=== PATIENT | male | born 1950 | race Caucasian/White ===

== ENCOUNTER 2016-07-28 11:21 | Emergency (ER) ==
[2016-07-28 11:32] VITALS: BP 135/63; TEMP 98.2; BMI 20.7
[2016-07-28 12:00] LABS: BASOPHILS # (AUTO) 0.1 K/uL (0-0.2); BASOPHILS % (AUTO) 0.9 % (0.0-3.0); EOSINOPHILS # (AUTO) 0.4 K/ul (0.0-0.7); EOSINOPHILS % (AUTO) 7.8 % (0.0-7.0); HEMATOCRIT 38.6 % (42.0-52.0); HEMOGLOBIN 12.4 g/dl (14.0-18.0); IMMATURE GRANULOCYTE % (AUTO) 0.2 % (0.0-5.0); LYMPHOCYTES # (AUTO) 2.4 K/uL (0.60-3.4); LYMPHOCYTES % (AUTO) 44.8 (10.0-50.0); MEAN CORPUSCULAR HEMOGLOBIN 29.8 pg (27.0-31.0); MEAN CORPUSCULAR HGB CONC 32.1 (31.8-35.4); MEAN CORPUSCULAR VOLUME 92.8 fl (80.0-94.0); MONOCYTES # (AUTO) 0.3 K/uL (0.4-2.0); MONOCYTES % (AUTO) 6.3 (0-10); NEUTROPHILS # (AUTO) 2.1 K/ul (2.0-6.9); PLATELET COUNT 235 10^3/uL (140-440); RED BLOOD COUNT 4.16 10^6/ul (4.70-6.10); WHITE BLOOD COUNT 5.36 K/ul (4.2-10.2)
[2016-07-28 12:20] LABS: ALBUMIN 3.9 g/dL (3.4-5.0); ALBUMIN/GLOBULIN RATIO 1.15; ANION GAP 10.2; BILIRUBIN,TOTAL 0.3 mg/dL (0.00-1.20); BUN/CREATININE RATIO 13.04; CALCIUM 9.2 mg/dL (8.2-10.2); CREATININE 0.92 mg/dL (0.60-1.10); POTASSIUM 4.2 mmol/L (3.5-5.1); TOTAL PROTEIN 7.3 g/dL (5.8-8.1)
--- NOTE | 2016-07-28 12:37 | CT ---
EXAM: CT of the chest without contrast. History: Cough. Comparison: Chest radiograph 03/21/2016, chest CT 06/21/2012 Technique: Multiplanar CT images through the thorax were obtained without the administration of IV contrast Findings: Heart size is normal. Coronary artery calcifications. Ectatic ascending aorta measuring 3.9 cm in caliber. No pathologically enlarged axillary lymph nodes. Calcified mediastinal and hil ar lymph nodes again noted. Emphysema again appreciated. Mild right basilar infiltrate. Biapical lung scarring, less noticeabl e on the right. There is new thickening along the left major fissure with focal nodule measuring 1 cm axial image 38. No pneumothorax and no pleural fluid. Calcified nodules again seen within the le ft lung. The within the visualized upper abdomen, no acute findings. No acute osseous abnormalities. Impression: 1. Mild right basilar pneumonia. 2. Biapical lung scarring again noted which has improved on the right. 3. There is new thickening of the left major fissure with 1 cm focal nodule. This nodule could be b enign or malignant. Consider correlation with PET CT. Otherwise, recommend follow-up chest CT in 3 -6 months. 4. Emphysema again noted. 5. Coronary artery disease.
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
== END 2016-07-28 13:34 | disposition home or self-care (01) ==
LOC: ED 11:21
DX: J18.9 Pneumonia, unspecified organism (principal); R91.1 Solitary pulmonary nodule; I10 Essential (primary) hypertension; J44.9 Chronic obstructive pulmonary disease, unspecified; Z79.899 Other long term (current) drug therapy; Z87.891 Personal history of nicotine dependence
CPT/HCPCS: 36415; 80053; 85025; 85379; 99283

== ENCOUNTER 2017-02-04 15:51 | Inpatient (IN) ==
[2017-02-04] MEDS ORDERED: SODIUM CHLORIDE 1,000 ML IV STA (16:04)
[2017-02-04] MEDS ORDERED: ROCEPHIN 1 GM in SODIUM CHLORIDE 50 ML IV STA (16:04)
[2017-02-04] MEDS ORDERED: SOLU-MEDROL 40 MG IVP STA (16:04)
[2017-02-04] MEDS ORDERED: ROCEPHIN ONE (16:24)
[2017-02-04 16:34] LABS: BASOPHILS % (AUTO) 0.4 % (0.0-3.0); EOSINOPHILS # (AUTO) 0.3 K/ul (0.0-0.7); EOSINOPHILS % (AUTO) 2.7 % (0.0-7.0); HEMATOCRIT 33.3 % (42.0-52.0); HEMOGLOBIN 10.8 g/dl (14.0-18.0); IMMATURE GRANULOCYTE % (AUTO) 0.3 % (0.0-5.0); LYMPHOCYTES # (AUTO) 1.7 K/uL (0.60-3.4); LYMPHOCYTES % (AUTO) 17.7 (10.0-50.0); MEAN CORPUSCULAR HEMOGLOBIN 30.3 pg (27.0-31.0); MEAN CORPUSCULAR HGB CONC 32.4 (31.8-35.4); MEAN CORPUSCULAR VOLUME 93.3 fl (80.0-94.0); MONOCYTES % (AUTO) 10.1 (0-10); NEUTROPHILS # (AUTO) 6.6 K/ul (2.0-6.9); NEUTROPHILS % (AUTO) 68.8; PLATELET COUNT 302 10^3/uL (140-440); RED BLOOD COUNT 3.57 10^6/ul (4.70-6.10); WHITE BLOOD COUNT 9.61 K/ul (4.2-10.2)
--- NOTE | 2017-02-04 16:45 | CT ---
EXAM: CT of the chest without contrast History: Productive cough. Comparison: Chest CT 07/28/2016 Technique: Multiplanar CT images through the thorax were obtained without the administration of IV c ontrast Findings: Heart size is normal. No coronary calcifications. Atherosclerotic vascular calcifications . Ectatic ascending aorta again noted. No axillary or mediastinal lymphadenopathy. Evaluation for hilar lymph nodes is limited due to lack of contrast administration. Scattered areas of lung scarrin g again noted. Emphysema. There is new consolidation within the right lower lobe. No pneumothorax. Increased size of nodule along the left major fissure now measuring 1.4 cm x 0.9 cm and previously m easured 1 cm. This nodule demonstrates spiculations. No pleural fluid and no pneumothorax. Within the visualized upper abdomen, no acute findings. Stable rim calcified nodule or vascular abno rmality within the left kidney. No acute osseous abnormalities. Impression: 1. Right lower lobe pneumonia. 2. Increasing size of spiculated nodule along the left major fissure is suspicious for malignancy. Biopsy recommended. 3. Emphysema.
[2017-02-04 16:46] LABS: ABG PH 7.368 (7.35-7.45)
[2017-02-04 16:47] LABS: ABG BASE EXCESS 6 (-2.0-2.0); ABG HCO3 31.4 (22.0-26.0); ABG PCO2 54.7 mmHg (35-45); ABG TCO2 33 (22.0-28.0)
[2017-02-04 16:50] LABS: FLU INTERNAL QC INTERNAL QC VALID; RAPID FLU A NEGATIVE (NEGATIVE); RAPID FLU B NEGATIVE (NEGATIVE)
[2017-02-04 16:54] LABS: ALBUMIN 3.1 g/dL (3.4-5.0); ALBUMIN/GLOBULIN RATIO 0.82; ANION GAP 11.9; BILIRUBIN,TOTAL 0.4 mg/dL (0.00-1.20); BUN/CREATININE RATIO 13.79; CALCIUM 9.2 mg/dL (8.2-10.2); CREATININE 0.87 mg/dL (0.60-1.10); POTASSIUM 3.9 mmol/L (3.5-5.1); TOTAL PROTEIN 6.9 g/dL (5.8-8.1)
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
[2017-02-04] MEDS ORDERED: TYLENOL PO PRN (17:21)
[2017-02-04] MEDS ORDERED: SODIUM CHLORIDE 1,000 ML IV SCH (17:30)
[2017-02-04 18:22] VITALS: BMI 21.5
[2017-02-04] MEDS: SOLU-MEDROL 40 MG IVP SCH (20:19)
[2017-02-04] MEDS: VANCOMYCIN 1 GM in SODIUM CHLORIDE 250 ML IV SCH (20:24)
[2017-02-04] MEDS: XOPENEX 0.63 MG NEB SCH (22:11)
[2017-02-05] MEDS ORDERED: XOPENEX 0.63 MG NEB ONE (04:55)
[2017-02-05] MEDS: XOPENEX 0.63 MG NEB SCH ×3 (05:21→19:16)
[2017-02-05 05:55] LABS: HEMATOCRIT 31.4 % (42.0-52.0); HEMOGLOBIN 10.1 g/dl (14.0-18.0); IMMATURE GRANULOCYTE % (AUTO) 0.5 % (0.0-5.0); LYMPHOCYTES % (AUTO) 12.4 (10.0-50.0); MEAN CORPUSCULAR HEMOGLOBIN 29.4 pg (27.0-31.0); MEAN CORPUSCULAR HGB CONC 32.2 (31.8-35.4); MEAN CORPUSCULAR VOLUME 91.3 fl (80.0-94.0); MONOCYTES # (AUTO) 0.2 K/uL (0.4-2.0); MONOCYTES % (AUTO) 1.9 (0-10); NEUTROPHILS # (AUTO) 6.6 K/ul (2.0-6.9); NEUTROPHILS % (AUTO) 85.2; PLATELET COUNT 245 10^3/uL (140-440); RED BLOOD COUNT 3.44 10^6/ul (4.70-6.10); WHITE BLOOD COUNT 7.73 K/ul (4.2-10.2)
[2017-02-05 06:16] LABS: ALANINE AMINOTRANSFERASE < 6 U/L (12-78); ALBUMIN 2.7 g/dL (3.4-5.0); ALBUMIN/GLOBULIN RATIO 0.71; ALKALINE PHOSPHATASE 53 U/L (56-119); ANION GAP 11.7; ASPARTATE AMINO TRANSFERASE 11 U/L (15-37); BILIRUBIN,TOTAL 0.25 mg/dL (0.00-1.20); BLOOD UREA NITROGEN 16 mg/dL (7-18); BUN/CREATININE RATIO 20.77; CALCIUM 8.9 mg/dL (8.2-10.2); CARBON DIOXIDE 28 mmol/L (23-31); CHLORIDE 102 mmol/L (98-107); CREATININE 0.77 mg/dL (0.60-1.10); GLUCOSE 147 mg/dL (82-115); POTASSIUM 4.7 mmol/L (3.5-5.1); SODIUM 137 mmol/L (136-145); TOTAL PROTEIN 6.5 g/dL (5.8-8.1)
[2017-02-05] MEDS: VANCOMYCIN 1 GM in SODIUM CHLORIDE 250 ML IV SCH ×2 (08:31→20:02)
[2017-02-05] MEDS: LOVENOX SUBCUT SCH (08:32)
[2017-02-05] MEDS: ATIVAN PO SCH ×3 (08:32→20:02)
[2017-02-05] MEDS: NORCO 10-325 PO SCH ×3 (08:33→20:02)
[2017-02-05] MEDS: NEURONTIN PO SCH ×3 (08:33→20:02)
[2017-02-05] MEDS: ZOLOFT PO SCH (08:33)
[2017-02-05] MEDS: ZITHROMAX PO SCH (08:34)
[2017-02-05] MEDS: COZAAR PO SCH (08:34)
[2017-02-05 08:43] LABS: IMMATURE RETIC FRACTION 13.9; RETICULOCYTE % 1.42 %
[2017-02-05] MEDS ORDERED: NORCO 10-325 PO SCH (09:00)
[2017-02-05] MEDS ORDERED: ATIVAN PO SCH (09:00)
[2017-02-05] MEDS ORDERED: NEURONTIN PO SCH (09:00)
[2017-02-05] MEDS ORDERED: NON-FORMULARY MEDICATION (Sertraline Hcl [Sertraline Hcl] 100 MG) PO SCH (09:00)
[2017-02-05] MEDS: SOLU-MEDROL 40 MG IVP SCH ×2 (09:05→20:00)
[2017-02-05 09:28] LABS: FERRITIN 87.06 ng/mL (21.81-274.66); FOLATE 13.4 ng/mL (3.1-20.5)
[2017-02-05 09:47] LABS: ABG BASE EXCESS 0 (-2.0-2.0); ABG HCO3 25.6 (22.0-26.0); ABG PH 7.372 (7.35-7.45)
[2017-02-05 09:48] LABS: ABG TCO2 27 (22.0-28.0)
[2017-02-06] MEDS: XOPENEX 0.63 MG NEB SCH ×3 (05:06→19:02)
[2017-02-06 05:07] LABS: BASOPHILS % (AUTO) 0.1 % (0.0-3.0); HEMATOCRIT 29.9 % (42.0-52.0); HEMOGLOBIN 9.7 g/dl (14.0-18.0); IMMATURE GRANULOCYTE % (AUTO) 0.4 % (0.0-5.0); LYMPHOCYTES % (AUTO) 8.8 (10.0-50.0); MEAN CORPUSCULAR HEMOGLOBIN 29.7 pg (27.0-31.0); MEAN CORPUSCULAR HGB CONC 32.4 (31.8-35.4); MEAN CORPUSCULAR VOLUME 91.4 fl (80.0-94.0); MONOCYTES # (AUTO) 0.4 K/uL (0.4-2.0); MONOCYTES % (AUTO) 3.6 (0-10); NEUTROPHILS # (AUTO) 10.1 K/ul (2.0-6.9); NEUTROPHILS % (AUTO) 87.1; PLATELET COUNT 268 10^3/uL (140-440); RED BLOOD COUNT 3.27 10^6/ul (4.70-6.10); WHITE BLOOD COUNT 11.54 K/ul (4.2-10.2)
[2017-02-06 05:28] LABS: ALANINE AMINOTRANSFERASE < 6 U/L (12-78); ALBUMIN 2.6 g/dL (3.4-5.0); ALBUMIN/GLOBULIN RATIO 0.72; ALKALINE PHOSPHATASE 47 U/L (56-119); ANION GAP 9.9; ASPARTATE AMINO TRANSFERASE 11 U/L (15-37); BILIRUBIN,TOTAL 0.18 mg/dL (0.00-1.20); BLOOD UREA NITROGEN 18 mg/dL (7-18); BUN/CREATININE RATIO 23.68; CALCIUM 8.8 mg/dL (8.2-10.2); CARBON DIOXIDE 29 mmol/L (23-31); CHLORIDE 101 mmol/L (98-107); CREATININE 0.76 mg/dL (0.60-1.10); GLUCOSE 140 mg/dL (82-115); POTASSIUM 4.9 mmol/L (3.5-5.1); SODIUM 135 mmol/L (136-145); TOTAL PROTEIN 6.2 g/dL (5.8-8.1)
[2017-02-06] MEDS: COZAAR PO SCH (08:28)
[2017-02-06] MEDS: NORCO 10-325 PO SCH ×3 (08:28→23:13)
[2017-02-06] MEDS: ATIVAN PO SCH ×3 (08:28→21:12)
[2017-02-06] MEDS: ZITHROMAX PO SCH (08:29)
[2017-02-06] MEDS: NEURONTIN PO SCH ×3 (08:29→21:12)
[2017-02-06] MEDS: ZOLOFT PO SCH (08:29)
[2017-02-06] MEDS: VANCOMYCIN 1 GM in SODIUM CHLORIDE 250 ML IV SCH ×2 (09:06→21:12)
[2017-02-06] MEDS: SOLU-MEDROL 40 MG IVP SCH ×2 (09:07→21:12)
[2017-02-06] MEDS: LOVENOX SUBCUT SCH (09:07)
--- NOTE | 2017-02-06 09:20 | DI ---
EXAM: Chest two view, frontal and lateral views. HISTORY: Pneumonia. COMPARISON: 02/04/2017. FINDINGS: The heart size is normal. There is no pulmonary vascular congestion. The lungs are hyper expanded with calcified granulomatous changes. Linear scarring in the upper lobes again seen. Left p erihilar nodular density is stable. Mild consolidation in the posterior right lower lobe is stable. No new areas of consolidation are seen. No pleural effusion or pneumothorax is seen. No acute oss eous abnormality identified. IMPRESSION: 1. Stable right lower lobe consolidation. 2. Stable left perihilar nodular density. 3. Continued follow-up is recommended.
--- NOTE | 2017-02-06 10:42 | HP ---
DATE OF SERVICE: 02/04/17 REASON FOR HOSPITALIZATION/HISTORY OF PRESENT ILLNESS: The patient says that he has seen marked improvement after the treatment that he received in the emergency room with condition stable. Lung has a nodule which is suspicious for malignancy. The patient denies of any hemoptysis. PAST MEDICAL HISTORY/PAST SURGICAL HISTORY: COPD Suspicious looking nodule on the lung followed by Dr. Quiroz who is [facility] pulmonary physician. The primary physician is Kimberly Cannno in [place] Depression Anxiety syndrome Generalize osteoarthritis Neuropathy REVIEW OF SYSTEMS: CONSTITUTIONAL: No night sweats. Fatigue and tired feeling. No fever or chills. HEENT: Eyes: No visual changes. No eye pain. No eye discharge. ENT: No runny nose. No epistaxis. No sinus pain. No sore throat. No odynophagia. No ear pain. No congestion. RESPIRATORY: Cough with yellowis sputum production. No hemoptysis. Shortness of breath on exertion as usual. CARDIOVASCULAR: No angina symptoms. No CHF symptoms. No atypical chest pain for CAD. No palpitations. No orthopnea. No PND. GASTROINTESTINAL: No abdominal pain. No nausea or vomiting. No diarrhea or constipation. No hematemesis. No hematochezia. GENITOURINARY: No urgency. No frequency. No dysuria. No hematuria. No obstructive symptoms. No discharge. No pain. No significant abnormal bleeding. MUSCULOSKELETAL: No musculoskeletal pain. No joint swelling. No arthritis. NEUROLOGICAL: No headache. No neck pain. No syncope. No seizures. No dizziness. PSYCHIATRIC: Not anxious. No depression. No suicidal thoughts. No homicidal thoughts. SKIN: No rash. No lesions. No wounds. ENDOCRINE: No unexplained weight loss. No weight gain. HEMATOLOGIC/LYMPHATIC: No anemia. No purpura. No petechiae. No prolonged or excessive bleeding. No palpable lymph nodes. PERSONAL/FAMILY/SOCIAL HISTORY: The patient is and lives with the . Has several children and grandchildren. He does all activity of daily living. Quit smoking a year and a half ago. No alcohol abuse. Used to drink heavy in the past. MEDICATIONS: Gabapentin 100mg Po daily Hydrocodone 10-325mg one a day Lorazepam 0.5mg daily Losartan 100mg PO daily Sertraline 100mg PO daily ALLERGIES: None PHYSICAL EXAMINATION: VITAL SIGNS: Temperature 100, pulse 90, respiratory rate 20, blood pressure 109 /66 with pulse ox 90% on room. HEENT: Head normocephalic, atraumatic. Eyes: Extraocular muscles are intact. Pupils are equal, round and reactive to light and accommodation. Ears: No lesions. Nose appeared normal. Throat: No exudate or erythema. NECK: Supple. No JVP, no carotid bruit. No lymphadenopathy or thyromegaly. LUNGS: Decreased breath sounds bilaterally. Percussion note normal. Chest symmetrical. HEART: S1, S2, no S3. No murmurs. No cyanosis or clubbing. No ascites. Pulses: Dorsalis pedis and posterior tibial pulses +2 both sides. ABDOMEN: Soft. Nontender. Bowel sounds active. No CVA tenderness. No mass felt. EXTREMITIES: No edema. Full range of motion of all extremities, equal. NEUROLOGIC: No focal deficit. Cranial nerves II through XII are grossly intact. No headache, no double vision or headache. Normal mental status. SKIN: Not dry. Intact. Turgor - normal. LYMPHATIC: No palpable lymph nodes/no lymphedema. MUSCULOSKELETAL: Normal joints with no swelling. Muscle tone is normal. LABS: Sodium 140, creatinine 0.8, BUN 12, liver profile normal, BNP 49, ABG on 3 liters showed pH 7.36 with pO2 74, pCO2 54 with 94% saturation. Hgb 10.8, hct 33 , WBC 9,600 normal differential. ASSESSMENT: 1. Pneumonia 2. Acute bronchitis 3. Severe chronic lung disease 4. Possibility of C of lung with positive biopsy which has to be redone again at [place] 5. Depression controlled with Zoloft 6. Neuropathy controlled with Gabapentin PLAN: 1. Give IV fluids 2. Telemetry 4. Monitor arterial blood gasses and oximetry 5. NEBS treatment as ordered 6. Zithromax 500mg PO daily for three days 7. Vancomycin 1mg Q 12hours 8. Solu-Medrol 40mg Q 12 9. Continue Zoloft and Losartan All the diagnosis discussed with the patient and the patient's condition seems to be stable at present time. TIME SPENT: More than 70 minutes. MTDD
--- NOTE | 2017-02-06 11:33 | PN ---
DATE OF SERVICE: 02/05/17 SUBJECTIVE: 66 year old white male hospitalized with pneumonia. The patient has acute bronchitis. He feels a lot better. He is sitting up and eating well. Oxygen saturation on room air is 92%. REVIEW OF SYSTEMS: CONSTITUTIONAL: No night sweats. No fatigue, malaise, lethargy. No fever or chills. HEENT: Eyes: No visual changes. No eye pain. No eye discharge. ENT: No runny nose. No epistaxis. No sinus pain. No sore throat. No odynophagia. No congestion. RESPIRATORY: Mild cough, no congestion. No hemoptysis. No shortness of breath. CARDIOVASCULAR: No angina symptoms. No CHF symptoms. No atypical chest pain for CAD. No palpitations. No orthopnea. GASTROINTESTINAL: No abdominal pain. No nausea or vomiting. No diarrhea or constipation. No hematemesis. No hematochezia. Appetite has improved. GENITOURINARY: No urgency. No frequency. No dysuria. No hematuria. No obstructive symptoms. No discharge. No pain. No significant abnormal bleeding. MUSCULOSKELETAL: No musculoskeletal pain; no joint swelling. NEUROLOGICAL: No headache. No neck pain. No syncope. No seizures. No dizziness. PSYCHIATRIC: Not anxious. No depression. No suicidal thoughts. No homicidal thoughts. SKIN: No rash. No lesions. No wounds. ENDOCRINE: No unexplained weight loss. No weight gain. HEMATOLOGIC/LYMPHATIC: No anemia. No purpura. No petechiae. No prolonged or excessive bleeding. No palpable lymph nodes. PHYSICAL EXAMINATION: GENERAL: The patient is oriented to time, place and person VITAL SIGNS: Temperature 97.9, pulse 50, respiratory rate 20, blood pressure 117/60 and pulse ox 98%. HEENT: Head normocephalic, atraumatic. Eyes: Extraocular muscles are intact. Pupils are equal, round and reactive to light and accommodation. Ears: No lesions. Nose appeared normal. Throat: No exudate or erythema. NECK: Supple. No JVD, no carotid bruit. No lymphadenopathy or thyromegaly. LUNGS: Decreased breath sounds but clear to auscultation. Percussion note normal. Chest symmetrical. HEART: S1, S2, no S3. No murmurs. No cyanosis or clubbing. No ascites. Pulses: Dorsalis pedis and posterior tibial pulses +1 to +2 both sides. ABDOMEN: Soft. Nontender. Bowel sounds active. No CVA tenderness. No mass felt. EXTREMITIES: No edema. Full range of motion of all extremities, equal. NEUROLOGIC: No focal deficit. Cranial nerves II through XII are grossly intact. No headache, no double vision or headache. SKIN: Not dry. Intact. Turgor - normal. LYMPHATIC: No palpable lymph nodes/no lymphedema. MUSCULOSKELETAL: Normal joints with no swelling. Muscle tone is normal. LABS: Hgb 10.1, hct 31. ASSESSMENT: 1. Pneumonia 2. Chronic lung disease 3. Abnormal biopsy of the left nodule in the lung being followed by Fast Food Worker in [facility]. 4. Hypertension, controlled 5. Depression controlled. PLAN: 1. Anemia profile 2. Stool for occult blood 3. ABG's on room air 4. X-Ray of the chest in the morning CONDITION: Stable TIME SPENT: More than 30 minutes. Plan and coordination of the patient's care discussed in the presence of nurse. ROBIN
[2017-02-07] MEDS: XOPENEX 0.63 MG NEB SCH (05:21)
[2017-02-07] MEDS ORDERED: ROCEPHIN 1 GM in SODIUM CHLORIDE 50 ML IV STA (08:34)
[2017-02-07] MEDS ORDERED: FERROUS SULFATE PO SCH (09:00)
[2017-02-07] MEDS: ATIVAN PO SCH (09:06)
[2017-02-07] MEDS: COZAAR PO SCH (09:06)
[2017-02-07] MEDS: NEURONTIN PO SCH (09:06)
[2017-02-07] MEDS: NORCO 10-325 PO SCH (09:06)
[2017-02-07 09:07] LABS: BASOPHILS % (AUTO) 0.1 % (0.0-3.0); HEMOGLOBIN 10.3 g/dl (14.0-18.0); IMMATURE GRANULOCYTE % (AUTO) 0.4 % (0.0-5.0); LYMPHOCYTES # (AUTO) 1.1 K/uL (0.60-3.4); LYMPHOCYTES % (AUTO) 14.1 (10.0-50.0); MEAN CORPUSCULAR HEMOGLOBIN 29.9 pg (27.0-31.0); MEAN CORPUSCULAR HGB CONC 33.2 (31.8-35.4); MEAN CORPUSCULAR VOLUME 89.9 fl (80.0-94.0); MONOCYTES # (AUTO) 0.5 K/uL (0.4-2.0); MONOCYTES % (AUTO) 6.5 (0-10); NEUTROPHILS # (AUTO) 6.1 K/ul (2.0-6.9); NEUTROPHILS % (AUTO) 78.9; PLATELET COUNT 321 10^3/uL (140-440); RED BLOOD COUNT 3.45 10^6/ul (4.70-6.10); WHITE BLOOD COUNT 7.73 K/ul (4.2-10.2)
[2017-02-07] MEDS: ZOLOFT PO SCH (09:07)
[2017-02-07] MEDS: ZITHROMAX PO SCH (09:07)
[2017-02-07] MEDS: SOLU-MEDROL 40 MG IVP SCH (09:08)
[2017-02-07] MEDS: LOVENOX SUBCUT SCH (09:08)
[2017-02-07 09:21] LABS: ALBUMIN 2.8 g/dL (3.4-5.0); ALBUMIN/GLOBULIN RATIO 0.78; BILIRUBIN,TOTAL 0.24 mg/dL (0.00-1.20); BUN/CREATININE RATIO 20.83; CREATININE 0.72 mg/dL (0.60-1.10); TOTAL PROTEIN 6.4 g/dL (5.8-8.1)
[2017-02-07 10:17] VITALS: BP 138/68; TEMP 98
--- NOTE | 2017-02-07 10:25 | PCM.PROG ---
Attending Provider: ATTENDING PROVIDER: [facility] This patient is seen with Rachael Oliver, Nurse Practitioner. DATE OF SERVICE: 02/07/17 SUBJECTIVE: This 66 year old WHITE/ M was hospitalized 02/04/17. The patient is sitting up in bed, alert. He states he is ready to go home. He has been coughing some but improved. REVIEW OF SYSTEMS: CONSTITUTIONAL: No night sweats. No fatigue, malaise, lethargy. No fever or chills. HEENT: Eyes: No visual changes. No eye pain. No eye discharge. ENT: No runny nose. No epistaxis. No sinus pain. No odynophagia. No congestion. RESPIRATORY: Cough and congestion. No hemoptysis. No shortness of breath. CARDIOVASCULAR: No angina symptoms. No CHF symptoms. No atypical chest pain for CAD. No palpitations. No orthopnea.. GASTROINTESTINAL: No abdominal pain. No nausea or vomiting. No diarrhea or constipation. No hematemesis. No hematochezia. GENITOURINARY: No urgency. No frequency. No dysuria. No hematuria. No obstructive symptoms. No discharge. No pain. No significant abnormal bleeding. MUSCULOSKELETAL: No musculoskeletal pain; no joint swelling. NEUROLOGICAL: Awake, alert, oriented to time, place and person. No headache. No neck pain. No syncope. No seizures. No dizziness. PSYCHIATRIC: Not anxious. No depression. No suicidal thoughts. No homicidal thoughts. SKIN: No rash. No lesions. No wounds. ENDOCRINE: No unexplained weight loss. No weight gain. HEMATOLOGIC/LYMPHATIC: No anemia. No purpura. No petechiae. No prolonged or excessive bleeding. No palpable lymph nodes. PHYSICAL EXAMINATION: GENERAL: The patient is awake, alert and oriented, sitting in bed in no distress. VITAL SIGNS: Temperature 98.2 F, Pulse 63, Respiratory Rate 20, BP 140/65, Pulse Ox 97% HEENT: Head normocephalic, atraumatic. Eyes: Extraocular muscles are intact. Pupils are equal, round and reactive to light and accommodation. Ears: No lesions. Nose appeared normal. Throat: No exudate or erythema. NECK: Supple. No JVD, no carotid bruit. No lymphadenopathy or thyromegaly. LUNGS: Diminished breath sounds. Crepitations left middle lobe. Percussion note normal. Chest symmetrical. HEART: S1, S2, no S3. No murmurs. No cyanosis or clubbing. No ascites. Pulses: Dorsalis pedis and posterior tibial pulses +1 to +2 both sides. ABDOMEN: Soft. Non-tender. Bowel sounds active. No CVA tenderness. No mass felt. EXTREMITIES: No edema. Full range of motion of all extremities, equal. NEUROLOGIC: No focal deficit. Cranial nerves II through XII are grossly intact. No headache, no double vision or headache. SKIN: Not dry. Intact. Turgor-normal. LYMPHATIC: No palpable lymph nodes/no lymphedema. MUSCULOSKELETAL: Normal joints with no swelling. Muscle tone is normal. LAB REVIEW: 02/06/17 05:05 02/06/17 05:05 02/05/17 05:00: Transferrin 208 ASSESSMENT: 1. Pneumonia, right lower lobe 2. Acute bronchitis 3. Severe chronic lung disease 4. Possibility of CA of lung with positive biopsy which has to be redone again at [place] 5. Left perihilar nodule sees Dr. Quiroz and [place] 5. Depression controlled with Zoloft 6. Neuropathy controlled with Gabapentin 7. Anemia PLAN: 1. Discharge home today 2. CBC and CMP this a.m. 3. Ferrous Sulfate 325 b.i.d. 4. Rocephin 1 gm one dose IV before discharge 5. Sputum culture 6. Keflex 500 t.i.d.for 7 days 7. Prednisone 20 b.i.d. times two days, 10 mg b.i.d. times 5 days Plan and coordination of the patient's care discussed in the presence of Insulation Board Back Tender and nurse. CONDITION: Stable SCRIBED BY: PHOEBE BLUE Chip Crusher Operator scribed while in presence of service performed by Dr. Pitt/Rachael Oliver APRN on 02/07/17 ([id number])
[2017-02-07 10:55] LABS: OCCULT BLOOD INTERNAL QC 1 INTERNAL QC VALID; OCCULT BLOOD SAMPLE 1 NEGATIVE (NEGATIVE)
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
[2017-02-08 01:39] LABS: OCCULT BLOOD INTERNAL QC 2 INTERNAL QC VALID; OCCULT BLOOD SAMPLE 2 NO SPECIMEN RECEIVED (NEGATIVE)
[2017-02-08 01:40] LABS: OCCULT BLOOD INTERNAL QC 3 INTERNAL QC VALID; OCCULT BLOOD SAMPLE 3 NO SPECIMEN RECEIVED (NEGATIVE)
--- NOTE | 2017-02-08 11:12 | PN ---
DATE OF SERVICE: 02/07/17 SUBJECTIVE: 66 year old white male hospitalized with acute respiratory failure and pneumonia. The patient's condition has improved a lot, clinically he is a lot better. He is coughing is much less. Sputum as cleared up. He says it used to look like a pudding but it is clear sputum. REVIEW OF SYSTEMS: CONSTITUTIONAL: No night sweats. No fatigue, malaise, lethargy. No fever or chills. HEENT: Eyes: No visual changes. No eye pain. No eye discharge. ENT: No runny nose. No epistaxis. No sinus pain. No sore throat. No odynophagia. No congestion. RESPIRATORY: No cough, no congestion. No hemoptysis. No shortness of breath. CARDIOVASCULAR: No angina symptoms. No CHF symptoms. No atypical chest pain for CAD. No palpitations. No orthopnea. GASTROINTESTINAL: No abdominal pain. No nausea or vomiting. No diarrhea or constipation. No hematemesis. No hematochezia. GENITOURINARY: No urgency. No frequency. No dysuria. No hematuria. No obstructive symptoms. No discharge. No pain. No significant abnormal bleeding. MUSCULOSKELETAL: No musculoskeletal pain; no joint swelling. NEUROLOGICAL: No headache. No neck pain. No syncope. No seizures. No dizziness. PSYCHIATRIC: Not anxious. No depression. No suicidal thoughts. No homicidal thoughts. SKIN: No rash. No lesions. No wounds. ENDOCRINE: No unexplained weight loss. No weight gain. HEMATOLOGIC/LYMPHATIC: No anemia. No purpura. No petechiae. No prolonged or excessive bleeding. No palpable lymph nodes. PHYSICAL EXAMINATION: GENERAL: The patient is oriented to time, place and person. HEENT: Head normocephalic, atraumatic. Eyes: Extraocular muscles are intact. Pupils are equal, round and reactive to light and accommodation. Ears: No lesions. Nose appeared normal. Throat: No exudate or erythema. NECK: Supple. No JVD, no carotid bruit. No lymphadenopathy or thyromegaly. LUNGS: Decreased breath sounds but clear to auscultation. Percussion note normal. Chest symmetrical. HEART: S1, S2, no S3. No murmurs. No cyanosis or clubbing. No ascites. Pulses: Dorsalis pedis and posterior tibial pulses +1 to +2 both sides. ABDOMEN: Soft. Nontender. Bowel sounds active. No CVA tenderness. No mass felt. EXTREMITIES: No edema. Full range of motion of all extremities, equal. NEUROLOGIC: No focal deficit. Cranial nerves II through XII are grossly intact. No headache, no double vision or headache. SKIN: Not dry. Intact. Turgor - normal. LYMPHATIC: No palpable lymph nodes/no lymphedema. MUSCULOSKELETAL: Normal joints with no swelling. Muscle tone is normal. ASSESSMENT: 1. Acute pneumonitis/bronchitis seems to be resolving 2. Pneumonia seems to have resolved clinically. Chest x-ray still shows right lower lobe consolidation. Which is mild I think it is more or like atelectasis. PLAN: 1. We will keep one more day. 2. Patient will have left nodule biopsy by Dr. Quiroz who is a pulmonary physician at [place] again. 3. Strongly advised to followup with Nisha Cannon the Nurse Practitioner and Pulmonary MD at [place]. All the diagnosis discussed with the patient CONDITION: Stable. TIME SPENT: More than 30 minutes. Plan and coordination of the patient's care discussed in the presence of nurse. ROBIN
--- NOTE | 2017-02-08 14:13 | PN ---
DATE OF SERVICE: 02/07/17 SUBJECTIVE: 66 year old white male hospitalized with pneumonia. The patient has questionable biopsy of left lung nodules which is to be repeated followed by Dr. Quiroz. Also being seen by Kimberly Cannon, [facility]. The patient's condition has improved a lot. PHYSICAL EXAMINATION: GENERAL: The patient is up and about. HEENT: Head normocephalic, atraumatic. Eyes: Extraocular muscles are intact. Pupils are equal, round and reactive to light and accommodation. Ears: No lesions. Nose appeared normal. Throat: No exudate or erythema. NECK: Supple. No JVD, no carotid bruit. No lymphadenopathy or thyromegaly. LUNGS: Clear with decreased breath sounds. Percussion note normal. Chest symmetrical. HEART: S1, S2, no S3. No murmurs. No cyanosis or clubbing. No ascites. Pulses: Dorsalis pedis and posterior tibial pulses +1 to +2 both sides. ABDOMEN: Soft. Nontender. Bowel sounds active. No CVA tenderness. No mass felt. Appetite has improved. EXTREMITIES: No edema. Full range of motion of all extremities, equal. NEUROLOGIC: No focal deficit. Cranial nerves II through XII are grossly intact. No headache, no double vision or headache. SKIN: Not dry. Intact. Turgor - normal. LYMPHATIC: No palpable lymph nodes/no lymphedema. MUSCULOSKELETAL: Normal joints with no swelling. Muscle tone is normal. LABS: Chest x-ray unchanged still but clinically the patient has improved remarkably. PLAN: 1. The patient is going to be discharged home. 2. His oxygen saturation on room air is 97%. CONDITION: stable The patient was seen and examined with Nurse Practitioner. TIME SPENT: More than 30 minutes. Plan and coordination of the patient's care discussed in the presence of nurse. ROBIN
--- NOTE | 2017-02-08 14:16 | PN ---
02/04/17: Admission Level 5 02/05/17: Intermediate 02/06/17: Intermediate 02/07/17: D as in discharge MTDD
== END 2017-02-07 12:07 | disposition home or self-care (01) | DRG 194 ==
LOC: ED 15:51 → MEDSURG A 17:25
PROVIDERS: ADMIT Internal Medicine; ATTEND Internal Medicine
DX: J18.1 Lobar pneumonia, unspecified organism (principal); J44.0 Chronic obstructive pulmonary disease with (acute) lower respiratory infection; J20.9 Acute bronchitis, unspecified; R06.02 Shortness of breath; R50.9 Fever, unspecified; I10 Essential (primary) hypertension; R91.1 Solitary pulmonary nodule; J44.9 Chronic obstructive pulmonary disease, unspecified; D64.9 Anemia, unspecified; F41.8 Other specified anxiety disorders; M19.90 Unspecified osteoarthritis, unspecified site; G62.9 Polyneuropathy, unspecified; Z79.899 Other long term (current) drug therapy; Z89.222 Acquired absence of left upper limb above elbow
CPT/HCPCS: 36415; 80053; 80202; 82272; 82607; 82728; 82746; 82803; 83540; 83550; 83605; 83880; 84145; 84466; 85025; 85045; 87040; 87070; 87651; 87804; 87880; 93005; 93010; 94640; 96375; 99285

== ENCOUNTER 2017-03-25 17:51 | Inpatient (IN) ==
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
--- NOTE | 2017-03-25 18:55 | CT ---
EXAM: CT chest without contrast TECHNIQUE: Helical axial CT of the chest was performed without contrast with coronal and sagittal rec onstructions. COMPARISON: CT chest from 02/04/2017 HISTORY: Short of breath FINDINGS: Lung parenchyma: There is an extensive area of airspace consolidation abutting the major fissure invo lving the left upper lobe. There is a small left-sided effusion with some atelectasis in the left lo wer lobe. There is some chronic scarring in the right apex. There are extensive emphysematous catherine es. Mediastinum: No pathologic hilar or mediastinal adenopathy. There are some scattered nonpathologic me diastinal lymph nodes. There are advanced coronary calcifications. There is no pericardial effusion. There are extensive aortic calcifications. There is no aortic aneurysm. There is old granulomatous di sease. Upper Abdomen: There is a stable curvilinear calcification seen involving the left kidney possibly a partially calcified renal cyst. Osseous structures: Nothing acute. Surrounding soft tissues including the thyroid gland are normal. No supraclavicular or axillary adeno jeri. IMPRESSION: 1. Left upper lobe pneumonia as described with associated effusion. 2. Other miscellaneous findings as detailed above.
[2017-03-25] MEDS ORDERED: TYLENOL PO PRN (20:13)
[2017-03-25] MEDS ORDERED: ZITHROMAX PO SCH (20:30)
[2017-03-25] MEDS ORDERED: ROCEPHIN 1 GM in SODIUM CHLORIDE 50 ML IV SCH (20:30)
[2017-03-25 21:02] VITALS: BMI 21.7
[2017-03-25] MEDS ORDERED: ROCEPHIN ONE (22:23)
[2017-03-25] MEDS: SODIUM CHLORIDE 1,000 ML IV SCH (22:28)
[2017-03-25] MEDS: SOLU-MEDROL 40 MG IVP SCH (22:31)
[2017-03-25] MEDS ORDERED: SODIUM CHLORIDE 50 ML IV ONE (22:32)
[2017-03-25] MEDS: SYMBICORT 160-4.5 MCG INHALER IH SCH (22:32)
[2017-03-25] MEDS: NORCO 10-325 PO SCH (22:34)
[2017-03-25] MEDS: NEURONTIN PO SCH (22:35)
[2017-03-25] MEDS: FERROUS SULFATE PO SCH (22:35)
[2017-03-25] MEDS: ATIVAN PO SCH (22:35)
[2017-03-25] MEDS: DUONEB NEB SCH (23:55)
[2017-03-26] MEDS: DUONEB NEB SCH ×4 (04:26→23:25)
[2017-03-26] MEDS ORDERED: PREDNISONE PO SCH (08:00)
[2017-03-26] MEDS: LOVENOX SUBCUT SCH (08:16)
[2017-03-26] MEDS: SOLU-MEDROL 40 MG IVP SCH ×2 (08:16→21:20)
[2017-03-26] MEDS: ZOLOFT PO SCH (08:17)
[2017-03-26] MEDS: NORCO 10-325 PO SCH ×3 (08:17→21:02)
[2017-03-26] MEDS: NEURONTIN PO SCH ×3 (08:17→21:03)
[2017-03-26] MEDS: ATIVAN PO SCH ×3 (08:17→21:02)
[2017-03-26] MEDS: FERROUS SULFATE PO SCH ×2 (08:17→21:03)
[2017-03-26] MEDS: SODIUM CHLORIDE 1,000 ML IV SCH (08:17)
[2017-03-26] MEDS: SYMBICORT 160-4.5 MCG INHALER IH SCH ×2 (08:18→21:02)
[2017-03-26] MEDS: SPIRIVA IH SCH (08:18)
[2017-03-26] MEDS: COZAAR PO SCH (08:23)
[2017-03-26] MEDS ORDERED: NON-FORMULARY MEDICATION (Sertraline Hcl [Sertraline Hcl] 100 MG) PO SCH (09:00)
[2017-03-26] MEDS: PROTONIX PO SCH (17:23)
[2017-03-26] MEDS: ZITHROMAX PO SCH (21:02)
[2017-03-26] MEDS: ROCEPHIN 1 GM in SODIUM CHLORIDE 50 ML IV SCH (21:03)
[2017-03-27] MEDS: SODIUM CHLORIDE 1,000 ML IV SCH ×2 (01:00→14:14)
[2017-03-27] MEDS: DUONEB NEB SCH ×4 (04:25→23:10)
[2017-03-27] MEDS: PROTONIX PO SCH ×2 (06:05→16:27)
[2017-03-27] MEDS: SPIRIVA IH SCH (09:00)
[2017-03-27] MEDS: SYMBICORT 160-4.5 MCG INHALER IH SCH ×2 (09:00→21:31)
[2017-03-27] MEDS: LOVENOX SUBCUT SCH (09:00)
[2017-03-27] MEDS: NEURONTIN PO SCH ×3 (09:01→21:31)
[2017-03-27] MEDS: NORCO 10-325 PO SCH ×3 (09:01→21:31)
[2017-03-27] MEDS: ATIVAN PO SCH ×3 (09:01→21:31)
[2017-03-27] MEDS: FERROUS SULFATE PO SCH ×2 (09:01→21:31)
[2017-03-27] MEDS: ZOLOFT PO SCH (09:01)
[2017-03-27] MEDS: SOLU-MEDROL 40 MG IVP SCH ×2 (09:05→21:36)
[2017-03-27] MEDS: COZAAR PO SCH (09:11)
[2017-03-27] MEDS ORDERED: COZAAR PO SCH (17:23)
[2017-03-27] MEDS: ROCEPHIN 1 GM in SODIUM CHLORIDE 50 ML IV SCH (21:31)
[2017-03-27] MEDS: ZITHROMAX PO SCH (21:31)
[2017-03-28] MEDS: DUONEB NEB SCH ×4 (04:18→20:39)
[2017-03-28] MEDS: SODIUM CHLORIDE 1,000 ML IV SCH ×2 (05:00→05:17)
[2017-03-28] MEDS: PROTONIX PO SCH ×2 (05:55→16:03)
[2017-03-28] MEDS: SPIRIVA IH SCH (08:44)
[2017-03-28] MEDS: SYMBICORT 160-4.5 MCG INHALER IH SCH ×2 (08:44→21:55)
[2017-03-28] MEDS: NORCO 10-325 PO SCH ×3 (08:44→22:02)
[2017-03-28] MEDS: LOVENOX SUBCUT SCH (08:44)
[2017-03-28] MEDS: FERROUS SULFATE PO SCH ×2 (08:44→21:57)
[2017-03-28] MEDS: NEURONTIN PO SCH ×3 (08:44→21:58)
[2017-03-28] MEDS: SOLU-MEDROL 40 MG IVP SCH ×2 (08:44→20:12)
[2017-03-28] MEDS: ZOLOFT PO SCH (08:44)
[2017-03-28] MEDS: ATIVAN PO SCH ×3 (08:44→21:58)
[2017-03-28] MEDS ORDERED: LASIX IVP STA (15:00)
--- NOTE | 2017-03-28 16:05 | DI ---
EXAM: Chest two views HISTORY: Pneumonia COMPARISON: 02/06/2017 TECHNIQUE: Two views of the chest were performed FINDINGS: Left upper lobe consolidation. Emphysematous change. There is no pleural effusion or pne umothorax. The heart is normal in size. The mediastinal contour is normal, noting atherosclerosis. There are no acute abnormalities of the bones. IMPRESSION: 1. Left upper lobe pneumonia. Mild left basilar atelectasis and/or pneumonia. Recommend continued f ollow-up to resolution. 2. Emphysema.
[2017-03-28] MEDS: ROCEPHIN 1 GM in SODIUM CHLORIDE 50 ML IV SCH (21:55)
[2017-03-28] MEDS: ZITHROMAX PO SCH (21:57)
[2017-03-29 05:14] VITALS: BP 151/60; TEMP 97.6
[2017-03-29] MEDS: DUONEB NEB SCH ×2 (05:18→10:09)
[2017-03-29] MEDS: PROTONIX PO SCH (05:45)
[2017-03-29] MEDS: ATIVAN PO SCH (09:01)
[2017-03-29] MEDS: FERROUS SULFATE PO SCH (09:01)
[2017-03-29] MEDS: LOVENOX SUBCUT SCH (09:01)
[2017-03-29] MEDS: ZOLOFT PO SCH (09:02)
[2017-03-29] MEDS: NEURONTIN PO SCH (09:02)
[2017-03-29] MEDS: NORCO 10-325 PO SCH (09:02)
[2017-03-29] MEDS: SOLU-MEDROL 40 MG IVP SCH (09:02)
[2017-03-29] MEDS: SPIRIVA IH SCH (09:03)
[2017-03-29] MEDS: SYMBICORT 160-4.5 MCG INHALER IH SCH (09:03)
--- NOTE | 2017-03-29 11:40 | HP ---
DATE OF SERVICE: 03/25/17 CHIEF COMPLAINT: Cough, congestion, shortness of breath. HISTORY OF PRESENT ILLNESS: This is a 67-year-old male with multiple medical problems and COPD. He has been followed by Dr. Tena, hydroelectric systems technician. He has been having more shortness of breath, cough and congestion, getting yellow-green phlegm, low grade temperature at home. He came to the emergency room as shortness of breath is getting worse. Temperature 100.9 in the emergency room. He was seen by Dr. Arevalo in the emergency room. White count was normal. Hemoglobin 10.8. Chemistry normal. Serology was negative for the flu. ABG showed pH 7.449, pc02 39.1, bicarb 27. At that time, the patient was admitted to the hospital for IV antibiotics and breathing treatments. REVIEW OF SYSTEMS: CONSTITUTIONAL: Weakness, tiredness. No fever, no chills. HEENT: Normal. ENDOCRINE: No weight gain; no weight loss. CVS: No chest pain. No PND, no orthopnea. Shortness of breath. No PND, no orthopnea. RESPIRATORY: Cough and congestion. No hemoptysis. GI: No nausea, no vomiting. No abdominal pain. No melena. : No hematuria. No polyuria. MUSCULOSKELETAL: No joint swelling. PSYCHIATRIC: Not anxious. No depression. No suicidal thoughts. No homicidal thoughts. SKIN: Intact, no open lesions. PAST MEDICAL HISTORY: Hypertension COPD History of lung cancer, left upper nodule, seen by Dr. Tena, hydroelectric systems technician Rheumatoid arthritis Anxiety Depression PAST SURGICAL HISTORY: Left above elbow amputation Cataract surgery PERSONAL HISTORY: , lives with . FAMILY HISTORY: Significant for CHF. MEDICATIONS: (HOME) Sertraline Losartan Hydrocodone Lorazepam Neurontin Symbicort ProAir Spiriva ALLERGIES: NKDA PHYSICAL EXAMINATION: V/S: BP 171/90, respiratory rate 22, heart rate 92, temperature 100.9, saturation 94 on 2L. GENERAL: Ill-appearing male lying in bed. HEENT: Atraumatic, normocephalic. No scleral icterus. Pallor positive. Mucosa dry. NECK: Supple. No JVD, no bruit. No lymphadenopathy. No thyromegaly. HEART: S1, S2 normal. No murmur. No cyanosis or clubbing. No ascites. LUNGS: Basilar crackles, mild wheezing more left upper lobe. ABDOMEN: Soft, nontender. Bowel sounds are active. No CVA tenderness. No rigidity or guarding. EXTREMITIES: No cyanosis, clubbing or pedal edema. Left above elbow amputation. MUSCULOSKELETAL: Normal joints, no swelling. NEUROLOGIC: The patient is awake and alert. SKIN: Intact; no open lesions. LYMPHATIC: No lymph nodes palpable. LABS: White count 9.48, hemoglobin 10.8, hematocrit 32.8, platelet count 239. ABG pH 7.44, pc02 39.1, p02 121. Sodium 137, potassium 4.3, chloride 102, bicarb 25, BUN 19, creatinine 0.79. Influenza negative. ASSESSMENT: 1. COPD EXACERBATION SECONDARY TO LEFT UPPER LOBE PNEUMONIA 2. HISTORY OF LUNG CANCER STATUS POST BIOPSIES, FOLLOWS WITH DR. TENA, PHOTOGRAMMETRIC TECH 3. ANEMIA, STABLE 4. HYPERTENSION 5. DEPRESSION 6. OSTEOARTHRITIS 7. DJD SPINE 8. ANXIETY DISORDER PLAN: 1. Admit the patient to the regular floor. 2. CBC, CMP today and daily. 3. Cardiac enzymes and troponin. 4. Rocephin. 5. Lovenox for DVT prophylaxis. 6. Azithromycin 500 mg p.o. daily at bedtime. TIME SPENT: MORE THAN 70 minutes for admission. MTDD
--- NOTE | 2017-03-29 11:46 | PN ---
DATE OF SERVICE: 03/26/17 SUBJECTIVE: Cough, congestion, shortness of breath. No fever or chills. He has chronic lower back pain. REVIEW OF SYSTEMS: CONSTITUTIONAL: No fever, no chills. HEENT: Normal. ENDOCRINE: No weight gain, no weight loss. CVS: No angina symptoms. No CHF symptoms. No palpitations. No atypical chest pain for CAD. No shortness of breath. No PND, no orthopnea. RESPIRATORY: Cough and congestion. No hemoptysis. GI: No nausea, no vomiting. No abdominal pain. : No hematuria. No polyuria. MUSCULOSKELETAL:. Chronic lower back pain. PSYCHIATRIC: Not anxious. No depression. No suicidal thoughts. No homicidal thoughts. SKIN: Intact. No rash. PHYSICAL EXAMINATION: V/S: BP 90/53, respiratory rate 18, heart rate 66, temperature 97.3, saturation 98. HEENT: Normocephalic, atraumatic. Mucosa dry. Pallor positive. No icterus. NECK: Supple. No JVD, no carotid bruit. No lymphadenopathy. LUNGS: Bilateral entry is decreased. Basilar crackles. Mild wheezing. HEART: S1, S2 normal. No S3. No murmur, gallop or regurgitation. ABDOMEN: Soft, nontender. Bowel sounds active. No rigidity. No rebound or guarding. No CVA tenderness. EXTREMITIES: No clubbing, cyanosis or pedal edema. Left above elbow amputation. MUSCULOSKELETAL: No joint swelling. NEUROLOGIC: Awake, alert, oriented times three. No focal deficit. LYMPHATIC: No lymph nodes palpable. SKIN: Intact. LABS: White count 7.01, hemoglobin 10.2, hematocrit 31.2, platelet count 227. Sodium 136, potassium 5.3, chloride 103, bicarb 25, BUN 20, creatinine 0.79, glucose 136. ASSESSMENT: 1. COPD EXACERBATION SECONDARY TO PNEUMONIA 2. LEFT UPPER LOBE PNEUMONIA 3. HISTORY OF LUNG MASS, BIOPSIED BY DR. TENA, SKIN [place] AND FOLLOWS WITH SAME 4. ANEMIA 5. OSTEOARTHRITIS 6. DJD SPINE 7. ANXIETY DISORDER 8. DEPRESSION 9. LEFT ABOVE ELBOW AMPUTATION PLAN: 1. Continue Rocephin, Azithromycin and Duonebs 2. IV fluids 3. Hold blood pressure medication as blood pressure is lower today TIME SPENT: More than 35 minutes MTDD
--- NOTE | 2017-03-30 08:39 | PN ---
DATE OF SERVICE: 03/27/17 SUBJECTIVE: The patient's blood pressure been on the lower side but the patient is up and about walking and does not complain of dizziness or light headedness. REVIEW OF SYSTEMS: CONSTITUTIONAL: No fever, no chills. HEENT: Normal. ENDOCRINE: No weight gain, no weight loss. CVS: No angina symptoms. No CHF symptoms. No palpitations. No atypical chest pain for CAD. No shortness of breath. No PND, no orthopnea. RESPIRATORY: Coughing is better, no hemoptysis. GI: No nausea, no vomiting. No abdominal pain. : No hematuria. No polyuria. MUSCULOSKELETAL: No joint swelling. PSYCHIATRIC: Not anxious. No depression. No suicidal thoughts. No homicidal thoughts. SKIN: Intact. No rash. PHYSICAL EXAMINATION: V/S: Blood pressure 122/68, respiratory rate 20, heart rate 96, temperature 98.2 , saturation 94 on 2 liters. HEENT: Normocephalic, atraumatic. Mucosa dry. Pallor positive. No icterus. NECK: Supple. No JVD, no carotid bruit. No lymphadenopathy. LUNGS: Bilateral entry is decreased and Mild wheezing on the left than the right side. No rales or rhonchi. HEART: S1, S2 normal. No S3. No murmur, gallop or regurgitation. ABDOMEN: Soft, nontender. Bowel sounds active. No rigidity. No rebound or guarding. No CVA tenderness. EXTREMITIES: No clubbing, cyanosis or pedal edema. MUSCULOSKELETAL: No joint swelling. NEUROLOGIC: Awake, alert, oriented times three. No focal deficit. LYMPHATIC: No lymph nodes palpable. SKIN: Intact. LABS: Sodium 136, potassium 4.6, chloride 104, bicarb 25, BUN 33, creatinine 0.75, WBC 15.20, hgb 9.6. hct 29.4 and plt count 265. ASSESSMENT: 1. COPD exacerbation secondary to the left upper lobe pneumonia 2. History of lung cancer 3. Anemia, iron deficiency type PLAN: 1. Continue fluids 2. Solu-Medrol 3. DUO NEBS 4. Lovenox for the DVT Prophylaxis 5. Rocephin and Azithromycin TIME SPENT: More than 35 minutes MTDD
--- NOTE | 2017-03-30 13:56 | PN ---
DATE OF SERVICE: 03/26/17 SUBJECTIVE: The patient is still coughing, congested, short of breath with no fever or chill. Has chronic lower back pain. REVIEW OF SYSTEMS: CONSTITUTIONAL: No fever, no chills. HEENT: Normal. ENDOCRINE: No weight gain, no weight loss. CVS: No angina symptoms. No CHF symptoms. No palpitations. No atypical chest pain for CAD. No shortness of breath. No PND, no orthopnea. RESPIRATORY: No cough, no hemoptysis. GI: No nausea, no vomiting. No abdominal pain. : No hematuria. No polyuria. MUSCULOSKELETAL: No joint swelling. PSYCHIATRIC: Not anxious. No depression. No suicidal thoughts. No homicidal thoughts. SKIN: Intact. No rash. PHYSICAL EXAMINATION: V/S: Blood pressure 90/53, respiratory rate 18, heart rate 66 and temperature 97.3 and saturation 98. HEENT: Normocephalic, atraumatic. Mucosa dry. Pallor positive. No icterus. NECK: Supple. No JVD, no carotid bruit. No lymphadenopathy. LUNGS: Bilateral entry is decreased and basilar crackles and mild wheezing. No rales or rhonchi. HEART: S1, S2 normal. No S3. No murmur, gallop or regurgitation. ABDOMEN: Soft, nontender. Bowel sounds active. No rigidity. No rebound or guarding. No CVA tenderness. EXTREMITIES: No clubbing, cyanosis or pedal edema. Left elbow above amputation MUSCULOSKELETAL: No joint swelling. NEUROLOGIC: Awake, alert, oriented times three. No focal deficit. LYMPHATIC: No lymph nodes palpable. SKIN: Intact. LABS: WBC 7.01, hgb 10.2, hct 31.2, plt count 227, sodium 136, potassium 5.3, chloride 103, bicarb 25, BUN 20, creatinine 0.79 and glucose 136. ASSESSMENT: 1. COPD exacerbation secondary to the pneumonia left upper lobe 2. History of lung mass being biopsied by Dr. Quiroz and follows up with [place] doctor 3. Anemia 4. Osteoarthritis 5. DJD spine 6. Anxiety disorder 7. Depression 8. Left elbow above amputation PLAN: 1. Continue Rocephin, Azithromycin and DUO NEBS 2. IV fluids 3. Hold the blood pressure medication, blood pressure is lower today TIME SPENT: More than 35 minutes MTDD
--- NOTE | 2017-04-10 09:57 | DS ---
DATE OF SERVICE: 03/29/17 FINAL DIAGNOSIS: 1. LEFT UPPER LOBE PNEUMONIA 2. COPD EXACERBATION SECONDARY TO PNEUMONIA 3. ANEMIA OF CHRONIC DISEASE 4. HYPERTENSION 5. DEPRESSION/ANXIETY 6. LEFT ABOVE ELBOW AMPUTATION 7. NEUROPATHY 8. LEFT LUNG MASS MOSTLY CANCER SEEN BY [facility] CONSULTANT, DR. TENA BUT THE PATIENT DID NOT HAVE A CHANCE TO GO TO HEMATOLOGY/ONCOLOGY FOR RADIATION AND CHEMOTHERAPY YET. TWO TIMES HE PLANNED TO GO AND TWO TIMES HE ENDED UP AT [facility] WITH PNEUMONIA. 9. 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 NEUROPATHY 12. 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 Tena. MEDICATIONS AT DISCHARGE: Albuterol Symbicort Neurontin Hydrocodone Lorazepam Losartan Sertraline Spiriva NEW PRESCRIPTIONS: Prednisone 10 mg twice a day Omnicef 300 mg twice a day for 5 days DIET INSTRUCTIONS: Cardiac and Healthy ACTIVITY: As much as tolerated SMOKING: Former smoker DISEASE SPECIFIC EDUCATION: Pneumonia Pneumonia vaccination Antibiotic use and diarrhea Lung mass and need for followup with stone gluer, senior mechanical engineer/oncologist for further treatment and definitive treatment. Verbalized understanding. HOSPITAL COURSE: This is a 67-year-old male who came to the emergency room with cough and congestion. He was recently admitted at the hospital for Dr. Pitt as per list on 02/04/17. At that time the patient had a lung mass for which the patient was supposed to go to stone gluer and hematology/oncology as they were planning to do biopsy and further treatment. As the patient had an appointment, the patient started having cough and congestion and came back to the hospital and was admitted now again with left upper lobe pneumonia, COPD exaceration and hypoxemia/anemia. He was started on IV fluids, IV antibiotics and breathing treatment. With the given treatment, the patient was up and about walking. The next day the patient was a little bit short of breath. IV Lasix was given which did help the patient. Chest x-ray showed improvement of the pneumonia. Meanwhile , the patient was up and about walking. Shortness of breath was minimal and at the same time he showed interest in getting established to the [facility] so we made an appointment for him at the [facility] at this time. The patient does have followup with Dr. Tena for possible lung cancer, evaluation and treatment. The patient's is going to take him there. TIME SPENT: MORE THAN 65 MINUTES ROBIN
== END 2017-03-29 10:20 | disposition home or self-care (01) | DRG 194 ==
LOC: ED 17:51 → MEDSURG A 20:33
PROVIDERS: ADMIT Emergency Medicine; ATTEND Emergency Medicine
DX: J18.9 Pneumonia, unspecified organism (principal); J44.1 Chronic obstructive pulmonary disease with (acute) exacerbation; D63.8 Anemia in other chronic diseases classified elsewhere; I10 Essential (primary) hypertension; F41.8 Other specified anxiety disorders; G62.9 Polyneuropathy, unspecified; Z85.118 Personal history of other malignant neoplasm of bronchus and lung; M19.90 Unspecified osteoarthritis, unspecified site; M47.9 Spondylosis, unspecified; Z87.891 Personal history of nicotine dependence; Z89.222 Acquired absence of left upper limb above elbow; M06.9 Rheumatoid arthritis, unspecified
CPT/HCPCS: 36415; 80053; 82550; 82607; 82728; 82746; 82803; 83540; 83550; 83605; 84145; 84484; 85025; 85045; 87040; 87502; 87651; 93005; 93010; 94640; 99223; 99233; 99239; 99284

== ENCOUNTER 2017-04-24 11:23 | Outpatient (CLI) | END 2017-04-24 11:24 | disposition home or self-care (01) | LOC: CAR 11:23 | PROVIDERS: ATTEND Internal Medicine | DX: J44.9 Chronic obstructive pulmonary disease, unspecified (principal); R06.02 Shortness of breath | CPT/HCPCS: 94761 ==

== ENCOUNTER 2017-05-15 12:10 | Outpatient (CLI) | END 2017-05-15 12:11 | disposition home or self-care (01) | LOC: LAB 12:10 | PROVIDERS: ATTEND Internal Medicine Pulmonary Disease | DX: R91.1 Solitary pulmonary nodule (principal) | CPT/HCPCS: 36415 ==

== ENCOUNTER 2017-10-08 16:25 | Inpatient (IN) | payer OTHER ==
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
[2017-10-08] MEDS ORDERED: DUONEB NEB STA (17:29)
[2017-10-08] MEDS ORDERED: SODIUM CHLORIDE 500 ML IV STA (17:31)
--- NOTE | 2017-10-08 18:53 | CT ---
EXAM: CT chest with contrast HISTORY: Fever, chest pain, lung cancer TECHNIQUE: Multi-slice transaxial helical with coronal and sagittal reformed images CONTRAST: Intravenous COMPARISON: CT chest from 03/25/2017 FINDINGS: The ascending thoracic aorta is ectatic to 37.7 mm. Aortic arch and descending thoracic ao rta have normal caliber. Aortic valve leaflet calcifications are noted. The heart size is normal. No pericardial or left pleural fluid are detected. A trace right pleural effusion layers dependently . Calcified mediastinal lymph nodes are detected. No suspicious lymphadenopathy is detected. The l ungs are severely emphysematous. There is consolidation in the right upper lobe and there additional interstitial opacities in the right lower lobe and middle lobe. There is a small spiculated nodule in the left upper lobe measuring 9.3 x 7.4 mm on transaxial image 25. This may be a part of pulmonar y parenchymal scarring in this region. A calcified granuloma is detected in the left lower lobe. The solid abdominal organs are normal their visualized portions of the upper abdomen. The gallbladde r is present without biliary dilatation. The bones are free of suspicious osteolytic or osteoblastic lesions. IMPRESSION: 1. Multifocal pneumonia in the right lung with trace right pleural effusion. 2. Ectasia of the ascending thoracic aorta to 37.7 mm. 3. Speculated nodule in the left upper lobe measuring 9.3 x 7.4 mm. Note, this could reflect pulmon maryam parenchymal scarring but followup is recommended. Please see followup recommendations below. 4. Emphysema. Comment: [employer] Society Recommendations on Incidental Solid Pulmonary Nodule Follow-up: Low risk patient: (no history of smoking, cancer, or other known risk factors) < 6mm - no follow-up needed > 6-8mm - inital at 6-12 months, then 18-24 months if no change > 8mm - Consider CT, PET/CT, or biopsy at 3 months High risk patient: (history of smoking or other risk factors) < 6mm - optional CT at 12 months if suspicious morophology or upper lobe location > 6-8mm - initial CT at 6-12 months, then CT at 18-24 months > 8mm - same as low risk
[2017-10-08] MEDS ORDERED: ZOSYN 3.375 GM 3.375 GM in SODIUM CHLORIDE 50 ML IV STA (19:13)
[2017-10-08] MEDS ORDERED: SOLU-MEDROL 125 MG IVP STA (19:18)
[2017-10-08] MEDS ORDERED: LEVAQUIN 750 MG in PREMIX 150 ML D5W 1 BAG IV STA ×2 (19:24→19:26)
[2017-10-08] MEDS ORDERED: LEVAQUIN 500 MG in PREMIX 100 ML WATER 1 BAG IV SCH (19:30)
[2017-10-08] MEDS ORDERED: TYLENOL PO PRN (19:31)
[2017-10-08] MEDS ORDERED: LEVAQUIN 150 ML IV ONE (19:31)
[2017-10-08 21:56] VITALS: BMI 20.5
[2017-10-08] MEDS ORDERED: PROAIR HFA IH PRN (22:18)
[2017-10-08] MEDS: ATIVAN PO SCH (23:10)
[2017-10-08] MEDS: NORCO 10-325 PO SCH (23:10)
[2017-10-08] MEDS: NEURONTIN PO SCH (23:10)
[2017-10-08] MEDS: ZOSYN 4.5 GM 4.5 GM in SODIUM CHLORIDE 50 ML IV SCH (23:16)
[2017-10-08] MEDS ORDERED: SODIUM CHLORIDE 500 ML IV SCH (23:30)
[2017-10-08] MEDS: SODIUM CHLORIDE 1,000 ML IV SCH (23:31)
[2017-10-09] MEDS: ZOSYN 4.5 GM 4.5 GM in SODIUM CHLORIDE 50 ML IV SCH ×5 (01:12→23:17)
[2017-10-09] MEDS: DUONEB NEB SCH ×4 (05:02→20:35)
[2017-10-09] MEDS: SYMBICORT 160-4.5 MCG INHALER IH SCH ×2 (08:50→20:25)
[2017-10-09] MEDS: SPIRIVA IH SCH (08:51)
[2017-10-09] MEDS: NEURONTIN PO SCH ×3 (08:52→20:25)
[2017-10-09] MEDS: SOLU-CORTEF 100 MG IVP SCH ×2 (08:52→20:25)
[2017-10-09] MEDS: ZOLOFT PO SCH (08:52)
[2017-10-09] MEDS: CALMOSEPTINE OINTMENT TP SCH ×2 (08:53→20:27)
[2017-10-09] MEDS: ATIVAN PO SCH ×3 (08:53→20:25)
[2017-10-09] MEDS: NORCO 10-325 PO SCH ×3 (08:54→20:25)
[2017-10-09] MEDS: SODIUM CHLORIDE 1,000 ML IV SCH (08:57)
[2017-10-09] MEDS ORDERED: CALMOSEPTINE OINTMENT TP SCH (09:00)
[2017-10-09] MEDS ORDERED: NON-FORMULARY MEDICATION (Sertraline Hcl [Sertraline Hcl] 100 MG) PO SCH (09:00)
[2017-10-09] MEDS ORDERED: COZAAR PO SCH (09:00)
--- NOTE | 2017-10-09 09:26 | PCM.PROG ---
Attending Provider: ATTENDING PROVIDER: Dr. VINNY PITT This patient is seen with Rachael Oliver, Nurse Practitioner. DATE OF SERVICE: 10/09/17 SUBJECTIVE: This 67 year old WHITE/ M was hospitalized 10/08/17. The patient is lying in bed, alert. He has had no fever since admission. He is currently being treated for lung cancer. He sees Dr. Quiroz, Pulmonology as well as Dr. Smith and Dr. Ferguson. REVIEW OF SYSTEMS: CONSTITUTIONAL: Positive for weakness and fever. No night sweats. No malaise, lethargy. . HEENT: Eyes: No visual changes. No eye pain. No eye discharge. ENT: No runny nose. No epistaxis. No sinus pain. No odynophagia. No congestion. RESPIRATORY: Pleuritic pain. No cough, no congestion. No hemoptysis. No shortness of breath. CARDIOVASCULAR: No angina symptoms. No CHF symptoms. No atypical chest pain for CAD. No palpitations. No orthopnea.. GASTROINTESTINAL: No abdominal pain. No nausea or vomiting. No diarrhea or constipation. No hematemesis. No hematochezia. GENITOURINARY: No urgency. No frequency. No dysuria. No hematuria. No obstructive symptoms. No discharge. No pain. No significant abnormal bleeding. MUSCULOSKELETAL: No musculoskeletal pain; no joint swelling. NEUROLOGICAL: Awake, alert, oriented to time, place and person. No headache. No neck pain. No syncope. No seizures. No dizziness. PSYCHIATRIC: Not anxious. No depression. No suicidal thoughts. No homicidal thoughts. SKIN: No rash. No lesions. No wounds. ENDOCRINE: No unexplained weight loss. No weight gain. HEMATOLOGIC/LYMPHATIC: No anemia. No purpura. No petechiae. No prolonged or excessive bleeding. No palpable lymph nodes. PHYSICAL EXAMINATION: GENERAL: The patient is awake, alert and oriented, lying in bed in no distress. VITAL SIGNS: Temperature 97.4 F, Pulse 57, Respiratory Rate 12, BP 100/55, Pulse Ox 98% HEENT: Head normocephalic, atraumatic. Eyes: Extraocular muscles are intact. Pupils are equal, round and reactive to light and accommodation. Ears: No lesions. Nose appeared normal. Throat: No exudate or erythema. NECK: Supple. No JVD, no carotid bruit. No lymphadenopathy or thyromegaly. LUNGS: Severely diminished breath sounds, greater on the right. Clear to auscultation. Percussion note normal. Chest symmetrical. HEART: S1, S2, no S3. No murmurs. No cyanosis or clubbing. No ascites. Pulses: Dorsalis pedis and posterior tibial pulses +1 to +2 both sides. ABDOMEN: Soft. Non-tender. Bowel sounds active. No CVA tenderness. No mass felt. EXTREMITIES: No edema. Full range of motion of all extremities, equal. NEUROLOGIC: No focal deficit. Cranial nerves II through XII are grossly intact. No headache, no double vision or headache. SKIN: Not dry. Intact. Turgor-normal. LYMPHATIC: No palpable lymph nodes/no lymphedema. MUSCULOSKELETAL: Normal joints with no swelling. Muscle tone is normal. LAB REVIEW: 10/09/17 04:55 10/09/17 04:55 10/09/17 04:55: Sodium 132 L, Potassium 5.0, Chloride 98, Carbon Dioxide 26, Anion Gap 13.0, BUN 18, Creatinine 0.81, Estimated GFR (MDRD) 95.00, BUN/ Creatinine Ratio 22.22, Glucose 146 H, Calcium 8.7, Total Bilirubin 0.4, AST 12 L, ALT 9 L, Alkaline Phosphatase 50 L, Total Protein 6.3, Albumin 2.4 L, Globulin 3.9, Albumin/Globulin Ratio 0.62 10/09/17 04:55: WBC 3.29 L, RBC 3.36 L, Hgb 9.8 L, Hct 30.3 L, MCV 90.2, MCH 29.2, MCHC 32.3, RDW Coeff of Dominique 13.2, Plt Count 207, Immature Gran % (Auto) 0.3, Neut % (Auto) 84.5, Lymph % (Auto) 13.1, [place] % (Auto) 2.1, Eos % (Auto) 0.0, Baso % (Auto) 0.0, Immature Gran # (Auto) 0.0, Neut # (Auto) 2.8, Lymph # ( Auto) 0.4 L, [place] # (Auto) 0.1 L, Eos # (Auto) 0.0, Baso # (Auto) 0.0 10/09/17 04:00: Puncture Site Rb, O2 Saturation 98.0, ABG pH 7.349 L, ABG pCO2 47.0 H, ABG pO2 108.0 H, ABG HCO3 25.9, ABG Total CO2 27, ABG Base Excess 0, George Test +, O2 Delivery Device Bnc, Oxygen Liter Flow 2.00, FiO2 % 28.0 10/08/17 17:40: Lactic Acid 6.4 10/08/17 17:40: Procalcitonin 0.09 10/08/17 17:40: WBC 7.46, RBC 3.33 L, Hgb 9.8 L, Hct 30.1 L, MCV 90.4, MCH 29.4 , MCHC 32.6, RDW Coeff of Dominique 13.3, Plt Count 211, Immature Gran % (Auto) 0.3, Neut % (Auto) 70.1, Lymph % (Auto) 12.7, [place] % (Auto) 14.9 H, Eos % (Auto) 1.9 , Baso % (Auto) 0.1, Immature Gran # (Auto) 0.0, Neut # (Auto) 5.2, Lymph # ( Auto) 1.0, [place] # (Auto) 1.1, Eos # (Auto) 0.1, Baso # (Auto) 0.0 10/08/17 17:40: Sodium 131 L, Potassium 4.6, Chloride 96 L, Carbon Dioxide 26, Anion Gap 13.6, BUN 19 H, Creatinine 0.81, Estimated GFR (MDRD) 95.00, BUN/ Creatinine Ratio 23.45, Glucose 114, Calcium 9.0, Total Bilirubin 0.5, AST 13 L , ALT 9 L, Alkaline Phosphatase 54 L, Total Protein 7.0, Albumin 2.7 L, Globulin 4.3, Albumin/Globulin Ratio 0.63 10/08/17 17:25: Puncture Site Rb, O2 Saturation 98.0, ABG pH 7.448, ABG pCO2 38.5, ABG pO2 109.0 H, ABG HCO3 26.6 H, ABG Total CO2 28, ABG Base Excess 3 H, O2 Delivery Device Nc, Oxygen Liter Flow 3.00 ASSESSMENT: 1. Multifocal right lobe pneumonia. 2. Malignant mass left upper lobe - has had both chemotherapy and radiation. 3. Hypotension. 4. Anemia. PLAN: 1. Solu-Cortef 100 mg IV q.12hr 2. Continue IV fluids Plan and coordination of the patient's care discussed in the presence of Last Turner and nurse. CONDITION: Stable SCRIBED BY: PHOEBE BLUE Culture Manager scribed while in presence of service performed by Dr. Pitt/Rachael Oliver APRN on 10/09/17 ([id number])
[2017-10-10] MEDS: SODIUM CHLORIDE 1,000 ML IV SCH (03:56)
[2017-10-10] MEDS: DUONEB NEB SCH ×3 (05:05→14:04)
[2017-10-10] MEDS: ZOSYN 4.5 GM 4.5 GM in SODIUM CHLORIDE 50 ML IV SCH ×4 (05:40→23:28)
[2017-10-10] MEDS: SYMBICORT 160-4.5 MCG INHALER IH SCH ×2 (08:23→20:02)
[2017-10-10] MEDS: SPIRIVA IH SCH (08:23)
[2017-10-10] MEDS: NORCO 10-325 PO SCH ×3 (08:25→20:02)
[2017-10-10] MEDS: COZAAR PO SCH (08:25)
[2017-10-10] MEDS: ZOLOFT PO SCH (08:25)
[2017-10-10] MEDS: NEURONTIN PO SCH ×3 (08:25→20:02)
[2017-10-10] MEDS: ATIVAN PO SCH ×3 (08:25→20:02)
[2017-10-10] MEDS: CALMOSEPTINE OINTMENT TP SCH ×2 (08:26→20:02)
[2017-10-10] MEDS: SOLU-CORTEF 100 MG IVP SCH ×2 (08:29→20:05)
--- NOTE | 2017-10-10 13:14 | PCM.PROG ---
Attending Provider: ATTENDING PROVIDER: Dr. VINNY HUYNH This patient is seen with Rachael Oliver, Nurse Practitioner. DATE OF SERVICE: 10/10/17 SUBJECTIVE: This 67 year old WHITE/ M was hospitalized 10/08/17. Sitting up in bed , resting comfortably. Sputum positive for gram negative rods. Afebrile for the past 24 hours. He has been eating well. He is still weak with a very congested cough. REVIEW OF SYSTEMS: CONSTITUTIONAL: Weakness. No night sweats. No malaise, lethargy. No fever or chills. HEENT: Eyes: No visual changes. No eye pain. No eye discharge. ENT: No runny nose. No epistaxis. No sinus pain. No odynophagia. No congestion. RESPIRATORY: Cough and congestion. No hemoptysis. No shortness of breath. CARDIOVASCULAR: No angina symptoms. No CHF symptoms. No atypical chest pain for CAD. No palpitations. No orthopnea.. GASTROINTESTINAL: No abdominal pain. No nausea or vomiting. No diarrhea or constipation. No hematemesis. No hematochezia. GENITOURINARY: No urgency. No frequency. No dysuria. No hematuria. No obstructive symptoms. No discharge. No pain. No significant abnormal bleeding. MUSCULOSKELETAL: No musculoskeletal pain; no joint swelling. NEUROLOGICAL: Awake, alert, oriented to time, place and person. No headache. No neck pain. No syncope. No seizures. No dizziness. PSYCHIATRIC: Not anxious. No depression. No suicidal thoughts. No homicidal thoughts. SKIN: No rash. No lesions. No wounds. ENDOCRINE: No unexplained weight loss. No weight gain. HEMATOLOGIC/LYMPHATIC: No anemia. No purpura. No petechiae. No prolonged or excessive bleeding. No palpable lymph nodes. PHYSICAL EXAMINATION: GENERAL: The patient is awake, alert and oriented, lying in bed in no distress. VITAL SIGNS: Temperature 97.6 F, Pulse 64, Respiratory Rate 20, BP 107/58, Pulse Ox 97% HEENT: Head normocephalic, atraumatic. Eyes: Extraocular muscles are intact. Pupils are equal, round and reactive to light and accommodation. Ears: No lesions. Nose appeared normal. Throat: No exudate or erythema. NECK: Supple. No JVD, no carotid bruit. No lymphadenopathy or thyromegaly. LUNGS: Diminished breath sounds bilaterally with crackles on the right. Percussion note normal. Chest symmetrical. HEART: S1, S2, no S3. No murmurs. No cyanosis or clubbing. No ascites. Pulses: Dorsalis pedis and posterior tibial pulses +1 to +2 both sides. ABDOMEN: Soft. Non-tender. Bowel sounds active. No CVA tenderness. No mass felt. EXTREMITIES: No edema. Full range of motion of all extremities, equal. NEUROLOGIC: No focal deficit. Cranial nerves II through XII are grossly intact. No headache, no double vision or headache. SKIN: Not dry. Intact. Turgor-normal. LYMPHATIC: No palpable lymph nodes/no lymphedema. MUSCULOSKELETAL: Normal joints with no swelling. Muscle tone is normal. LAB REVIEW: 10/10/17 04:15 10/10/17 04:15 10/10/17 04:15: Sodium 131 L, Potassium 4.2, Chloride 101, Carbon Dioxide 24, Anion Gap 10.2, BUN 22 H, Creatinine 0.78, Estimated GFR (MDRD) 99.00, BUN/ Creatinine Ratio 28.20, Glucose 160 H, Calcium 8.4, Total Bilirubin 0.2, AST 15 , ALT 10 L, Alkaline Phosphatase 50 L, Total Protein 5.5 L, Albumin 2.2 L, Globulin 3.3, Albumin/Globulin Ratio 0.67 10/10/17 04:15: WBC 13.82 H D, RBC 2.94 L, Hgb 8.7 L, Hct 26.2 L, MCV 89.1, MCH 29.6, MCHC 33.2, RDW Coeff of Dominique 13.2, Plt Count 229, Immature Gran % (Auto) 0.4, Neut % (Auto) 89.3, Lymph % (Auto) 3.6 L, [place] % (Auto) 6.7, Eos % (Auto) 0.0, Baso % (Auto) 0.0, Immature Gran # (Auto) 0.1, Neut # (Auto) 12.4 H, Lymph # (Auto) 0.5 L, [place] # (Auto) 0.9, Eos # (Auto) 0.0, Baso # (Auto) 0.0 ASSESSMENT: 1. Multifocal right lobe pneumonia. 2. Malignant mass left upper lobe - has had both chemotherapy and radiation. 3. Hypotension. 4. Anemia. PLAN: 1. Decrease Cozaar 50 mg 2. Stop IV fluids 3. Repeat chest x-ray in a.m. Plan and coordination of the patient's care discussed in the presence of Plastic Sheets Supervisor and nurse. CONDITION: Stable SCRIBED BY: PHOEBE BLUE It Technical Specialist scribed while in presence of service performed by Dr. Huynh/Rachael Oliver APRN on 10/10/17 ([id number])
--- NOTE | 2017-10-10 14:19 | HP ---
DATE OF SERVICE: 10/09/17 (ADMITTED 10/08/17) HISTORY OF PRESENT ILLNESS: This is a 67-year-old white male who presented to the emergency room after having fever over 101 for the past three days. He has been taking Ibuprofen. He has a long history of smoking. He does have left upper lobe lung cancer and has received four doses of radiation. 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 Positive for weakness. No night sweats. No malaise, lethargy. HEENT: Eyes: No visual changes. No eye pain. No eye discharge. ENT: No runny nose. No epistaxis. No sinus pain. No sore throat. No odynophagia. No ear pain. No congestion. RESPIRATORY: Positive for cough. No congestion. No hemoptysis. No shortness of breath. CARDIOVASCULAR: No angina symptoms. No CHF symptoms. No atypical chest pain for CAD. No palpitations. No PND. No orthopnea. GASTROINTESTINAL: No abdominal pain. No nausea or vomiting. No diarrhea or constipation. No hematemesis. No hematochezia. GENITOURINARY: No urgency. No frequency. No dysuria. No hematuria. No obstructive symptoms. No discharge. No pain. No significant abnormal bleeding. MUSCULOSKELETAL: No musculoskeletal pain. No joint swelling. No arthritis. NEUROLOGICAL: No headache. No neck pain. No syncope. No seizures. No dizziness. PSYCHIATRIC: Not anxious. No depression. No suicidal thoughts. No homicidal thoughts. SKIN: No rash. No lesions. No wounds. ENDOCRINE: No unexplained weight loss. No weight gain. HEMATOLOGIC/LYMPHATIC: No anemia. No purpura. No petechiae. No prolonged or excessive bleeding. No palpable lymph nodes. PERSONAL/FAMILY/SOCIAL HISTORY: He resides with his . He is a former smoker. No alcohol or illicit drug use. MEDICATIONS: (prior to admission) Sertraline 100 mg p.o. daily Losartan 100 mg p.o. daily Hydrocodone/Acetaminophen one tab p.o. t.i.d. Lorazepam 0.5 mg p.o. t.i.d. Neurontin 100 mg p.o. t.i.d. Budesonide/Formoterol Fumarate one puff INH b.i.d. Albuterol (ProAir Hfa) 2 puff INH b.i.d. p.r.n. Spiriva one cap IH daily ALLERGIES: NKDA PHYSICAL EXAMINATION: VITAL SIGNS: Temperature 101.3, heart rate 101, respirations 22, BP 118/70, pulse ox 88%. HEENT: Head normocephalic, atraumatic. Eyes: Extraocular muscles are intact. Pupils are equal, round and reactive to light and accommodation. Ears: No lesions. Nose appeared normal. Throat: No exudate or erythema. Pale and weak. NECK: Supple. No JVD, no carotid bruit. No lymphadenopathy or thyromegaly. LUNGS: Severely diminished breath sounds bilaterally, crackles on the right. Percussion note normal. Chest symmetrical. HEART: S1, S2, no S3. No murmurs. No cyanosis or clubbing. No ascites. Pulses: Dorsalis pedis and posterior tibial pulses +1 to +2 bilaterally. ABDOMEN: Soft. Nontender. Bowel sounds active. No CVA tenderness. No mass felt. EXTREMITIES: Amputated left upper extremity. No edema. Full range of motion of all extremities, equal. NEUROLOGIC: No focal deficit. Cranial nerves II through XII are grossly intact. No headache, no double vision or headache. SKIN: Not dry. Intact. Turgor - normal. LYMPHATIC: No palpable lymph nodes/no lymphedema. MUSCULOSKELETAL: Normal joints with no swelling. Muscle tone is normal. White count 7.46, hemoglobin 9.8 and hematocrit 30.1, platelets 211. Sodium 131 , potassium 4.6, BUN 19, creatinine 0.81, glucose 114. ABGs on 3L via nasal cannula 02 sat 98, pH 7.44, pc02 38, p02 109, bicarb 26.6, total c02 28. Initially his 02 sat on admission was 88% on room air. AST 13, ALT 9, Alkaline phosphatase 54. CT scan showed multifocal right lobe pneumonia along with showing the cancer in the left upper lobe which he has had. ASSESSMENT: 1. RIGHT LOBE PNEUMONIA, MULTIFOCAL 2. LEFT UPPER LOBE CANCER, HAS UNDERGONE RADIATION, SEES DR. DICKEY AND DR. ORTEGA 3. COPD 4. DEHYDRATION 5. HYPERTENSION 6. DEPRESSION 7. NEUROPATHY 8. SEVERE DEGENERATIVE JOINT DISEASE PLAN: 1. We will admit, place on IV fluids, NS at 75 cc/hr 2. CBC, CMP daily 3. Routine telemetry orders 4. Zosyn IV 5. Xopenex neb treatments q.6hr 6. Oxygen from 1 to 3L as needed 7. Will start on Solu-Cortef 100 mg IV q.12hr 8. Continue home medications 9. Tylenol 650 q.4hr as needed for fever 10. Toradol 30 mg IV q.8hr as needed for pain 11. Will follow closely TIME SPENT: More than 70 minutes. MTDD
[2017-10-11] MEDS: DUONEB NEB SCH ×5 (00:36→21:35)
[2017-10-11] MEDS: ZOSYN 4.5 GM 4.5 GM in SODIUM CHLORIDE 50 ML IV SCH (05:35)
--- NOTE | 2017-10-11 08:36 | PN ---
DATE OF SERVICE: 10/09/17 SUBJECTIVE: The patient was hospitalized with pneumonia. The patient has been treated with IV antibiotics, steroids and NEBS treatment. The patient is feeling a lot better and sitting up. is in the room. The patient is eating and coughing much less. Hydration status has improved, condition has improved. Counseling for smoking done. The patient was seen and examined with Nurse Practitioner. TIME SPENT: More than 30 minutes. Plan and coordination of the patient's care discussed in the presence of nurse. ROBIN
--- NOTE | 2017-10-11 08:57 | PN ---
DATE OF SERVICE: 10/08/17 ADMIT NOTE SUBJECTIVE: The patient was seen and examined in the emergency room. The patient was brought to the emergency room with cough, congestion and patient has history of C of the lung, heavy smoker. The patient on CT scan has pneumonia. The patient is going to be hospitalized and treated with Zosyn and Levaquin. Counseling for smoking done. CONDITION: Stable. TIME SPENT: More than 30 minutes. Plan and coordination of the patient's care discussed in the presence of nurse. ROBIN
[2017-10-11] MEDS: SYMBICORT 160-4.5 MCG INHALER IH SCH ×2 (09:05→20:07)
[2017-10-11] MEDS: SPIRIVA IH SCH (09:06)
[2017-10-11] MEDS: COZAAR PO SCH (09:08)
[2017-10-11] MEDS: NORCO 10-325 PO SCH ×3 (09:08→20:06)
[2017-10-11] MEDS: ZOLOFT PO SCH (09:09)
[2017-10-11] MEDS: CALMOSEPTINE OINTMENT TP SCH ×2 (09:09→20:09)
[2017-10-11] MEDS: ATIVAN PO SCH ×3 (09:09→20:06)
[2017-10-11] MEDS: NEURONTIN PO SCH ×3 (09:09→20:06)
[2017-10-11] MEDS: SOLU-CORTEF 100 MG IVP SCH ×2 (09:10→20:06)
--- NOTE | 2017-10-11 09:38 | PCM.PROG ---
Attending Provider: ATTENDING PROVIDER: Dr. VINNY HUYNH DATE OF SERVICE: 10/11/17 SUBJECTIVE: This 67 year old WHITE/ M was hospitalized 10/08/17 with pneumonia, history of lung cancer. Sputum culture grew Enterococcus Cloacae being treated with antibiotics and nebs. The patient is feeling better. He is oriented times three. REVIEW OF SYSTEMS: CONSTITUTIONAL: No night sweats. No fatigue, malaise, lethargy. No fever or chills. HEENT: Eyes: No visual changes. No eye pain. No eye discharge. ENT: No runny nose. No epistaxis. No sinus pain. No odynophagia. No congestion. RESPIRATORY: Cough with wheeze. No hemoptysis. No shortness of breath. CARDIOVASCULAR: No angina symptoms. No CHF symptoms. No atypical chest pain for CAD. No palpitations. No orthopnea.. GASTROINTESTINAL: No abdominal pain. No nausea or vomiting. No diarrhea or constipation. No hematemesis. No hematochezia. GENITOURINARY: No urgency. No frequency. No dysuria. No hematuria. No obstructive symptoms. No discharge. No pain. No significant abnormal bleeding. MUSCULOSKELETAL: No musculoskeletal pain; no joint swelling. NEUROLOGICAL: Awake, alert, oriented to time, place and person. No headache. No neck pain. No syncope. No seizures. No dizziness. PSYCHIATRIC: Not anxious. No depression. No suicidal thoughts. No homicidal thoughts. SKIN: No rash. No lesions. No wounds. ENDOCRINE: No unexplained weight loss. No weight gain. HEMATOLOGIC/LYMPHATIC: No anemia. No purpura. No petechiae. No prolonged or excessive bleeding. No palpable lymph nodes. PHYSICAL EXAMINATION: GENERAL: The patient is awake, alert and oriented, lying in bed in no distress. VITAL SIGNS: Temperature 97.5 F, Pulse 80, Respiratory Rate 18, BP 145/75, Pulse Ox 97% HEENT: Head normocephalic, atraumatic. Eyes: Extraocular muscles are intact. Pupils are equal, round and reactive to light and accommodation. Ears: No lesions. Nose appeared normal. Throat: No exudate or erythema. NECK: Supple. No JVD, no carotid bruit. No lymphadenopathy or thyromegaly. LUNGS: Mild expiratory wheeze. Percussion note normal. Chest symmetrical. HEART: S1, S2, no S3. No murmurs. No cyanosis or clubbing. No ascites. Pulses: Dorsalis pedis and posterior tibial pulses +1 to +2 both sides. ABDOMEN: Soft. Non-tender. Bowel sounds active. No CVA tenderness. No mass felt. EXTREMITIES: No edema. Full range of motion of all extremities, equal. NEUROLOGIC: No focal deficit. Cranial nerves II through XII are grossly intact. No headache, no double vision or headache. SKIN: Warm and dry. Intact. Turgor-normal. LYMPHATIC: No palpable lymph nodes/no lymphedema. MUSCULOSKELETAL: Normal joints with no swelling. Muscle tone is normal. LAB REVIEW: 10/11/17 06:25 10/11/17 06:25 10/11/17 06:25: Sodium 133 L, Potassium 4.1, Chloride 100, Carbon Dioxide 27, Anion Gap 10.1, BUN 16, Creatinine 0.72, Estimated GFR (MDRD) 109.00, BUN/ Creatinine Ratio 22.22, Glucose 121 H, Calcium 8.5, Total Bilirubin 0.2, AST 19 , ALT 13, Alkaline Phosphatase 44 L, Total Protein 5.5 L, Albumin 2.2 L, Globulin 3.3, Albumin/Globulin Ratio 0.67 10/11/17 06:25: WBC 9.90, RBC 3.05 L, Hgb 8.9 L, Hct 27.0 L, MCV 88.5, MCH 29.2 , MCHC 33.0, RDW Coeff of Dominique 13.5, Plt Count 255, Immature Gran % (Auto) 0.4, Neut % (Auto) 84.3, Lymph % (Auto) 9.1 L, [place] % (Auto) 6.2, Eos % (Auto) 0.0, Baso % (Auto) 0.0, Immature Gran # (Auto) 0.0, Neut # (Auto) 8.4 H, Lymph # ( Auto) 0.9, [place] # (Auto) 0.6, Eos # (Auto) 0.0, Baso # (Auto) 0.0 ASSESSMENT: 1. ACUTE PNEUMONITIS/BRONCHITIS SEEMS TO BE RESOLVING. PLAN: 1. Continue steroids, antibiotics and nebs. 2. Regular diet. 3. D/C IV fluids. 4. Up and about. 5. Repeat chest x-ray today. Plan and coordination of the patient's care discussed in the presence of Batter Mixer Helper and nurse. CONDITION: Stable SCRIBED BY: PHOEBE BLUE Body Straightener scribed while in presence of service performed by Dr. VINNY HUYNH on 10/11/17 ([id number])
[2017-10-11] MEDS: ZOSYN 4.5 GM 4.5 GM in SODIUM CHLORIDE 100 ML IV SCH ×2 (12:19→17:41)
--- NOTE | 2017-10-11 12:23 | DI ---
EXAM: Two views of the chest. History: Follow-up pneumonia Comparison: Chest radiograph 03/28/2017, chest CT 10/08/2017 Findings: Heart size is within normal limits. Emphysema. Persistent but probably slightly improvin g right apical consolidation. No appreciable pleural fluid and no pneumothorax. No acute osseous ab normalities. Atherosclerotic vascular calcifications. Impression: Persistent but slightly improving right apical consolidation. Continued follow-up recom mended.
[2017-10-12] MEDS: ZOSYN 4.5 GM 4.5 GM in SODIUM CHLORIDE 100 ML IV SCH ×3 (00:25→13:02)
[2017-10-12] MEDS: DUONEB NEB SCH ×2 (05:00→10:15)
--- NOTE | 2017-10-12 08:59 | PCM.PROG ---
Attending Provider: ATTENDING PROVIDER: Dr. VINNY HUYNH This patient is seen with Rachael Oliver, Nurse Practitioner. DATE OF SERVICE: 10/12/17 SUBJECTIVE: This 67 year old WHITE/ M was hospitalized 10/08/17. The patient is sitting in the chair, alert. He states he is ready to go home. He is feeling better. Cough improved. He has more energy, has been eating well. He would like to go home. REVIEW OF SYSTEMS: CONSTITUTIONAL: No night sweats. No fatigue, malaise, lethargy. No fever or chills. HEENT: Eyes: No visual changes. No eye pain. No eye discharge. ENT: No runny nose. No epistaxis. No sinus pain. No odynophagia. No congestion. RESPIRATORY: Cough with wheeze. No hemoptysis. No shortness of breath. CARDIOVASCULAR: No angina symptoms. No CHF symptoms. No atypical chest pain for CAD. No palpitations. No orthopnea.. GASTROINTESTINAL: No abdominal pain. No nausea or vomiting. No diarrhea or constipation. No hematemesis. No hematochezia. GENITOURINARY: No urgency. No frequency. No dysuria. No hematuria. No obstructive symptoms. No discharge. No pain. No significant abnormal bleeding. MUSCULOSKELETAL: No musculoskeletal pain; no joint swelling. NEUROLOGICAL: Awake, alert, oriented to time, place and person. No headache. No neck pain. No syncope. No seizures. No dizziness. PSYCHIATRIC: Not anxious. No depression. No suicidal thoughts. No homicidal thoughts. SKIN: No rash. No lesions. No wounds. ENDOCRINE: No unexplained weight loss. No weight gain. HEMATOLOGIC/LYMPHATIC: No anemia. No purpura. No petechiae. No prolonged or excessive bleeding. No palpable lymph nodes. PHYSICAL EXAMINATION: GENERAL: The patient is awake, alert and oriented, sitting in chair in no distress. VITAL SIGNS: Temperature 97.9 F, Pulse 70, Respiratory Rate 12, BP 135/61, Pulse Ox 93% HEENT: Head normocephalic, atraumatic. Eyes: Extraocular muscles are intact. Pupils are equal, round and reactive to light and accommodation. Ears: No lesions. Nose appeared normal. Throat: No exudate or erythema. NECK: Supple. No JVD, no carotid bruit. No lymphadenopathy or thyromegaly. LUNGS: Diminished breath sounds bilaterally with wheeze on the right. Percussion note normal. Chest symmetrical. HEART: S1, S2, no S3. No murmurs. No cyanosis or clubbing. No ascites. Pulses: Dorsalis pedis and posterior tibial pulses +1 to +2 both sides. ABDOMEN: Soft. Non-tender. Bowel sounds active. No CVA tenderness. No mass felt. EXTREMITIES: No edema. Full range of motion of all extremities, equal. NEUROLOGIC: No focal deficit. Cranial nerves II through XII are grossly intact. No headache, no double vision or headache. SKIN: Not dry. Intact. Turgor-normal. LYMPHATIC: No palpable lymph nodes/no lymphedema. MUSCULOSKELETAL: Normal joints with no swelling. Muscle tone is normal. LAB REVIEW: 10/12/17 04:45 10/12/17 04:45 10/12/17 04:45: Sodium 136, Potassium 4.2, Chloride 105, Carbon Dioxide 24, Anion Gap 11.2, BUN 13, Creatinine 0.73, Estimated GFR (MDRD) 107.00, BUN/ Creatinine Ratio 17.80, Glucose 121 H, Calcium 8.6, Total Bilirubin 0.2, AST 19 , ALT 14, Alkaline Phosphatase 52 L, Total Protein 5.5 L, Albumin 2.3 L, Globulin 3.2, Albumin/Globulin Ratio 0.72 10/12/17 04:45: WBC 7.86, RBC 3.08 L, Hgb 9.1 L, Hct 27.8 L, MCV 90.3, MCH 29.5 , MCHC 32.7, RDW Coeff of Dominique 13.8, Plt Count 253, Immature Gran % (Auto) 0.3, Neut % (Auto) 84.8, Lymph % (Auto) 9.3 L, [place] % (Auto) 5.5, Eos % (Auto) 0.0, Baso % (Auto) 0.1, Immature Gran # (Auto) 0.0, Neut # (Auto) 6.7, Lymph # (Auto ) 0.7, [place] # (Auto) 0.4, Eos # (Auto) 0.0, Baso # (Auto) 0.0 ASSESSMENT: 1. ACUTE PNEUMONITIS/BRONCHITIS SEEMS TO BE RESOLVING. 2. LEFT UPPER LOBE LUNG CANCER. 3. COPD. PLAN: 1. Discharge home. 2. Levaquin 500 mg for 5 more days. 3. Advised to stay inside over the weekend. 4. Prednisone 20 mg b.i.d. times five days. 5. Use Symbicort. 6. Use ProAir t.i.d. 7. Will see the patient in the office next week. Plan and coordination of the patient's care discussed in the presence of Retail Marketing Manager and nurse. CONDITION: Stable SCRIBED BY: PHOEBE BLEU Silica Filter Operator scribed while in presence of service performed by Dr. Huynh/Rachael Oliver APRN on 10/12/17 ([id number])
[2017-10-12] MEDS: NORCO 10-325 PO SCH (09:02)
[2017-10-12] MEDS: NEURONTIN PO SCH (09:02)
[2017-10-12] MEDS: ZOLOFT PO SCH (09:02)
[2017-10-12] MEDS: ATIVAN PO SCH (09:02)
[2017-10-12] MEDS: SPIRIVA IH SCH (09:03)
[2017-10-12] MEDS: SYMBICORT 160-4.5 MCG INHALER IH SCH (09:03)
[2017-10-12] MEDS: COZAAR PO SCH (09:03)
[2017-10-12] MEDS: SOLU-CORTEF 100 MG IVP SCH (09:03)
[2017-10-12 09:32] VITALS: BP 106/58; TEMP 97.5
--- NOTE | 2017-10-12 09:46 | PN ---
DATE OF SERVICE: 10/10/17 SUBJECTIVE: The patient was seen and examined with the nurse practitioner. The patient's condition has improved. Pneumonia seems to be better. He has chronic lung disease with history of CA of the lung. Counseling for smoking done. CONDITION: Stable TIME SPENT: More than 30 minutes. Plan and coordination of the patient's care discussed in the presence of nurse. ROBIN
[2017-10-12] MEDS: CALMOSEPTINE OINTMENT TP SCH (09:56)
--- NOTE | 2017-10-12 11:22 | CM.DICTOOL ---
ADMISSION: 10/08/17 19:36 DISCHARGE: OCTOBER 12, 2017 DATE OF SERVICE: 10/12/17 FINAL DIAGNOSIS PNEUMONIA, MULTIFOCAL RIGHT LUNG PER CHEST CT NODULE, LAN (CANCER) RADIATION (DR. ORTEGA/) EMPHYSEMA HYPERTENSION ANEMIA NEUROPATHY OSTEOARTHRITIS DJD SPINE DEPRESSION ANXIETY LEFT ABOVE THE ELBOW AMPUTATION (TRAUMATIC) HYPONATREMIA, MILD (RESOLVED) FORMER SMOKER LAST VITALS Temp Pulse Resp BP Pulse Ox 97.5 F L 82 12 106/58 L 99 10/12/17 09:31 10/12/17 09:31 10/12/17 09:31 10/12/17 09:31 10/12/17 10:00 TAKE THESE MEDICATIONS AT HOME Hydrocodone Bitart/Acetaminophen ([place] 10-325) 1 tab PO TID COUNTS INCLUDE 234 BEDS AT THE [facility] Last Admin: 10/12/17 09:02 Dose: 1 tab Albuterol Sulfate (Proair Hfa) 2 puff IH TID Last Admin: Budesonide/Formoterol Fumarate (Symbicort 160-4.5 Mcg Inhaler) 1 puff IH BID COUNTS INCLUDE 234 BEDS AT THE [facility] Last Admin: 10/12/17 09:03 Dose: 1 puff Gabapentin (Neurontin) 100 mg PO TID COUNTS INCLUDE 234 BEDS AT THE [facility] Last Admin: 10/12/17 09:02 Dose: 100 mg Lorazepam (Ativan) 0.5 mg PO TID COUNTS INCLUDE 234 BEDS AT THE [facility] Last Admin: 10/12/17 09:02 Dose: 0.5 mg Losartan Potassium (Cozaar) 50 mg PO DAILY COUNTS INCLUDE 234 BEDS AT THE [facility] Last Admin: 10/12/17 09:03 Dose: 50 mg Sertraline HCl (Zoloft) 100 mg PO DAILY COUNTS INCLUDE 234 BEDS AT THE [facility] Last Admin: 10/12/17 09:02 Dose: 100 mg Sodium Chloride (Saline Flush) 1 syr IVF Q8HR COUNTS INCLUDE 234 BEDS AT THE [facility] Last Admin: 10/12/17 06:01 Dose: 1 syr Tiotropium [place] (Spiriva) 1 cap IH DAILY COUNTS INCLUDE 234 BEDS AT THE [facility] Last Admin: 10/12/17 09:03 Dose: 1 cap Levaquin 500 mg PO Daily Last Admin: Prednisone 20 mg PO BID With Meals Last Admin: ALLERGIES No Known Allergies Allergy (Verified 03/25/17 17:55) DISCONTINUED MEDICATIONS Losartan 100 mg PO Daily NEW PRESCRIPTIONS: Levaquin 500 mg PO daily for 5 days Prednisone 20 mg PO BID for 5 days Take with food Losartan 50 mg PO Daily (dose change) SMOKING: Not Applicable DISEASE SPECIFIC EDUCATION: Pneumonia Activity Prescriptions Steroids and risk of GI irritation, bone demineralization LAB REVIEW: 10/12/17 04:45 10/12/17 04:45 10/12/17 04:45: Sodium 136, Potassium 4.2, Chloride 105, Carbon Dioxide 24, Anion Gap 11.2, BUN 13, Creatinine 0.73, Estimated GFR (MDRD) 107.00, BUN/ Creatinine Ratio 17.80, Glucose 121 H, Calcium 8.6, Total Bilirubin 0.2, AST 19 , ALT 14, Alkaline Phosphatase 52 L, Total Protein 5.5 L, Albumin 2.3 L, Globulin 3.2, Albumin/Globulin Ratio 0.72 10/12/17 04:45: WBC 7.86, RBC 3.08 L, Hgb 9.1 L, Hct 27.8 L, MCV 90.3, MCH 29.5 , MCHC 32.7, RDW Coeff of Dominique 13.8, Plt Count 253, Immature Gran % (Auto) 0.3, Neut % (Auto) 84.8, Lymph % (Auto) 9.3 L, [place] % (Auto) 5.5, Eos % (Auto) 0.0, Baso % (Auto) 0.1, Immature Gran # (Auto) 0.0, Neut # (Auto) 6.7, Lymph # (Auto ) 0.7, [place] # (Auto) 0.4, Eos # (Auto) 0.0, Baso # (Auto) 0.0 PLAN: Discharge home Diet: As tolerated, may drink Boost supplements Activity: Gradually resume as tolerated. Avoid outside activity in extreme heat and humidity. Please stay indoors until next week. Continue to use oxygen at 2 liters per nasal cannula at night and for episodes of shortness of air. Use ProAir HFA three times a day until instructed otherwise Reschedule appointment with Dr. Ortega An appointment is scheduled with Dr. Pitt on October 17 at 11 am Full Code Status per patient Mr. Garza is alert and oriented x 3. He is independent with ADL's, but requires minimal assistance with some task due to above the elbow amputation of the left arm. He transfers from the bed to the chair and is ambulatory without use of an assistive device. Appetite is fair with intakes of at least 75% of a diet he has requested with fresh fruit, vegetables, less processed foods, a protein source and a Boost Supplement with meals. Skin is intact, but both sides of the sacrum are pink in color. Bruising is noted above the left arm stump. Mr. Garza has home oxygen in the form of a concentrator and portability for use at night and as needed. Anthony Pitt MD Rachael Oliver APRN
--- NOTE | 2017-10-13 14:58 | PN ---
DATE OF SERVICE: 10/12/17 SUBJECTIVE: The patient was seen and examined with the Nurse Practitioner. The patient's pneumonia seems to have resolved clinically. He is feeling better, appetite has improved. Afebrile. He will be discharged on antibiotics and steroids. Counseling for smoking done. CONDITION: Stable. TIME SPENT: More than 30 minutes. Plan and coordination of the patient's care discussed in the presence of nurse. ROBIN
--- NOTE | 2017-10-13 14:59 | PN ---
10/08/17: Level 5 10/09/17: Intermediate 10/10/17: Intermediate 10/11/17: Intermediate 10/12/17: D as in discharge MTDD
--- NOTE | 2017-10-13 15:51 | DS ---
DATE OF SERVICE: 10/12/17 FINAL DIAGNOSIS: 1. Pneumonia, multifocal right lung per chest CT 2. Nodule, LAN (cancer) radiation (Dr. Smith/Dr. Ferguson) 3. Emphysema 4. Hypertension 5. Anemia 6. Neuropathy 7. Osteoarthritis 8. DJD spine 9. 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 DISCHARGE INSTRUCTIONS: Discharge home. Continue to use oxygen at 2 liters per nasal cannula at night and for episodes of shortness of breath. Use ProAir HFA three times a day until instructed otherwise. Reschedule appointment with Dr. Smith. An appointment is scheduled with Dr. Pitt on October 17 at 11am. Full code status per patient. MEDICATIONS AT DISCHARGE: [place] 10-325 PO three times a day ProAir two puffs IH three times a day Symbicort one puff IH twice a day Neurontin 100mg PO three times a day Ativan 0.5mg PO three times a day Cozaar 50mg PO daily Zoloft 100mg PO daily Sodium Chloride IVF Q 8 hours Spiriva 1 cap IH daily Levaquin 500mg PO daily Prednisone 20mg PO twice a day with meals ALLERGIES: No known allergies DISCONTINUED MEDICATION: Losartan 100mg PO daily NEW PRESCRIPTIONS: Levaquin 500mg PO daily Prednisone 20mg PO twice a day with meal Losartan 50mg PO daily DIET INSTRUCTIONS: As tolerated, may drink Boost supplement ACTIVITY: Gradually resume as tolerated. Avoid outside activity in extreme heat and humidity. Please stay indoors until next week. SMOKING: N/A DISEASE SPECIFIC EDUCATION: Pneumonia Activity Prescriptions Steroids and risk of GI irritation, bone demineralization HOSPITAL COURSE: 67 year old white male with a history of left upper lobe cancer who is followed by Dr. Smith and Dr. Ferguson. He presented to the emergency room with fever, worsening cough and shortness of breath. CT of chest revealed multifocal right lobe pneumonia. He was admitted and placed on Zosyn IV as well as given one dose of Levaquin IV 750mg in the emergency room. Sputum culture was positive for bacteria sensitive to the Zosyn as well as the Levaquin. He was started on Solu-Medrol 100mg IV Q 12 hours, Xopenex NEB treatments Q 6 hours scheduled. He was put on normal saline as his kidney function was slightly increased on admission showing mild dehydration at 60cc an hour. Within 24-36 hours his kidney functions improved. All of his home medications were continued. We did give him Ativan 1mg at night in order to help him sleep. He did become somewhat hypotensive on Monday. Blood pressures are running 90-100 systolic. I did decrease his Cozaar to 50mg from a 100mg. He will be discharged on this new dose. Repeat chest x-ray was done yesterday showing slight improvement in the right sided pneumonia of course with the lung cancer in the left upper lobe. He was scheduled to have repeat CT scan with Dr. Smith whenever he was admitted to the hospital so we will fax that result over to Dr. mSith. He has been up and about. He is has oxygen at home. He has been wearing oxygen PRN here. He is no respiratory distress. Vital signs have been good; temperature 97.5, heart rate 82, respiratory rate 12, blood pressure 106/58 and pulse ox 99% on 1 liter. He is eating 100% of his meals. Up and about. He will go home on Levaquin 500mg daily for the next 5 days along with Prednisone 20mg PO twice a day for the next 5 days. He is instructed to followup with those both Dr. Ferguson and Dr. Jack as planned and he will followup with us early next week. He has an albuterol inhaler and I have instructed him to use three times a day at home. I have instructed him to stay inside until at least Monday. If he has any questions or worsening of symptoms he is instructed to return. He is discharged in stable condition. TIME SPENT: More than 60 minutes. ROBIN
== END 2017-10-12 12:10 | disposition home or self-care (01) | DRG 182 ==
LOC: ED 16:25 → MEDSURG A 19:36
PROVIDERS: ADMIT Internal Medicine; ATTEND Internal Medicine
DX: C34.12 Malignant neoplasm of upper lobe, left bronchus or lung (principal); J44.9 Chronic obstructive pulmonary disease, unspecified; J43.9 Emphysema, unspecified; I10 Essential (primary) hypertension; E86.0 Dehydration; F32.9 Major depressive disorder, single episode, unspecified; G62.9 Polyneuropathy, unspecified; R06.00 Dyspnea, unspecified; R07.9 Chest pain, unspecified; R50.9 Fever, unspecified; R42 Dizziness and giddiness; D64.9 Anemia, unspecified; M19.90 Unspecified osteoarthritis, unspecified site; Z72.0 Tobacco use
CPT/HCPCS: 36415; 80053; 82803; 83605; 84145; 85025; 87040; 87070; 87186; 93005; 93010; 94640; 96361; 96365; 97802; 99284

== ENCOUNTER 2018-01-31 04:12 | Inpatient (IN) | payer OTHER ==
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
--- NOTE | 2018-01-31 05:24 | DI ---
EXAM: Chest, two views, 01/31/2018 HISTORY: Cough. Pneumonia. COMPARISON: 10/08/2017, 10/11/2017 FINDINGS / IMPRESSION: Linear and nodular opacities are present throughout the right pulmonary apex. This extends inferiorly to approximately the level of the hilum. This corresponds to findings on p revious chest CT. The previously described spiculated left upper lobe nodule not well visualized on the current study. Emphysematous changes throughout both lungs. Heart size is stable. No pleural effusion or pneumothorax.
[2018-01-31] MEDS ORDERED: MORPHINE 2 MG/ML SYRINGE IVP STA (05:37)
[2018-01-31] MEDS ORDERED: ZOFRAN 4 MG/2 ML IVP STA (05:37)
[2018-01-31] MEDS ORDERED: DUONEB NEB STA (05:37)
[2018-01-31] MEDS ORDERED: ZOFRAN 4 MG/2 ML IVP PRN (06:00)
[2018-01-31] MEDS ORDERED: MORPHINE 2 MG/ML SYRINGE IVP PRN (06:00)
[2018-01-31] MEDS ORDERED: ZITHROMAX PO STA (06:00)
[2018-01-31] MEDS ORDERED: ROCEPHIN 1 GM in SODIUM CHLORIDE 50 ML IV STA (06:00)
[2018-01-31] MEDS ORDERED: ROCEPHIN ONE (06:04)
[2018-01-31] MEDS ORDERED: SOLU-MEDROL 125 MG IVP STA (06:08)
[2018-01-31] MEDS: DUONEB NEB SCH ×4 (06:27→21:20)
[2018-01-31 07:25] VITALS: BMI 19.2
[2018-01-31] MEDS ORDERED: NON-FORMULARY MEDICATION (Losartan Potassium 50 MG) PO SCH (09:00)
[2018-01-31] MEDS ORDERED: NON-FORMULARY MEDICATION (Sertraline Hcl [Sertraline Hcl] 100 MG) PO SCH (09:00)
[2018-01-31] MEDS: ATIVAN PO SCH ×3 (09:36→20:16)
[2018-01-31] MEDS: ZOLOFT PO SCH (09:37)
[2018-01-31] MEDS: NEURONTIN PO SCH ×3 (09:37→20:16)
[2018-01-31] MEDS: COZAAR PO SCH (09:37)
[2018-01-31] MEDS: NORCO 10-325 PO SCH ×3 (09:37→20:15)
[2018-01-31] MEDS: SYMBICORT 160-4.5 MCG INHALER IH SCH ×2 (09:38→20:15)
[2018-01-31] MEDS: SODIUM CHLORIDE 1,000 ML IV SCH ×3 (09:40→22:12)
[2018-01-31] MEDS: FERROUS SULFATE PO SCH (09:54)
[2018-01-31] MEDS: LOVENOX SUBCUT SCH (09:54)
--- NOTE | 2018-01-31 10:24 | PCM.PROG ---
Attending Provider: ATTENDING PROVIDER: Dr. VINNY PITT This patient is seen with Rachael Oliver, Nurse Practitioner. DATE OF SERVICE: 01/31/18 SUBJECTIVE: This 67 year old WHITE/ M was hospitalized 01/31/18. The patient is lying in bed resting comfortably. He has cough with yellow-green sputum. He sees Dr. Ferguson for lung cancer. REVIEW OF SYSTEMS: CONSTITUTIONAL: Weakness. No night sweats. No malaise, lethargy. No fever or chills. HEENT: Eyes: No visual changes. No eye pain. No eye discharge. ENT: No runny nose. No epistaxis. No sinus pain. No odynophagia. No congestion. RESPIRATORY: Cough, no congestion. No hemoptysis. Shortness of breath with exertion. CARDIOVASCULAR: No angina symptoms. No CHF symptoms. No atypical chest pain for CAD. No palpitations. No orthopnea.. GASTROINTESTINAL: No abdominal pain. No nausea or vomiting. No diarrhea or constipation. No hematemesis. No hematochezia. GENITOURINARY: No urgency. No frequency. No dysuria. No hematuria. No obstructive symptoms. No discharge. No pain. No significant abnormal bleeding. MUSCULOSKELETAL: No musculoskeletal pain; no joint swelling. NEUROLOGICAL: Awake, alert, oriented to time, place and person. No headache. No neck pain. No syncope. No seizures. No dizziness. PSYCHIATRIC: Not anxious. No depression. No suicidal thoughts. No homicidal thoughts. SKIN: No rash. No lesions. No wounds. ENDOCRINE: No unexplained weight loss. No weight gain. HEMATOLOGIC/LYMPHATIC: No anemia. No purpura. No petechiae. No prolonged or excessive bleeding. No palpable lymph nodes. PHYSICAL EXAMINATION: GENERAL: The patient is awake, alert and oriented, lying in bed in no distress. VITAL SIGNS: Temperature 98.2 F, Pulse 72, Respiratory Rate 20, BP 111/75, Pulse Ox 93% HEENT: Head normocephalic, atraumatic. Eyes: Extraocular muscles are intact. Pupils are equal, round and reactive to light and accommodation. Ears: No lesions. Nose appeared normal. Throat: No exudate or erythema. NECK: Supple. No JVD, no carotid bruit. No lymphadenopathy or thyromegaly. LUNGS: Severely diminished breath sounds bilaterally. Clear to auscultation. Percussion note normal. Chest symmetrical. HEART: S1, S2, no S3. No murmurs. No cyanosis or clubbing. No ascites. Pulses: Dorsalis pedis and posterior tibial pulses +1 to +2 both sides. ABDOMEN: Soft. Non-tender. Bowel sounds active. No CVA tenderness. No mass felt. EXTREMITIES: No edema. Full range of motion of all extremities, equal. NEUROLOGIC: No focal deficit. Cranial nerves II through XII are grossly intact. No headache, no double vision or headache. SKIN: Not dry. Intact. Turgor-normal. LYMPHATIC: No palpable lymph nodes/no lymphedema. MUSCULOSKELETAL: Normal joints with no swelling. Muscle tone is normal. LAB REVIEW: 01/31/18 05:15 01/31/18 05:15 01/31/18 05:15: Influ A Molecular Assay Negative by naat, Influ B Molecular Assay Negative by naat 01/31/18 05:15: Lactic Acid 1.10 01/31/18 05:15: Procalcitonin < 0.05 01/31/18 05:15: Sodium 139.3, Potassium 4.54, Chloride 102.1, Carbon Dioxide 32.0 H, Anion Gap 9.74, BUN 17.9, Creatinine 1.37 H, Estimated GFR (MDRD) 52.00 , BUN/Creatinine Ratio 13.06, Glucose 106.0, Calcium 9.61, Total Bilirubin 0.26 , AST 24.5, ALT 12.5, Alkaline Phosphatase 80.1, Total Creatine Kinase 51.1 L, Troponin I < 0.012, Total Protein 7.64, Albumin 4.27, Globulin 3.37, Albumin/ Globulin Ratio 1.26 01/31/18 05:15: WBC 13.49 H, RBC 4.23 L, Hgb 12.8 L, Hct 38.9 L, MCV 92.0, MCH 30.3, MCHC 32.9, RDW Coeff of Dominique 13.4, Plt Count 193, Immature Gran % (Auto) 0.3, Neut % (Auto) 71.4, Lymph % (Auto) 15.3, [place] % (Auto) 10.2 H, Eos % (Auto ) 2.4, Baso % (Auto) 0.4, Immature Gran # (Auto) 0.0, Neut # (Auto) 9.6 H, Lymph # (Auto) 2.1, [place] # (Auto) 1.4, Eos # (Auto) 0.3, Baso # (Auto) 0.1 01/31/18 05:02: Puncture Site Rrad, O2 Saturation 97.0, ABG pH 7.411, ABG pCO2 40.1, ABG pO2 85.0, ABG HCO3 25.5, ABG Total CO2 27, ABG Base Excess 1, George Test +, FiO2 % 21.0 ASSESSMENT: 1. Acute COPD exacerbation. 2. Lung cancer, left upper lobe. 3. Chronic kidney disease. 4. Hypertension. PLAN: 1. Continue IV antibiotics and steroids. 2. Continue nebs. 3. Will get sputum culture. 4. Continue home meds with exception of Prednisone which is on hold. Plan and coordination of the patient's care discussed in the presence of [employer] Supervisor and nurse. CONDITION: Stable SCRIBED BY: PHOEBE BLUE [employer] Operations Supervisor scribed while in presence of service performed by Dr. Pitt/Rachael Oliver APRN on 01/31/18 (08)
[2018-01-31] MEDS: SOLU-MEDROL 125 MG IVP SCH ×2 (14:05→20:17)
[2018-02-01] MEDS: DUONEB NEB SCH ×4 (04:46→21:30)
[2018-02-01] MEDS: SOLU-MEDROL 125 MG IVP SCH ×3 (04:52→20:53)
--- NOTE | 2018-02-01 09:06 | PCM.PROG ---
Attending Provider: ATTENDING PROVIDER: Dr. VINNY HUYNH This patient is seen with Rachael Oliver, Nurse Practitioner. DATE OF SERVICE: 02/01/18 SUBJECTIVE: This 67 year old WHITE/ M was hospitalized 01/31/18. The patient is lying in bed resting comfortably. Cough is improved. He has been eating well. Anticipate discharge home tomorrow. REVIEW OF SYSTEMS: CONSTITUTIONAL: No night sweats. No fatigue, malaise, lethargy. No fever or chills. HEENT: Eyes: No visual changes. No eye pain. No eye discharge. ENT: No runny nose. No epistaxis. No sinus pain. No odynophagia. No congestion. RESPIRATORY: Cough and wheeze. No hemoptysis. No shortness of breath. CARDIOVASCULAR: No angina symptoms. No CHF symptoms. No atypical chest pain for CAD. No palpitations. No orthopnea.. GASTROINTESTINAL: No abdominal pain. No nausea or vomiting. No diarrhea or constipation. No hematemesis. No hematochezia. GENITOURINARY: No urgency. No frequency. No dysuria. No hematuria. No obstructive symptoms. No discharge. No pain. No significant abnormal bleeding. MUSCULOSKELETAL: No musculoskeletal pain; no joint swelling. NEUROLOGICAL: Awake, alert, oriented to time, place and person. No headache. No neck pain. No syncope. No seizures. No dizziness. PSYCHIATRIC: Not anxious. No depression. No suicidal thoughts. No homicidal thoughts. SKIN: No rash. No lesions. No wounds. ENDOCRINE: No unexplained weight loss. No weight gain. HEMATOLOGIC/LYMPHATIC: No anemia. No purpura. No petechiae. No prolonged or excessive bleeding. No palpable lymph nodes. PHYSICAL EXAMINATION: GENERAL: The patient is awake, alert and oriented, lying/sitting in bed in no distress. VITAL SIGNS: Temperature 98.4 F, Pulse 90, Respiratory Rate 20, BP 110/50, Pulse Ox 94% HEENT: Head normocephalic, atraumatic. Eyes: Extraocular muscles are intact. Pupils are equal, round and reactive to light and accommodation. Ears: No lesions. Nose appeared normal. Throat: No exudate or erythema. NECK: Supple. No JVD, no carotid bruit. No lymphadenopathy or thyromegaly. LUNGS: Diminished breath sounds with wheeze bilaterally. Percussion note normal. Chest symmetrical. HEART: S1, S2, no S3. No murmurs. No cyanosis or clubbing. No ascites. Pulses: Dorsalis pedis and posterior tibial pulses +1 to +2 both sides. ABDOMEN: Soft. Non-tender. Bowel sounds active. No CVA tenderness. No mass felt. EXTREMITIES: No edema. Full range of motion of all extremities, equal. NEUROLOGIC: No focal deficit. Cranial nerves II through XII are grossly intact. No headache, no double vision or headache. SKIN: Not dry. Intact. Turgor-normal. LYMPHATIC: No palpable lymph nodes/no lymphedema. MUSCULOSKELETAL: Normal joints with no swelling. Muscle tone is normal. LAB REVIEW: 02/01/18 05:00 02/01/18 05:00 02/01/18 05:00: Sodium 136.3 L, Potassium 3.92, Chloride 102.1, Carbon Dioxide 26.4, Anion Gap 11.72, BUN 19.5, Creatinine 1.01, Estimated GFR (MDRD) 73.00, BUN/Creatinine Ratio 19.30, Glucose 156.4 H D, Calcium 8.51 02/01/18 05:00: WBC 15.36 H, RBC 3.61 L, Hgb 10.9 L, Hct 33.6 L, MCV 93.1, MCH 30.2, MCHC 32.4, RDW Coeff of Dominique 13.2, Plt Count 191, Immature Gran % (Auto) 1.2, Neut % (Auto) 88.2, Lymph % (Auto) 7.2 L, [place] % (Auto) 3.3, Eos % (Auto) 0.0, Baso % (Auto) 0.1, Immature Gran # (Auto) 0.2, Neut # (Auto) 13.5 H, Lymph # (Auto) 1.1, [place] # (Auto) 0.5, Eos # (Auto) 0.0, Baso # (Auto) 0.0 ASSESSMENT: 1. GERD 2. Acute COPD exacerbation. 3. Lung cancer, left upper lobe. 4. Chronic kidney disease. 5. Hypertension. PLAN: 1. Anticipate discharge home today. 2. Protonix 40 mg twice a day. Plan and coordination of the patient's care discussed in the presence of Data Processing Clerk and nurse. CONDITION: Stable SCRIBED BY: PHOEBE BLUE Site Physician scribed while in presence of service performed by Dr. Huynh/Rachael Oliver APRN on 02/01/18 ([id number])
[2018-02-01] MEDS: SYMBICORT 160-4.5 MCG INHALER IH SCH ×2 (09:13→20:53)
[2018-02-01] MEDS: ROCEPHIN 1 GM in SODIUM CHLORIDE 50 ML IV SCH (09:14)
[2018-02-01] MEDS: ATIVAN PO SCH ×3 (09:15→20:53)
[2018-02-01] MEDS: PROTONIX PO SCH ×2 (09:15→17:35)
[2018-02-01] MEDS: ZOLOFT PO SCH (09:15)
[2018-02-01] MEDS: NEURONTIN PO SCH ×3 (09:15→20:53)
[2018-02-01] MEDS: ZITHROMAX PO SCH (09:15)
[2018-02-01] MEDS: NORCO 10-325 PO SCH ×3 (09:15→20:53)
[2018-02-01] MEDS: FERROUS SULFATE PO SCH (09:15)
[2018-02-01] MEDS: COZAAR PO SCH (09:15)
[2018-02-01] MEDS: LOVENOX SUBCUT SCH (09:16)
[2018-02-02] MEDS: DUONEB NEB SCH ×2 (04:53→09:40)
[2018-02-02] MEDS: PROTONIX PO SCH (05:54)
[2018-02-02] MEDS: SOLU-MEDROL 125 MG IVP SCH (05:54)
[2018-02-02] MEDS: ATIVAN PO SCH (08:50)
[2018-02-02] MEDS: SYMBICORT 160-4.5 MCG INHALER IH SCH (08:50)
[2018-02-02] MEDS: ZITHROMAX PO SCH (08:51)
[2018-02-02] MEDS: NEURONTIN PO SCH (08:51)
[2018-02-02] MEDS: ZOLOFT PO SCH (08:51)
[2018-02-02] MEDS: FERROUS SULFATE PO SCH (08:51)
[2018-02-02] MEDS: NORCO 10-325 PO SCH (08:51)
[2018-02-02] MEDS: COZAAR PO SCH (08:52)
[2018-02-02] MEDS: LOVENOX SUBCUT SCH (08:52)
[2018-02-02] MEDS: ROCEPHIN 1 GM in SODIUM CHLORIDE 50 ML IV SCH (08:52)
--- NOTE | 2018-02-02 09:44 | PCM.PROG ---
Attending Provider: ATTENDING PROVIDER: Dr. VINNY HUYNH This patient is seen with Rachael Oliver, Nurse Practitioner. DATE OF SERVICE: 02/02/18 SUBJECTIVE: This 67 year old WHITE/ M was hospitalized 01/31/18. The patient is lying in bed resting comfortably. He is doing well. He is up and about walking. No shortness of breath. Cough has improved. He is eating well and feels ready to go home. REVIEW OF SYSTEMS: CONSTITUTIONAL: No night sweats. No fatigue, malaise, lethargy. No fever or chills. HEENT: Eyes: No visual changes. No eye pain. No eye discharge. ENT: No runny nose. No epistaxis. No sinus pain. No odynophagia. No congestion. RESPIRATORY: Cough and congestion which is better. No hemoptysis. No shortness of breath. CARDIOVASCULAR: No angina symptoms. No CHF symptoms. No atypical chest pain for CAD. No palpitations. No orthopnea.. GASTROINTESTINAL: No abdominal pain. No nausea or vomiting. No diarrhea or constipation. No hematemesis. No hematochezia. GENITOURINARY: No urgency. No frequency. No dysuria. No hematuria. No obstructive symptoms. No discharge. No pain. No significant abnormal bleeding. MUSCULOSKELETAL: No musculoskeletal pain; no joint swelling. NEUROLOGICAL: Awake, alert, oriented to time, place and person. No headache. No neck pain. No syncope. No seizures. No dizziness. PSYCHIATRIC: Not anxious. No depression. No suicidal thoughts. No homicidal thoughts. SKIN: No rash. No lesions. No wounds. ENDOCRINE: No unexplained weight loss. No weight gain. HEMATOLOGIC/LYMPHATIC: No anemia. No purpura. No petechiae. No prolonged or excessive bleeding. No palpable lymph nodes. PHYSICAL EXAMINATION: GENERAL: The patient is awake, alert and oriented, lying in bed in no distress. VITAL SIGNS: Temperature 98.4 F, Pulse 96, Respiratory Rate 20, BP 123/63, Pulse Ox 97% HEENT: Head normocephalic, atraumatic. Eyes: Extraocular muscles are intact. Pupils are equal, round and reactive to light and accommodation. Ears: No lesions. Nose appeared normal. Throat: No exudate or erythema. NECK: Supple. No JVD, no carotid bruit. No lymphadenopathy or thyromegaly. LUNGS: Diminished breath sounds. Clear to auscultation. Percussion note normal. Chest symmetrical. HEART: S1, S2, no S3. No murmurs. No cyanosis or clubbing. No ascites. Pulses: Dorsalis pedis and posterior tibial pulses +1 to +2 both sides. ABDOMEN: Soft. Non-tender. Bowel sounds active. No CVA tenderness. No mass felt. EXTREMITIES: No edema. Full range of motion of all extremities, equal. NEUROLOGIC: No focal deficit. Cranial nerves II through XII are grossly intact. No headache, no double vision or headache. SKIN: Not dry. Intact. Turgor-normal. LYMPHATIC: No palpable lymph nodes/no lymphedema. MUSCULOSKELETAL: Normal joints with no swelling. Muscle tone is normal. LAB REVIEW: 02/02/18 04:30 02/02/18 04:30 02/02/18 04:30: Sodium 129.3 L, Potassium 4.84, Chloride 98.6, Carbon Dioxide 29.7, Anion Gap 5.84, BUN 15.9, Creatinine 0.78, Estimated GFR (MDRD) 99.00, BUN /Creatinine Ratio 20.38, Glucose 131.7 H, Calcium 8.33 L 02/02/18 04:30: WBC 13.51 H, RBC 3.42 L, Hgb 10.3 L, Hct 31.0 L, MCV 90.6, MCH 30.1, MCHC 33.2, RDW Coeff of Dominiqeu 13.0, Plt Count 180, Immature Gran % (Auto) 1.0, Neut % (Auto) 90.9, Lymph % (Auto) 5.0 L, [place] % (Auto) 3.0, Eos % (Auto) 0.0, Baso % (Auto) 0.1, Immature Gran # (Auto) 0.1, Neut # (Auto) 12.3 H, Lymph # (Auto) 0.7, [place] # (Auto) 0.4, Eos # (Auto) 0.0, Baso # (Auto) 0.0 ASSESSMENT: 1. GERD. 2. Acute COPD exacerbation. 3. Lung cancer, left upper lobe. 4. Chronic kidney disease. 5. Hypertension. PLAN: 1. Will discharge home. 2. Instructed to use Albuterol inhaler three times a day. 3. Prednisone 20 mg b.i.d. times three then daily for three. 4. Keflex 500 mg t.i.d. times 5 days. 5. Will see the patient back in the office next week. Plan and coordination of the patient's care discussed in the presence of Ingot Car Operator and nurse. CONDITION: Stable SCRIBED BY: Morgan SANDERSist scribed while in presence of service performed by Dr. Huynh/Rachael Oliver APRN on 02/02/18 ([id number])
[2018-02-02 09:51] VITALS: BP 139/70; TEMP 98.1
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
--- NOTE | 2018-02-05 11:16 | PN ---
DATE OF SERVICE: 01/31/18 SUBJECTIVE: The patient was seen and examined with the nurse practitioner. The patient was admitted with acute bronchitis, severe chronic lung disease. His condition is somewhat better. His cardiovascular status is stable. PHYSICAL EXAMINATION: HEENT: Head normocephalic, atraumatic. Eyes: Extraocular muscles are intact. Pupils are equal, round and reactive to light and accommodation. Ears: No lesions. Nose appeared normal. Throat: No exudate or erythema. NECK: Supple. No JVD, no carotid bruit. No lymphadenopathy or thyromegaly. LUNGS: Decreased breath sounds. Clear to auscultation. Percussion note normal. Chest symmetrical. HEART: S1, S2, no S3. No murmurs. No cyanosis or clubbing. No ascites. Pulses: Dorsalis pedis and posterior tibial pulses +1 to +2 both sides. ABDOMEN: Soft. Nontender. Bowel sounds active. No CVA tenderness. No mass felt. EXTREMITIES: No edema. Right above elbow amputation from accident. NEUROLOGIC: No focal deficit. Cranial nerves II through XII are grossly intact. No headache, no double vision or headache. SKIN: Not dry. Intact. Turgor - normal. LYMPHATIC: No palpable lymph nodes/no lymphedema. MUSCULOSKELETAL: Normal joints with no swelling. Muscle tone is normal. CONDITION: Stable. EDUCATION: Counseling for smoking done. TIME SPENT: More than 30 minutes. Plan and coordination of the patient's care discussed in the presence of nurse. ROBIN
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
--- NOTE | 2018-02-07 14:09 | PN ---
DATE OF SERVICE: 02/02/18 SUBJECTIVE: The patient was seen and examined with the nurse practitioner 02/02/18. The patient is going to be discharged as bronchitis has resolved. He is advised to join Pulmonary Rehab which he declined. The patient is stable. TIME SPENT: More than 30 minutes. Plan and coordination of the patient's care discussed in the presence of nurse. ROBIN
--- NOTE | 2018-02-07 14:10 | PN ---
CODING FOR BILLING 01/31/18 LEVEL 5 02/01/18 INTERMEDIATE 02/02/18 DISCHARGE MTDD
== END 2018-02-02 11:00 | disposition home or self-care (01) | DRG 153 ==
LOC: ED 04:12 → MEDSURG B 06:04
PROVIDERS: ADMIT Internal Medicine; ATTEND Internal Medicine
DX: J02.9 Acute pharyngitis, unspecified (principal); J44.1 Chronic obstructive pulmonary disease with (acute) exacerbation; J45.909 Unspecified asthma, uncomplicated; K21.9 Gastro-esophageal reflux disease without esophagitis; I10 Essential (primary) hypertension; D64.9 Anemia, unspecified; G62.9 Polyneuropathy, unspecified; M19.90 Unspecified osteoarthritis, unspecified site; N18.9 Chronic kidney disease, unspecified; R06.2 Wheezing; R06.02 Shortness of breath; R53.1 Weakness; F41.9 Anxiety disorder, unspecified; F17.211 Nicotine dependence, cigarettes, in remission; Z85.118 Personal history of other malignant neoplasm of bronchus and lung
CPT/HCPCS: 36415; 80048; 80053; 82550; 82803; 83605; 84145; 84484; 85025; 87040; 87070; 87186; 87502; 87651; 93005; 93010; 94640; 96365; 96375; 97802; 99284

== ENCOUNTER 2018-04-16 07:09 | Inpatient (IN) ==
[2018-04-16] MEDS ORDERED: SOLU-MEDROL 125 MG IVP STA (07:16)
[2018-04-16] MEDS ORDERED: ROCEPHIN 2 GM in SODIUM CHLORIDE 100 ML IV STA (07:19)
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
[2018-04-16] MEDS ORDERED: ROCEPHIN ONE (07:32)
--- NOTE | 2018-04-16 07:58 | DI ---
EXAM: CHEST FRONTAL VIEW HISTORY: Shortness of breath. COMPARISON: 01/31/2018 FINDINGS: Heart size remains within normal limits. Prominent hilar shadows are stable since older s tudies including as far back as 03/24/2014. There is diffuse, chronic appearing interstitial accentu ation. Lungs are hyperinflated and there is relative lucency of the lung zones suggesting pulmonary emphysema. There is no vascular congestion, pneumothorax or pleural fluid. IMPRESSION: 1. Findings suggestive of at least moderate chronic obstructive pulmonary disease, correlate clinica lly. No definite consolidated pneumonia although managing the patient on a clinical basis is recomme nded.
[2018-04-16] MEDS ORDERED: VANCOMYCIN 1 GM in SODIUM CHLORIDE 250 ML IV STA (08:38)
[2018-04-16] MEDS ORDERED: SODIUM CHLORIDE 1,000 ML IV SCH (09:00)
[2018-04-16] MEDS ORDERED: NON-FORMULARY MEDICATION (Losartan Potassium 50 MG) PO SCH (09:00)
[2018-04-16] MEDS ORDERED: NON-FORMULARY MEDICATION (Sertraline Hcl [Sertraline Hcl] 100 MG) PO SCH (09:00)
[2018-04-16] MEDS ORDERED: SOLU-MEDROL 40 MG IVP SCH (09:00)
[2018-04-16] MEDS ORDERED: COZAAR PO SCH (09:00)
--- NOTE | 2018-04-16 09:41 | CT ---
EXAM: CT chest without contrast HISTORY: Short of air, chronic obstructive pulmonary disease COMPARISON: 10/08/2017 TECHNIQUE: CT chest performed without intravenous contrast. Coronal and sagittal reformatted images obtained. FINDINGS: Thyroid and thoracic inlet appear normal. Heart normal in size. Coronary calcifications. No pericardial effusion. Ectasia ascending aorta measuring 3.8 cm. Moderate atherosclerosis. Stab le rim-calcified nodule or vascular abnormality in the left kidney has been present since 2012. Para tracheal air cysts present. Evaluation for lymphadenopathy limited without contrast. No lymphadenop athy identified. No acute abnormalities of the bones. Degenerative change in the spine. Central ai rway patent. No pleural effusion or pneumothorax. Severe emphysema. Consolidation in the left uppe r lobe with surrounding ground-glass and nodular infiltrate with additional ground-glass and nodular infiltrates in the right upper land lower lung, with minimal ground-glass infiltrate in the left lowe r lobe. Right apical consolidation and/or scarring appears decreased. Probable left apical scarring appears unchanged. Similar appearing 0.9 cm spiculated nodular opacity left upper lobe image 17 - 1 8. 0.5 cm nodule left upper lobe image 15 is unchanged. IMPRESSION: 1. Multifocal consolidation with ground-glass and nodular infiltrates, most consistent with pneumoni a. CT chest follow-up is recommended 3 months given nodularity. 2. Similar appearing spiculated nodular opacity left upper lobe that may reflect a nodule versus sca rring. CT chest follow-up recommended 3 months. PET-CT or tissue sampling could also be considered. Additional stable pulmonary nodule present. 3. Severe emphysema. 4. Ectasia ascending aorta measuring 3.8 cm. 5. Stable rim-calcified nodule or vascular abnormality in the left kidney.
[2018-04-16] MEDS: ATIVAN PO SCH ×3 (10:17→20:07)
[2018-04-16] MEDS: NEURONTIN PO SCH ×3 (10:17→20:07)
[2018-04-16] MEDS: NORCO 10-325 PO SCH ×3 (10:17→20:07)
[2018-04-16] MEDS: ZOLOFT PO SCH (10:18)
[2018-04-16] MEDS: SPIRIVA IH SCH (10:19)
[2018-04-16 10:22] VITALS: BMI 21.2
[2018-04-16] MEDS: DUONEB NEB SCH ×3 (11:50→23:25)
[2018-04-16] MEDS: SODIUM CHLORIDE 1,000 ML IV SCH ×2 (15:08→19:45)
[2018-04-16] MEDS: VANCOMYCIN 500 MG in SODIUM CHLORIDE 100 ML IV SCH (20:00)
[2018-04-16] MEDS: SOLU-MEDROL 125 MG IVP SCH ×2 (20:06→23:30)
[2018-04-16] MEDS ORDERED: VANCOMYCIN 1 GM in SODIUM CHLORIDE 250 ML IV SCH (21:00)
[2018-04-17] MEDS: SODIUM CHLORIDE 1,000 ML IV SCH ×3 (02:46→18:17)
[2018-04-17] MEDS: DUONEB NEB SCH ×4 (05:00→23:20)
[2018-04-17] MEDS: SOLU-MEDROL 125 MG IVP SCH ×3 (05:29→20:58)
[2018-04-17] MEDS: PROTONIX PO SCH (05:30)
[2018-04-17] MEDS: ROCEPHIN 1 GM in SODIUM CHLORIDE 50 ML IV SCH (09:22)
[2018-04-17] MEDS: SPIRIVA IH SCH (09:25)
[2018-04-17] MEDS: NEURONTIN PO SCH ×3 (09:25→20:58)
[2018-04-17] MEDS: ZOLOFT PO SCH (09:26)
[2018-04-17] MEDS: NORCO 10-325 PO SCH ×3 (09:26→20:59)
[2018-04-17] MEDS: ATIVAN PO SCH ×3 (09:26→20:59)
--- NOTE | 2018-04-17 09:41 | PCM.PROG ---
Attending Provider: ATTENDING PROVIDER: Dr. VINNY HUYNH This patient is seen with Rachael Oliver, Nurse Practitioner. DATE OF SERVICE: 04/17/18 SUBJECTIVE: This 68 year old WHITE/ M was hospitalized 04/16/18. The patient is lying in bed resting comfortably. Shortness of breath has significantly improved , satting greater than 94 on 2L comfortably. Repeat chest x-ray ordered today. REVIEW OF SYSTEMS: CONSTITUTIONAL: No night sweats. No fatigue, malaise, lethargy. No fever or chills. HEENT: Eyes: No visual changes. No eye pain. No eye discharge. ENT: No runny nose. No epistaxis. No sinus pain. No odynophagia. No congestion. RESPIRATORY: Cough and shortness of breath. No hemoptysis. CARDIOVASCULAR: No angina symptoms. No CHF symptoms. No atypical chest pain for CAD. No palpitations. No orthopnea.. GASTROINTESTINAL: No abdominal pain. No nausea or vomiting. No diarrhea or constipation. No hematemesis. No hematochezia. GENITOURINARY: No urgency. No frequency. No dysuria. No hematuria. No obstructive symptoms. No discharge. No pain. No significant abnormal bleeding. MUSCULOSKELETAL: No musculoskeletal pain; no joint swelling. NEUROLOGICAL: Awake, alert, oriented to time, place and person. No headache. No neck pain. No syncope. No seizures. No dizziness. PSYCHIATRIC: Not anxious. No depression. No suicidal thoughts. No homicidal thoughts. SKIN: No rash. No lesions. No wounds. ENDOCRINE: No unexplained weight loss. No weight gain. HEMATOLOGIC/LYMPHATIC: No anemia. No purpura. No petechiae. No prolonged or excessive bleeding. No palpable lymph nodes. PHYSICAL EXAMINATION: GENERAL: The patient is awake, alert and oriented, lying/sitting in bed in no distress. VITAL SIGNS: Temperature 98.7 F, Pulse 83, Respiratory Rate 16, BP 105/57, Pulse Ox 96% HEENT: Head normocephalic, atraumatic. Eyes: Extraocular muscles are intact. Pupils are equal, round and reactive to light and accommodation. Ears: No lesions. Nose appeared normal. Throat: No exudate or erythema. NECK: Supple. No JVD, no carotid bruit. No lymphadenopathy or thyromegaly. LUNGS: Diminished breath sounds. Clear to auscultation. Percussion note normal. Chest symmetrical. HEART: S1, S2, no S3. No murmurs. No cyanosis or clubbing. No ascites. Pulses: Dorsalis pedis and posterior tibial pulses +1 to +2 both sides. ABDOMEN: Soft. Non-tender. Bowel sounds active. No CVA tenderness. No mass felt. EXTREMITIES: No edema. Full range of motion of all extremities, equal. NEUROLOGIC: No focal deficit. Cranial nerves II through XII are grossly intact. No headache, no double vision or headache. SKIN: Not dry. Intact. Turgor-normal. LYMPHATIC: No palpable lymph nodes/no lymphedema. MUSCULOSKELETAL: Normal joints with no swelling. Muscle tone is normal. LAB REVIEW: 04/17/18 04:25 04/17/18 04:25 04/17/18 04:25: Sodium 136.8, Potassium 3.82, Chloride 102.1, Carbon Dioxide 26.0, Anion Gap 12.52, BUN 28.7 H, Creatinine 1.08, Estimated GFR (MDRD) 68.00, BUN/Creatinine Ratio 26.57, Glucose 171.9 H D, Calcium 8.28 L, Total Bilirubin 0.13 L, AST 18.2, ALT 12.9, Alkaline Phosphatase 53.6 L, Total Protein 6.02 L, Albumin 3.12 L, Globulin 2.90, Albumin/Globulin Ratio 1.07 04/17/18 04:25: WBC 11.26 H, RBC 3.24 L, Hgb 9.8 L, Hct 30.4 L D, MCV 93.8, MCH 30.2, MCHC 32.2, RDW Coeff of Dominique 13.0, Plt Count 166, Immature Gran % (Auto) 0.7, Neut % (Auto) 93.7, Lymph % (Auto) 2.7 L, [place] % (Auto) 2.8, Eos % (Auto) 0.0, Baso % (Auto) 0.1, Immature Gran # (Auto) 0.1, Neut # (Auto) 10.6 H, Lymph # (Auto) 0.3 L, [place] # (Auto) 0.3 L, Eos # (Auto) 0.0, Baso # (Auto) 0.0 04/16/18 23:07: Total Creatine Kinase 28.5 L, Troponin I < 0.012 04/16/18 14:43: Total Creatine Kinase 34.1 L, Troponin I < 0.012 04/16/18 08:49: Puncture Site Rb, O2 Saturation 92.0 L, ABG pH 7.279 L*, ABG pCO2 53.7 H, ABG pO2 72.0 L, ABG HCO3 25.2, ABG Total CO2 27, ABG Base Excess -2 , O2 Delivery Device Nc, Oxygen Liter Flow 2.00 04/16/18 07:18: Procalcitonin 0.95 ASSESSMENT: 1. Acute respiratory failure - clinically resolved. 2. Bilateral pneumonia. 3. Severe COPD with acute exacerbation. 4. Left lobe lung cancer, has undergone radiation. PLAN: 1. Decrease Solu-Medrol to q.8hr 2. Decrease fluids to 75 mL/hr. Plan and coordination of the patient's care discussed in the presence of Director Of Group Sales and nurse. CONDITION: Stable SCRIBED BY: PHOEBE BLUE Site Damage Prevention Technician scribed while in presence of service performed by Dr. Huynh/Rachael Oliver APRN on 04/17/18 (08)
[2018-04-17] MEDS: VANCOMYCIN 500 MG in SODIUM CHLORIDE 100 ML IV SCH ×2 (09:55→20:58)
--- NOTE | 2018-04-17 10:11 | DI ---
EXAM: CHEST FRONTAL VIEW HISTORY: Shortness of breath. COMPARISON: 04/16/2018 FINDINGS: Heart size remains within normal limits. There is diffuse, chronic appearing interstitial accentuation. Lungs are hyperinflated and there is relative lucency of the lung zones suggesting pu lmonary emphysema. Scattered mild patchy areas of density are slightly more noticeable or new and co uld represent areas of pneumonia given history. Correlate clinically. No vascular congestion, pneum othorax or pleural fluid. IMPRESSION: 1. Appearance suggestive of chronic obstructive pulmonary disease, correlate clinically. Cannot exc lude mild patchy areas of pneumonia.
--- NOTE | 2018-04-17 11:52 | HP ---
DATE OF SERVICE: 04/16/18 REASON FOR HOSPITALIZATION/HISTORY OF PRESENT ILLNESS: This is a 68 year old white male who presented to the emergency room by the ambulance. He is coming in with progressive shortness of breath. PAST MEDICAL HISTORY: Severe COPD Recurrent pneumonia Left lung cancer which he currently underwent radiation, seen by Dr. Lacey and Dr. Finnegan and Dr. 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 No fatigue, malaise, lethargy. No fever or chills. Weakness. HEENT: Eyes: No visual changes. No eye pain. No eye discharge. ENT: No runny nose. No epistaxis. No sinus pain. No sore throat. No odynophagia. No ear pain. No congestion. RESPIRATORY: Cough, no congestion. No hemoptysis. Shortness of breath. CARDIOVASCULAR: No angina symptoms. No CHF symptoms. No atypical chest pain for CAD. No palpitations. No PND. No orthopnea. GASTROINTESTINAL: No abdominal pain. No nausea or vomiting. No diarrhea or constipation. No hematemesis. No hematochezia. Loss of appetite. GENITOURINARY: No urgency. No frequency. No dysuria. No hematuria. No obstructive symptoms. No discharge. No pain. No significant abnormal bleeding. MUSCULOSKELETAL: No musculoskeletal pain. No joint swelling. No arthritis. NEUROLOGICAL: No headache. No neck pain. No syncope. No seizures. No dizziness. PSYCHIATRIC: Not anxious. No depression. No suicidal thoughts. No homicidal thoughts. SKIN: No rash. No lesions. No wounds. ENDOCRINE: No unexplained weight loss. No weight gain. HEMATOLOGIC/LYMPHATIC: No anemia. No purpura. No petechiae. No prolonged or excessive bleeding. No palpable lymph nodes. PERSONAL/FAMILY/SOCIAL HISTORY: The patient is a former smoker, He is and lives with his . No alcohol or illicit drug use. MEDICATIONS: Sertraline 100mg PO daily Hydrocodone/ Acetaminophen 10-325mg three times a day Lorazepam 0.5mg PO three times a day Neurontin 100mg PO three times a day Symbicort 160-4.5mcg inhaler one puff INH twice a day Spiriva 1 capsule IH daily Cozaar 50mg PO daily Ferrous Sulfate 324mg PO daily Protonix 40mg PO QDAC ALLERGIES: No known allergies PHYSICAL EXAMINATION: GENERAL: The patient is ill appearing and in mild distress. The patient is alert and oriented times three. VITAL SIGNS: Temperature 100.8, pulse 116, respiratory rate 22, blood pressure 99/67, pulse ox 79%. HEENT: Head normocephalic, atraumatic. Eyes: Extraocular muscles are intact. Pupils are equal, round and reactive to light and accommodation. Ears: No lesions. Nose appeared normal. Throat: No exudate or erythema. NECK: Supple. No JVD, no carotid bruit. No lymphadenopathy or thyromegaly. LUNGS: Severely diminished breath sounds bilateral with rales on the right and left. Clear to auscultation. Percussion note normal. Chest symmetrical. HEART: S1, S2, no S3. No murmurs. No cyanosis or clubbing. No ascites. Pulses: Dorsalis pedis and posterior tibial pulses +1 to +2 bilaterally. ABDOMEN: Soft. Nontender. Bowel sounds active. No CVA tenderness. No mass felt. EXTREMITIES: No edema. Full range of motion of all extremities, equal. NEUROLOGIC: No focal deficit. Cranial nerves II through XII are grossly intact. No headache, no double vision or headache. SKIN: Not dry. Intact. Turgor - normal. LYMPHATIC: No palpable lymph nodes/no lymphedema. MUSCULOSKELETAL: Normal joints with no swelling. Muscle tone is normal. LABS: CT of the chest shows multifocal consolidation with ground glass nodular infiltrates most consistent with pneumonia, nodular opacity in left upper lobe that was present prior consistent with the lung cancer, Severe COPD. ABG's initially on room air pH 7.293, pCO2 51, pO2 40, base excess -2, bicarb 24.7, TCO2 26, O2 sat 68, Sodium 132, potassium 4.3, Chloride 96, CO2 29, BUN 19, creatinine 1.29, glucose 104, total bilirubin 0.68, AST 18, Alt 9.4, CK 34, Troponin less than 0.01, WBC 16.14, hgb 11.9, hct 36.0, plt count 164. Flu A and B are both negative. Strep is negative. ASSESSMENT: 1. Acute respiratory failure 2. Bilateral pneumonia 3. History CA of the left lung PLAN: 1. We will admit to special care 2. Routine telemetry orders 3. CBC and CMP daily 4. Start Rocephin 1 gram IV daily 5. Start Vancomycin 1gram IV Q 12 hours 6. Normal Saline IV at 75cc an hour 7. Oxygen at 1-3 liters as needed or a BIPAP to keep saturation greater than 90 % 8. Repeat ABG's in 30 minutes 9. Continue home medications 10.Started Solu-Medrol 125mg IV Q 8 hours 11.Xopenex NEB treatment Q 6 hours scheduled 12.Sputum for culture and sensitivity Will follow closely. TIME SPENT: More than 70 minutes. MTDD
[2018-04-18] MEDS: SODIUM CHLORIDE 1,000 ML IV SCH (04:32)
[2018-04-18] MEDS: DUONEB NEB SCH ×4 (05:00→19:30)
[2018-04-18] MEDS: SOLU-MEDROL 125 MG IVP SCH (06:07)
[2018-04-18] MEDS: PROTONIX PO SCH (06:07)
[2018-04-18] MEDS: ROCEPHIN 1 GM in SODIUM CHLORIDE 50 ML IV SCH (09:00)
[2018-04-18] MEDS: NEURONTIN PO SCH ×3 (09:01→20:23)
[2018-04-18] MEDS: NORCO 10-325 PO SCH ×3 (09:01→20:23)
[2018-04-18] MEDS: ATIVAN PO SCH ×3 (09:01→20:23)
[2018-04-18] MEDS: ZOLOFT PO SCH (09:01)
[2018-04-18] MEDS: SPIRIVA IH SCH (09:02)
[2018-04-18] MEDS ORDERED: MYLANTA SUSP PO PRN (09:16)
--- NOTE | 2018-04-18 09:22 | PCM.PROG ---
Attending Provider: ATTENDING PROVIDER: Dr. VINNY HUYNH DATE OF SERVICE: 04/18/18 SUBJECTIVE: This 68 year old WHITE/ M was hospitalized 04/16/18 with acute pneumonitis/bronchitis/respiratory failure. The patient has chronic respiratory failure compensated. Condition has improved remarkably. He is feeling better, talking in complete sentences without being short of breath. Appetite improved, hydration improved. REVIEW OF SYSTEMS: CONSTITUTIONAL: No night sweats. No fatigue, malaise, lethargy. No fever or chills. HEENT: Eyes: No visual changes. No eye pain. No eye discharge. ENT: No runny nose. No epistaxis. No sinus pain. No odynophagia. No congestion. RESPIRATORY: No cough, no congestion. No hemoptysis. No shortness of breath. CARDIOVASCULAR: No angina symptoms. No CHF symptoms. No atypical chest pain for CAD. No palpitations. No orthopnea.. GASTROINTESTINAL: No abdominal pain. No nausea or vomiting. No diarrhea or constipation. No hematemesis. No hematochezia. GENITOURINARY: No urgency. No frequency. No dysuria. No hematuria. No obstructive symptoms. No discharge. No pain. No significant abnormal bleeding. MUSCULOSKELETAL: No musculoskeletal pain; no joint swelling. NEUROLOGICAL: Awake, alert, oriented to time, place and person. No headache. No neck pain. No syncope. No seizures. No dizziness. PSYCHIATRIC: Not anxious. No depression. No suicidal thoughts. No homicidal thoughts. SKIN: No rash. No lesions. No wounds. ENDOCRINE: No unexplained weight loss. No weight gain. HEMATOLOGIC/LYMPHATIC: No anemia. No purpura. No petechiae. No prolonged or excessive bleeding. No palpable lymph nodes. PHYSICAL EXAMINATION: GENERAL: The patient is awake, alert and oriented, lying in bed in no distress. VITAL SIGNS: Temperature 97.8 F, Pulse 73, Respiratory Rate 16, BP 116/58, Pulse Ox 99% HEENT: Head normocephalic, atraumatic. Eyes: Extraocular muscles are intact. Pupils are equal, round and reactive to light and accommodation. Ears: No lesions. Nose appeared normal. Throat: No exudate or erythema. NECK: Supple. No JVD, no carotid bruit. No lymphadenopathy or thyromegaly. LUNGS: Very faint expiratory wheeze, good air entry. Percussion note normal. Chest symmetrical. HEART: S1, S2, no S3. No murmurs. No cyanosis or clubbing. No ascites. Pulses: Dorsalis pedis and posterior tibial pulses +1 to +2 both sides. ABDOMEN: Soft. Non-tender. Bowel sounds active. No CVA tenderness. No mass felt. EXTREMITIES: No edema. Full range of motion of all extremities, equal. NEUROLOGIC: No focal deficit. Cranial nerves II through XII are grossly intact. No headache, no double vision or headache. SKIN: Warm and dry. Intact. Turgor-normal. LYMPHATIC: No palpable lymph nodes/no lymphedema. MUSCULOSKELETAL: Normal joints with no swelling. Muscle tone is normal. LAB REVIEW: 04/18/18 06:40 04/18/18 06:40 04/18/18 06:40: Sodium 137.8, Potassium 4.07, Chloride 103.7, Carbon Dioxide 26.6, Anion Gap 11.57, BUN 19.1, Creatinine 0.75, Estimated GFR (MDRD) 103.00, BUN/Creatinine Ratio 25.46, Glucose 158.6 H, Calcium 8.41, Total Bilirubin 0.15 L, AST 22.7, ALT 12.1, Alkaline Phosphatase 61.6, Total Protein 5.82 L, Albumin 2.98 L, Globulin 2.84, Albumin/Globulin Ratio 1.04 04/18/18 06:40: WBC 10.92 H, RBC 3.17 L, Hgb 9.4 L, Hct 29.2 L, MCV 92.1, MCH 29.7, MCHC 32.2, RDW Coeff of Dominique 13.2, Plt Count 174, Immature Gran % (Auto) 0.6, Neut % (Auto) 92.0, Lymph % (Auto) 3.8 L, [place] % (Auto) 3.6, Eos % (Auto) 0.0, Baso % (Auto) 0.0, Immature Gran # (Auto) 0.1, Neut # (Auto) 10.0 H, Lymph # (Auto) 0.4 L, [place] # (Auto) 0.4, Eos # (Auto) 0.0, Baso # (Auto) 0.0 ASSESSMENT: 1. Acute bronchitis with severe chronic lung disease. 2. CA of lung status post radiation. 3. Chronic respiratory failure. PLAN: 1. Continue nebs, steroids and antibiotics. 2. Will put the patient on Prednisone 20 mg daily. 3. D/C Vancomycin. 4. ABG on room air. 5. The patient is encouraged to exercise. 6. Good nutrition discussed. Plan and coordination of the patient's care discussed in the presence of Charge Poster and nurse. EDUCATION: This patient may end up on steroids frequently from now on. Side effects of steroids discussed with the patient to include femoral head necrosis, osteoarthritis, diabetes mellitus, et cetera. The patient voices understanding and is agreeable. CONDITION: Stable SCRIBED BY: PHOEBE BLUE Supervisor Dumping scribed while in presence of service performed by Dr. VINNY HUYNH on 04/18/18 ([id number])
--- NOTE | 2018-04-18 14:21 | PN ---
DATE OF SERVICE: 04/16/18 SUBJECTIVE: The patient was seen and examined with Nurse Practitioner. First time he was seen was in the emergency room and the second time he was seen in the special care bed 1. The patient says that he is feeling better. At that time when I saw him in the emergency room that patient was congested, short of breath with cough , congestion and yellowish sputum production. The patient's arterial blood gasses showed severe hypoxemia with elevated CO2 level with normal pH. The patient was oriented to time, place and person. He put on 2 liters with remarkably improvement in his oxygen saturation with pO2 being over 60. There was some question of intubating this patient. The patient flatly declined. The patient is DNR. The patient has history of C of the lung treated with radiation and followed by pulmonary physician. The patient has quit smoking a year and half ago. Onset of symptoms is 24-48 hours. PHYSICAL EXAMINATION: GENERAL: The patient is oriented to time, place and person. HEENT: Head normocephalic, atraumatic. Eyes: Extraocular muscles are intact. Pupils are equal, round and reactive to light and accommodation. Ears: No lesions. Nose appeared normal. Throat: No exudate or erythema. NECK: Supple. No JVD, no carotid bruit. No lymphadenopathy or thyromegaly. LUNGS: Decreased breath sounds with mild wheezing. Percussion note normal. Chest symmetrical. HEART: S1, S2, no S3. No murmurs. No cyanosis or clubbing. No ascites. Pulses: Dorsalis pedis and posterior tibial pulses +1 to +2 bilaterally. ABDOMEN: Soft. Nontender. Bowel sounds active. No CVA tenderness. No mass felt. EXTREMITIES: No edema. Full range of motion of all extremities, equal. NEUROLOGIC: No focal deficit. Cranial nerves II through XII are grossly intact. No headache, no double vision or headache. SKIN: Not dry. Intact. Turgor - normal. LYMPHATIC: No palpable lymph nodes/no lymphedema. MUSCULOSKELETAL: Normal joints with no swelling. Muscle tone is normal. ASSESSMENT: 1. Acute bronchitis with acute respiratory failure on chronic respiratory failure 2. History of C of the lung PLAN: 1. Given IV antibiotics 2. Steroids 3. NEBS treatment 4. Low slow oxygen. Monitor oxygen saturation CONDITION : Stable. PROGNOSIS: Poor TIME SPENT: More than 30 minutes. Plan and coordination of the patient's care discussed in the presence of nurse. ROBIN
[2018-04-19 02:58] VITALS: TEMP 97.8
[2018-04-19] MEDS: DUONEB NEB SCH ×2 (05:00→10:20)
[2018-04-19 05:30] VITALS: BP 139/63
[2018-04-19] MEDS: PROTONIX PO SCH (05:59)
[2018-04-19] MEDS ORDERED: PREDNISONE PO SCH (08:00)
[2018-04-19] MEDS: SPIRIVA IH SCH (08:27)
[2018-04-19] MEDS: ZOLOFT PO SCH (08:27)
[2018-04-19] MEDS: ATIVAN PO SCH (08:28)
[2018-04-19] MEDS: NEURONTIN PO SCH (08:28)
[2018-04-19] MEDS: NORCO 10-325 PO SCH (08:28)
[2018-04-19] MEDS: ROCEPHIN 1 GM in SODIUM CHLORIDE 50 ML IV SCH (08:29)
--- NOTE | 2018-04-19 09:43 | PCM.PROG ---
Attending Provider: ATTENDING PROVIDER: Dr. VINNY HUYNH DATE OF SERVICE: 04/19/18 SUBJECTIVE: This 68 year old WHITE/ M was hospitalized 04/16/18 with respiratory failure, acute. The patient has chronic respiratory failure. The patient's condition is improved with breathing treatment, nebs and steroids. REVIEW OF SYSTEMS: CONSTITUTIONAL: No night sweats. No fatigue, malaise, lethargy. No fever or chills. HEENT: Eyes: No visual changes. No eye pain. No eye discharge. ENT: No runny nose. No epistaxis. No sinus pain. No odynophagia. No congestion. RESPIRATORY: No cough, no congestion. No hemoptysis. No shortness of breath. CARDIOVASCULAR: No angina symptoms. No CHF symptoms. No atypical chest pain for CAD. No palpitations. No orthopnea.. GASTROINTESTINAL: No abdominal pain. No nausea or vomiting. No diarrhea or constipation. No hematemesis. No hematochezia. GENITOURINARY: No urgency. No frequency. No dysuria. No hematuria. No obstructive symptoms. No discharge. No pain. No significant abnormal bleeding. MUSCULOSKELETAL: No musculoskeletal pain; no joint swelling. NEUROLOGICAL: Awake, alert, oriented to time, place and person. No headache. No neck pain. No syncope. No seizures. No dizziness. PSYCHIATRIC: Not anxious. No depression. No suicidal thoughts. No homicidal thoughts. SKIN: No rash. No lesions. No wounds. ENDOCRINE: No unexplained weight loss. No weight gain. HEMATOLOGIC/LYMPHATIC: No anemia. No purpura. No petechiae. No prolonged or excessive bleeding. No palpable lymph nodes. PHYSICAL EXAMINATION: GENERAL: The patient is awake, alert and oriented, lying in bed in no distress. VITAL SIGNS: Temperature 97.8 F, Pulse 59, Respiratory Rate 20, BP 139/63, Pulse Ox 98% HEENT: Head normocephalic, atraumatic. Eyes: Extraocular muscles are intact. Pupils are equal, round and reactive to light and accommodation. Ears: No lesions. Nose appeared normal. Throat: No exudate or erythema. NECK: Supple. No JVD, no carotid bruit. No lymphadenopathy or thyromegaly. LUNGS: Decreased breath sounds. Clear to auscultation. Percussion note normal. Chest symmetrical. HEART: S1, S2, no S3. No murmurs. No cyanosis or clubbing. No ascites. Pulses: Dorsalis pedis and posterior tibial pulses +1 to +2 both sides. ABDOMEN: Soft. Non-tender. Bowel sounds active. No CVA tenderness. No mass felt. EXTREMITIES: No edema. Full range of motion of all extremities, equal. NEUROLOGIC: No focal deficit. Cranial nerves II through XII are grossly intact. No headache, no double vision or headache. SKIN: Warm and dry. Intact. Turgor-normal. LYMPHATIC: No palpable lymph nodes/no lymphedema. MUSCULOSKELETAL: Normal joints with no swelling. Muscle tone is normal. LAB REVIEW: 04/19/18 04:30 04/19/18 04:30 04/19/18 04:30: Sodium 141.0, Potassium 4.20, Chloride 107.0, Carbon Dioxide 31.8 H, Anion Gap 6.40, BUN 19.9, Creatinine 0.81, Estimated GFR (MDRD) 94.00, BUN/Creatinine Ratio 24.56, Glucose 109.7 H, Calcium 8.59, Total Bilirubin < 0.10 L, AST 24.6, ALT 12.4, Alkaline Phosphatase 54.1 L, Total Protein 5.43 L, Albumin 2.70 L, Globulin 2.73, Albumin/Globulin Ratio 0.98 04/19/18 04:30: WBC 10.10, RBC 3.25 L, Hgb 9.7 L, Hct 31.1 L, MCV 95.7 H, MCH 29.8, MCHC 31.2 L, RDW Coeff of Dominique 13.9, Plt Count 199, Neutrophils % (Manual) 81.0 H, Band Neutrophils % Not Reportable, Lymphocytes % (Manual) 16.0, Monocytes % (Manual) 3.0, Anisocytosis Not present 04/18/18 09:30: Puncture Site R rad, O2 Saturation 88.0 L, ABG pH 7.330 L, ABG pCO2 40.4, ABG pO2 59.0 L*, ABG HCO3 21.3 L, ABG Total CO2 23, ABG Base Excess - 5 L, George Test +, FiO2 % 21.0 ASSESSMENT: 1. Acute bronchitis, resolved. The patient still has mild chronic bronchitis, which is chronic. 2. Respiratory failure, acute has resolved but has chronic respiratory failure with compensated respiratory acidosis. 4. CA of the lung. PLAN: 1. Discharge home on antibiotics, steroids and nebulizer treatments. 2. Prednisone 20 mg daily times five days then 10 mg daily for 5 days. 3. Omnicef 300 mg b.i.d. times five days. 4. Will see the patient in the office next week. Plan and coordination of the patient's care discussed in the presence of Metal Handler and nurse. EDUCATION: Discussed with the patient the side effects of steroids to include avascular necrosis of the hip, osteoporosis, diabetes mellitus, et cetera. The patient understands. CONDITION: Stable SCRIBED BY: PHOEBE BLUE Parts Sales Associate scribed while in presence of service performed by Dr. VINNY HUYNH on 04/19/18 (1942)
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
--- NOTE | 2018-04-20 08:49 | PN ---
04/16/18: Level 5 04/17/18: Intermediate 04/18/18: Intermediate 04/19/18: D as in discharge MTDD
== END 2018-04-19 11:48 | disposition home or self-care (01) | DRG 189 ==
LOC: ED 07:09 → SCU 08:52 → MEDSURG A 04-18 13:15
PROVIDERS: ADMIT Internal Medicine; ATTEND Internal Medicine
DX: J96.00 Acute respiratory failure, unspecified whether with hypoxia or hypercapnia (principal); J18.9 Pneumonia, unspecified organism; J44.1 Chronic obstructive pulmonary disease with (acute) exacerbation; J20.9 Acute bronchitis, unspecified; I10 Essential (primary) hypertension; D64.9 Anemia, unspecified; N18.9 Chronic kidney disease, unspecified; M19.90 Unspecified osteoarthritis, unspecified site; R06.02 Shortness of breath; R53.1 Weakness; R63.0 Anorexia; Z99.81 Dependence on supplemental oxygen
CPT/HCPCS: 36415; 80053; 82550; 82803; 83605; 84145; 84484; 85007; 85025; 85610; 85730; 87040; 87070; 87081; 87186; 87502; 87651; 93005; 93010; 94640; 96365; 96366; 96375; 99223; 99232; 99239; 99284

== ENCOUNTER 2018-08-03 14:33 | Emergency (ER) | payer OTHER ==
[2018-08-03 14:41] VITALS: BP 157/79; TEMP 99.1; BMI 20.3
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
== END 2018-08-03 15:37 | disposition home or self-care (01) ==
LOC: ED 14:33
DX: L73.9 Follicular disorder, unspecified (principal)
CPT/HCPCS: 99282

== ENCOUNTER 2018-11-09 12:16 | Inpatient (IN) ==
[2018-11-09 12:35] VITALS: BMI 19.9
[2018-11-09] MEDS ORDERED: TYLENOL PO PRN (12:41)
[2018-11-09] MEDS ORDERED: ATROPINE SULFATE PFS IVP PRN (12:41)
[2018-11-09] MEDS ORDERED: VISTARIL INJ IM PRN (12:41)
[2018-11-09] MEDS ORDERED: NITROSTAT SL PRN (12:41)
[2018-11-09] MEDS ORDERED: SODIUM CHLORIDE 1,000 ML IV SCH (13:00)
[2018-11-09] MEDS: ROCEPHIN 1 GM PREMIX 1 GM in PREMIX 50 ML D5W 1 BAG IV SCH (13:55)
[2018-11-09] MEDS: ZITHROMAX PO SCH (13:59)
[2018-11-09] MEDS: XOPENEX 1.25 MG NEB SCH ×2 (14:05→20:50)
[2018-11-09] MEDS: SOLU-CORTEF 250 MG IVP SCH ×2 (14:15→20:29)
[2018-11-09] MEDS ORDERED: ZOLOFT PO SCH (14:30)
[2018-11-09] MEDS: ATIVAN PO SCH ×2 (15:37→20:29)
[2018-11-09] MEDS: NORCO 10-325 PO SCH ×2 (15:37→20:29)
[2018-11-09] MEDS: NEURONTIN PO SCH ×2 (15:37→20:29)
--- NOTE | 2018-11-09 16:00 | DI ---
EXAM: Chest two views HISTORY: Acute pneumonitis, shortness of breath COMPARISON: 04/17/2018, 04/16/2018 TECHNIQUE: Two views of the chest were performed FINDINGS: Hyperexpanded lungs. Similar right greater than left biapical scarring. Unchanged promine nce of the central pulmonary vasculature, as seen on prior CT. No pneumothorax, pleural effusion, fo patricia consolidation. The heart is normal in size. The mediastinal contour is normal. There are no ac jamie abnormalities of the bones. IMPRESSION: Chronic obstructive pulmonary disease/emphysematous change without acute airspace diseas e.
--- NOTE | 2018-11-09 16:05 | DI ---
EXAM: Abdomen one view HISTORY: Increased bloating, decreased appetite COMPARISON: Chest radiograph dated 04/17/2018 TECHNIQUE: Single view abdomen was performed. FINDINGS: There are no dilated loops of small bowel. Mild - distension of small and large bowel with in the abdomen.There is air and stool throughout the colon. There are no abnormal calcifications. T here are no acute abnormalities of the bones. Clear lung bases. IMPRESSION: Nonspecific but nonobstructive bowel gas pattern.
[2018-11-09] MEDS: FERROUS SULFATE PO SCH (16:53)
[2018-11-09] MEDS: PULMICORT 1 MG/2 ML NEB SCH (20:50)
[2018-11-10] MEDS: XOPENEX 1.25 MG NEB SCH ×3 (05:30→21:00)
[2018-11-10] MEDS: PULMICORT 1 MG/2 ML NEB SCH ×2 (05:30→21:00)
[2018-11-10] MEDS: SOLU-CORTEF 250 MG IVP SCH ×3 (05:49→20:22)
[2018-11-10] MEDS: FERROUS SULFATE PO SCH ×2 (05:50→16:58)
[2018-11-10] MEDS ORDERED: NORCO 10-325 PO STA (07:32)
[2018-11-10] MEDS ORDERED: NEURONTIN PO STA (08:00)
[2018-11-10] MEDS: ZITHROMAX PO SCH (08:11)
[2018-11-10] MEDS: ATIVAN PO SCH ×3 (08:11→20:21)
[2018-11-10] MEDS: COZAAR PO SCH (08:11)
[2018-11-10] MEDS: ZOLOFT PO SCH (08:11)
[2018-11-10] MEDS: ASPIRIN EC PO SCH (08:11)
[2018-11-10] MEDS: ROCEPHIN 1 GM PREMIX 1 GM in PREMIX 50 ML D5W 1 BAG IV SCH (08:18)
[2018-11-10] MEDS ORDERED: SERTRALINE HCL 150 MG PO SCH (09:00)
[2018-11-10] MEDS ORDERED: FERROUS SULFATE PO SCH (09:00)
[2018-11-10] MEDS: NORCO 10-325 PO SCH ×2 (11:24→16:59)
[2018-11-10] MEDS: NEURONTIN PO SCH ×2 (11:24→16:59)
[2018-11-11] MEDS: XOPENEX 1.25 MG NEB SCH ×3 (04:45→19:33)
[2018-11-11] MEDS: PULMICORT 1 MG/2 ML NEB SCH ×2 (04:45→19:25)
[2018-11-11] MEDS: NEURONTIN PO SCH ×3 (05:49→17:18)
[2018-11-11] MEDS: FERROUS SULFATE PO SCH ×2 (05:49→17:18)
[2018-11-11] MEDS: NORCO 10-325 PO SCH ×3 (05:49→17:18)
[2018-11-11] MEDS: SOLU-CORTEF 250 MG IVP SCH ×3 (05:49→20:16)
[2018-11-11] MEDS ORDERED: MILK OF MAGNESIA PO STA (08:00)
[2018-11-11] MEDS: ZOLOFT PO SCH (08:15)
[2018-11-11] MEDS: ZITHROMAX PO SCH (08:15)
[2018-11-11] MEDS: ROCEPHIN 1 GM PREMIX 1 GM in PREMIX 50 ML D5W 1 BAG IV SCH (08:15)
[2018-11-11] MEDS: ASPIRIN EC PO SCH (08:15)
[2018-11-11] MEDS: ATIVAN PO SCH ×3 (08:15→20:17)
[2018-11-11] MEDS: COZAAR PO SCH (08:16)
[2018-11-12] MEDS: PULMICORT 1 MG/2 ML NEB SCH (04:50)
[2018-11-12] MEDS: XOPENEX 1.25 MG NEB SCH (04:50)
[2018-11-12 05:29] VITALS: BP 133/72; TEMP 97.9
[2018-11-12] MEDS: FERROUS SULFATE PO SCH (05:29)
[2018-11-12] MEDS: NEURONTIN PO SCH ×2 (05:29→11:08)
[2018-11-12] MEDS: SOLU-CORTEF 250 MG IVP SCH (05:29)
[2018-11-12] MEDS: NORCO 10-325 PO SCH ×3 (05:29→10:08)
[2018-11-12] MEDS: ZOLOFT PO SCH (08:48)
[2018-11-12] MEDS: ATIVAN PO SCH (08:48)
[2018-11-12] MEDS: COZAAR PO SCH (08:48)
[2018-11-12] MEDS: ASPIRIN EC PO SCH (08:49)
[2018-11-12] MEDS: ROCEPHIN 1 GM PREMIX 1 GM in PREMIX 50 ML D5W 1 BAG IV SCH (08:49)
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
--- NOTE | 2018-11-12 08:57 | PN ---
11/09/18: Level 5 11/10/18: Intermediate 11/11/18: Intermediate 11/12/18: D as in discharge MTDD
[2018-11-12] MEDS ORDERED: MIRALAX PO SCH (09:00)
--- NOTE | 2018-11-12 09:00 | PCM.PROG ---
Attending Provider: ATTENDING PROVIDER: Dr. VINNY HUYNH DATE OF SERVICE: 11/12/18 SUBJECTIVE: This 68 year old WHITE/ M was hospitalized 11/09/18 with acute bronchitis and pneumonitis. The patient is breathing a lot better and he is up and about. REVIEW OF SYSTEMS: CONSTITUTIONAL: No night sweats. No fatigue, malaise, lethargy. No fever or chills. HEENT: Eyes: No visual changes. No eye pain. No eye discharge. ENT: No runny nose. No epistaxis. No sinus pain. No odynophagia. No congestion. RESPIRATORY: No cough, no congestion. No hemoptysis. No shortness of breath. CARDIOVASCULAR: No angina symptoms. No CHF symptoms. No atypical chest pain for CAD. No palpitations. No orthopnea.. GASTROINTESTINAL: No abdominal pain. No nausea or vomiting. Mild constipation. No hematemesis. No hematochezia. GENITOURINARY: No urgency. No frequency. No dysuria. No hematuria. No obstructive symptoms. No discharge. No pain. No significant abnormal bleeding. MUSCULOSKELETAL: No musculoskeletal pain; no joint swelling. NEUROLOGICAL: Awake, alert, oriented to time, place and person. No headache. No neck pain. No syncope. No seizures. No dizziness. PSYCHIATRIC: Not anxious. No depression. No suicidal thoughts. No homicidal thoughts. SKIN: No rash. No lesions. No wounds. ENDOCRINE: No unexplained weight loss. No weight gain. HEMATOLOGIC/LYMPHATIC: No anemia. No purpura. No petechiae. No prolonged or excessive bleeding. No palpable lymph nodes. PHYSICAL EXAMINATION: GENERAL: The patient is awake, alert and oriented, sitting in bed in no distress. VITAL SIGNS: Temperature 97.9 F, Pulse 78, Respiratory Rate 18, BP 133/72, Pulse Ox 99% HEENT: Head normocephalic, atraumatic. Eyes: Extraocular muscles are intact. Pupils are equal, round and reactive to light and accommodation. Ears: No lesions. Nose appeared normal. Throat: No exudate or erythema. NECK: Supple. No JVD, no carotid bruit. No lymphadenopathy or thyromegaly. LUNGS: More air entry than before. Clear to auscultation. Percussion note normal. Chest symmetrical. HEART: S1, S2, no S3. No murmurs. No cyanosis or clubbing. No ascites. Pulses: Dorsalis pedis and posterior tibial pulses +1 to +2 both sides. ABDOMEN: Soft. Non-tender. Bowel sounds active. No CVA tenderness. No mass felt. EXTREMITIES: No edema. The patient has left above elbow amputation. NEUROLOGIC: No focal deficit. Cranial nerves II through XII are grossly intact. No headache, no double vision or headache. SKIN: Warm and dry. Intact. Turgor-normal. LYMPHATIC: No palpable lymph nodes/no lymphedema. MUSCULOSKELETAL: Normal joints with no swelling. Muscle tone is normal. LAB REVIEW: 11/12/18 04:51 11/12/18 04:51 11/12/18 04:51: Sodium 136.0, Potassium 4.20, Chloride 100.2, Carbon Dioxide 33.5 H, Anion Gap 6.50, BUN 15.4, Creatinine 0.71, Estimated GFR (MDRD) 110.00, BUN/Creatinine Ratio 21.69, Glucose 113.1 H, Calcium 8.44, Total Bilirubin 0.23 , AST 24.1, ALT 12.5, Alkaline Phosphatase 44.9 L, Total Protein 6.02 L, Albumin 3.51, Globulin 2.51, Albumin/Globulin Ratio 1.39 11/12/18 04:51: WBC 8.08, RBC 3.62 L, Hgb 10.9 L, Hct 33.4 L, MCV 92.3, MCH 30.1 , MCHC 32.6, RDW Coeff of Dominique 12.8, Plt Count 184, Immature Gran % (Auto) 0.2, Neut % (Auto) 80.4, Lymph % (Auto) 12.6, Mora % (Auto) 6.8, Eos % (Auto) 0.0, Baso % (Auto) 0.0, Immature Gran # (Auto) 0.0, Neut # (Auto) 6.5, Lymph # (Auto ) 1.0, Mora # (Auto) 0.6, Eos # (Auto) 0.0, Baso # (Auto) 0.0 ASSESSMENT: Please see below. 1. Acute bronchitis/pneumonitis PLAN: 1. The patient will be sent home on Keflex and Prednisone 10mg twice a day for 5 days. 2. PFT before discharge Plan and coordination of the patient's care discussed in the presence of Rubber Mill Tender and nurse. CONDITION: Stable SCRIBED BY: SHIRAZ MCNEAL Traffic Lieutenant scribed while in presence of service performed by Dr. VINNY HUYNH on 11/12/18 ([id number])
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
--- NOTE | 2018-11-14 09:55 | PN ---
DATE OF SERVICE: 11/09/18 SUBJECTIVE: Mr. Garza was checked this evening. The patient's condition seems to have improved. He says that he is breathing somewhat better. Also explained to him that I will be leaving town early in the morning but I will check him before I go. Dr. Tyler is going to cover him until I come back on Monday afternoon. He agreed for the coverage. Also talked to Dr. Tyler about it. CONDITION: Stable TIME SPENT: More than 30 minutes. Plan and coordination of the patient's care discussed in the presence of nurse. ROBIN
--- NOTE | 2018-11-14 11:05 | PN ---
DATE OF SERVICE: 11/10/18 SUBJECTIVE: Mr. Garza was seen and examined this morning. The patient's condition is stable and he is feeling better. He is under NEBS treatments, steroids and antibiotics. He is coughing much less. REVIEW OF SYSTEMS: CONSTITUTIONAL: No night sweats. No fatigue, malaise, lethargy. No fever or chills. HEENT: Eyes: No visual changes. No eye pain. No eye discharge. ENT: No runny nose. No epistaxis. No sinus pain. No sore throat. No odynophagia. No congestion. RESPIRATORY: No cough, no congestion. No hemoptysis. No shortness of breath. CARDIOVASCULAR: No angina symptoms. No CHF symptoms. No atypical chest pain for CAD. No palpitations. No PND. No orthopnea. GASTROINTESTINAL: No abdominal pain. No nausea or vomiting. No diarrhea or constipation. No hematemesis. No hematochezia. GENITOURINARY: No urgency. No frequency. No dysuria. No hematuria. No obstructive symptoms. No discharge. No pain. No significant abnormal bleeding. MUSCULOSKELETAL: No musculoskeletal pain; no joint swelling. NEUROLOGICAL: No headache. No neck pain. No syncope. No seizures. No dizziness. PSYCHIATRIC: Not anxious. No depression. No suicidal thoughts. No homicidal thoughts. SKIN: No rash. No lesions. No wounds. ENDOCRINE: No unexplained weight loss. No weight gain. HEMATOLOGIC/LYMPHATIC: No anemia. No purpura. No petechiae. No prolonged or excessive bleeding. No palpable lymph nodes. PHYSICAL EXAMINATION: GENERAL: The patient is oriented to time, place and person HEENT: Head normocephalic, atraumatic. Eyes: Extraocular muscles are intact. Pupils are equal, round and reactive to light and accommodation. Ears: No lesions. Nose appeared normal. Throat: No exudate or erythema. NECK: Supple. No JVD, no carotid bruit. No lymphadenopathy or thyromegaly. LUNGS: Decreased but better air entry than yesterday. Percussion note normal. Chest symmetrical. HEART: S1, S2, no S3. No murmurs. No cyanosis or clubbing. No ascites. Pulses: Dorsalis pedis and posterior tibial pulses +1 to +2 bilaterally. ABDOMEN: Soft. Nontender. Bowel sounds active. No CVA tenderness. No mass felt. EXTREMITIES: No edema. Full range of motion of all extremities, equal. NEUROLOGIC: No focal deficit. Cranial nerves II through XII are grossly intact. No headache, no double vision or headache. SKIN: Not dry. Intact. Turgor - normal. LYMPHATIC: No palpable lymph nodes/no lymphedema. MUSCULOSKELETAL: Normal joints with no swelling. Muscle tone is normal. ASSESSMENT: 1. Acute bronchitis 2. COPD, seems to be resolving PLAN: 1. Continue NEBS, steroids and antibiotics. 2. I also explained to him that I will leaving out of town and I will be back on Monday afternoon and until then Dr. Tyler is going to cover me. CONDITION: Stable. TIME SPENT: More than 30 minutes. Plan and coordination of the patient's care discussed in the presence of nurse. ROBIN
--- NOTE | 2018-11-14 11:12 | PN ---
DATE OF SERVICE: 11/11/18 SUBJECTIVE: 68 year old white male hospitalized with acute bronchitis, severe chronic lung disease. The patient says that he is feeling alot better and coughing much less. REVIEW OF SYSTEMS: CONSTITUTIONAL: No night sweats. No fatigue, malaise, lethargy. No fever or chills. HEENT: Eyes: No visual changes. No eye pain. No eye discharge. ENT: No runny nose. No epistaxis. No sinus pain. No sore throat. No odynophagia. No congestion. RESPIRATORY: Mild cough, no congestion. No hemoptysis. No shortness of breath. CARDIOVASCULAR: No angina symptoms. No CHF symptoms. No atypical chest pain for CAD. No palpitations. No PND. No orthopnea. GASTROINTESTINAL: No abdominal pain. No nausea or vomiting. No diarrhea or constipation. No hematemesis. No hematochezia. GENITOURINARY: No urgency. No frequency. No dysuria. No hematuria. No obstructive symptoms. No discharge. No pain. No significant abnormal bleeding. MUSCULOSKELETAL: No musculoskeletal pain; no joint swelling. NEUROLOGICAL: No headache. No neck pain. No syncope. No seizures. No dizziness. PSYCHIATRIC: Not anxious. No depression. No suicidal thoughts. No homicidal thoughts. SKIN: No rash. No lesions. No wounds. ENDOCRINE: No unexplained weight loss. No weight gain. HEMATOLOGIC/LYMPHATIC: No anemia. No purpura. No petechiae. No prolonged or excessive bleeding. No palpable lymph nodes. PHYSICAL EXAMINATION: GENERAL: The patient is oriented to time, place and person. VITAL SIGNS: Temperature 98.4, pulse 70, respiratory rate 15, blood pressure 130/70. HEENT: Head normocephalic, atraumatic. Eyes: Extraocular muscles are intact. Pupils are equal, round and reactive to light and accommodation. Ears: No lesions. Nose appeared normal. Throat: No exudate or erythema. NECK: Supple. No JVD, no carotid bruit. No lymphadenopathy or thyromegaly. LUNGS:Good entry Clear to auscultation. Percussion note normal. Chest symmetrical. HEART: S1, S2, no S3. No murmurs. No cyanosis or clubbing. No ascites. Pulses: Dorsalis pedis and posterior tibial pulses +1 to +2 bilaterally. ABDOMEN: Soft. Nontender. Bowel sounds active. No CVA tenderness. No mass felt. EXTREMITIES: No edema. Full range of motion of all extremities, equal. NEUROLOGIC: No focal deficit. Cranial nerves II through XII are grossly intact. No headache, no double vision or headache. SKIN: Not dry. Intact. Turgor - normal. LYMPHATIC: No palpable lymph nodes/no lymphedema. MUSCULOSKELETAL: Normal joints with no swelling. Muscle tone is normal. LABS: Hgb 11.1, hct 33, WBC 7,300 normal differential, creatinine 0.7, BUN 13, potassium 4.3. ASSESSMENT: 1. Acute bronchitis 2. Severe chronic lung disease PLAN: 1. Continue IV antibiotics, steroids and NEBS 2. The patient is advised to join the pulmonary rehab. Pulmonary rehab discussed in detail CONDITION: Stable. TIME SPENT: More than 30 minutes. Plan and coordination of the patient's care discussed in the presence of nurse. ROBIN
== END 2018-11-12 11:25 | disposition home or self-care (01) | DRG 191 ==
LOC: MEDSURG B 12:16
PROVIDERS: ADMIT Internal Medicine; ATTEND Internal Medicine
DX: J44.9 Chronic obstructive pulmonary disease, unspecified (principal); C34.92 Malignant neoplasm of unspecified part of left bronchus or lung; R06.02 Shortness of breath; I10 Essential (primary) hypertension; D64.9 Anemia, unspecified; E53.8 Deficiency of other specified B group vitamins; M47.9 Spondylosis, unspecified; G62.9 Polyneuropathy, unspecified; F32.9 Major depressive disorder, single episode, unspecified; Z99.81 Dependence on supplemental oxygen
CPT/HCPCS: 36415; 80053; 81001; 82803; 85025; 87040; 87070; 93005; 93010; 94640

== ENCOUNTER 2020-03-31 12:37 | Inpatient (IN) ==
[2020-03-31] MEDS ORDERED: TYLENOL PO PRN (12:58)
[2020-03-31] MEDS ORDERED: ATROPINE SULFATE PFS IVP PRN (12:58)
[2020-03-31] MEDS ORDERED: NITROSTAT SL PRN (12:58)
[2020-03-31] MEDS ORDERED: VISTARIL INJ IM PRN (12:58)
[2020-03-31 13:34] LABS: ABG PH 7.43 (7.35-7.45)
[2020-03-31 13:35] LABS: BASOPHILS # (AUTO) 0.1 K/uL (0-0.2); BASOPHILS % (AUTO) 0.6 % (0.0-3.0); EOSINOPHILS # (AUTO) 0.4 K/ul (0.0-0.7); EOSINOPHILS % (AUTO) 5.2 % (0.0-7.0); HEMATOCRIT 36.4 % (42.0-52.0); HEMOGLOBIN 11.5 g/dl (14.0-18.0); IMMATURE GRANULOCYTE % (AUTO) 0.3 % (0.0-5.0); LYMPHOCYTES # (AUTO) 1.3 K/uL (0.60-3.4); LYMPHOCYTES % (AUTO) 17.1 (10.0-50.0); MEAN CORPUSCULAR HEMOGLOBIN 30.1 pg (27.0-31.0); MEAN CORPUSCULAR HGB CONC 31.6 (31.8-35.4); MEAN CORPUSCULAR VOLUME 95.3 fl (80.0-94.0); MONOCYTES # (AUTO) 0.7 K/uL (0.4-2.0); MONOCYTES % (AUTO) 8.8 (0-10); NEUTROPHILS # (AUTO) 5.3 K/ul (2.0-6.9); PLATELET COUNT 224 10^3/uL (140-440); RDW COEFFICIENT OF VARIATION 12.6 % (11.6-14.8); RED BLOOD COUNT 3.82 10^6/ul (4.70-6.10); WHITE BLOOD COUNT 7.83 K/ul (4.2-10.2)
[2020-03-31 13:47] LABS: ALANINE AMINOTRANSFERASE 9.5 U/L (0-50); ALBUMIN 4.13 g/dL (3.5-5.0); ALKALINE PHOSPHATASE 69.8 U/L (56-119); ASPARTATE AMINO TRANSFERASE 29.3 U/L (17-59); BILIRUBIN,TOTAL 0.54 mg/dL (0.2-1.3); BLOOD UREA NITROGEN 16.4 mg/dL (9-20); CALCIUM 9.52 mg/dL (8.4-10.2); CHLORIDE 89.3 mmol/L (98-107); CREATININE 0.72 mg/dL (0.60-1.10); GLUCOSE 100.1 mg/dL (74-106); POTASSIUM 4.22 mmol/L (3.5-5.1); SODIUM 133.3 mmol/L (134.5-145); TOTAL PROTEIN 7.47 g/dL (6.3-8.2)
[2020-03-31 13:53] LABS: CARBON DIOXIDE 37.7 mmol/L (22-30.0)
[2020-03-31] MEDS: DOXY-100 100 MG in SODIUM CHLORIDE 100 ML IV SCH ×2 (14:39→20:49)
[2020-03-31] MEDS: SOLU-CORTEF 250 MG IVP SCH ×2 (14:59→20:11)
[2020-03-31 15:11] LABS: CREATINE KINASE 30.5 U/L (55-170); TROPONIN I < 0.012 ng/ml (0.0000-0.120)
[2020-03-31 15:16] LABS: BILIRUBIN,URINE 1+ (NEGATIVE); CLARITY,URINE Clear (CLEAR); COLOR,URINE Yellow (YELLOW); GLUCOSE, URINE (UA) Negative (NEGATIVE); KETONES,URINE 2+ (NEGATIVE); LEUKOCYTE ESTERASE ,URINE Negative (NEGATIVE); NITRITE,URINE Negative (NEGATIVE); PH,URINE 7.5 (5-9); PROTEIN,URINE Trace (NEGATIVE); URINE, BLOOD 1+ (NEGATIVE)
[2020-03-31 15:27] LABS: SQUAMOUS EPITHELIAL CELL,UR 0-2 (0-5); URINE WBC, MICROSCOPIC 0-2 (0-2)
--- NOTE | 2020-03-31 16:11 | CT ---
EXAM: CT THORAX HISTORY: Shortness of breath. TECHNIQUE: CT thorax with and without intravenous contrast. Multiplanar images presented. CT scans are performed using dose optimization techniques appropriate to the exam performed. These include a t least one of the following: Automated exposure control, adjustment of the mA and / or kV according to patient size and the use of iterative reconstruction technique. COMPARISON: 03/11/2019 FINDINGS: Normal heart size without pericardial effusion. There is borderline aneurysmal caliber of the ascend ing aorta at 3.7 cm. Moderate atherosclerotic disease is noted. There are a few scattered mediastin al and hilar lymph nodes many of which are calcified. These are small in size and stable. Moderately severe pulmonary emphysema/chronic obstructive pulmonary disease again noted. Redemonstra tion of a mass-like consolidation in the posterior right apex measuring up to 3.3 cm coronal dimensio n, unchanged. There is a mass-like band of consolidation extending from the left hilum to the latera l pleural which is unchanged. These may represent areas of fibrosis. Intermixed neoplasia or pneumo shailesh would be within the differential diagnosis. There is no pleural fluid, central vascular congesti on or pneumothorax. The bones reveal no acute abnormality. IMPRESSION: 1. No overall change since prior study. Moderately severe emphysema. Areas of mass-like consolidat ion bilaterally as described. 2. Borderline aneurysmal caliber of the ascending aorta at 3.7 cm. Moderate atherosclerotic disease .
[2020-03-31] MEDS ORDERED: VENTOLIN HFA (PER PUFF-WITH SPACER) IH PRN (16:45)
[2020-03-31] MEDS: ATIVAN PO SCH ×2 (17:30→20:49)
[2020-03-31] MEDS: NORCO 10-325 PO SCH ×2 (17:30→20:48)
[2020-03-31] MEDS: ROCEPHIN 1 GM/50 ML D5W 1 GM/50 ML BAG IV SCH (17:30)
[2020-03-31] MEDS: NEURONTIN PO SCH ×2 (17:30→20:48)
[2020-03-31] MEDS: FERROUS SULFATE PO SCH (20:49)
[2020-03-31] MEDS: SYMBICORT 160-4.5 MCG INHALER IH SCH (20:50)
[2020-03-31] MEDS ORDERED: SPIRIVA IH SCH (21:00)
[2020-03-31 21:29] LABS: CREATINE KINASE 26.4 U/L (55-170)
[2020-03-31 21:42] LABS: TROPONIN I < 0.012 ng/ml (0.0000-0.120)
[2020-04-01 04:22] LABS: ABG PH 7.33 (7.35-7.45)
[2020-04-01] MEDS: SOLU-CORTEF 250 MG IVP SCH ×3 (04:50→20:31)
[2020-04-01 05:14] LABS: BASOPHILS % (AUTO) 0.3 % (0.0-3.0); HEMATOCRIT 32.2 % (42.0-52.0); HEMOGLOBIN 10.2 g/dl (14.0-18.0); IMMATURE GRANULOCYTE % (AUTO) 0.5 % (0.0-5.0); LYMPHOCYTES # (AUTO) 0.8 K/uL (0.60-3.4); MEAN CORPUSCULAR HEMOGLOBIN 29.8 pg (27.0-31.0); MEAN CORPUSCULAR HGB CONC 31.7 (31.8-35.4); MEAN CORPUSCULAR VOLUME 94.2 fl (80.0-94.0); MONOCYTES # (AUTO) 0.2 K/uL (0.4-2.0); MONOCYTES % (AUTO) 4.3 (0-10); NEUTROPHILS # (AUTO) 2.7 K/ul (2.0-6.9); NEUTROPHILS % (AUTO) 72.9 % (42.2-75.2); PLATELET COUNT 232 10^3/uL (140-440); RDW COEFFICIENT OF VARIATION 12.7 % (11.6-14.8); RED BLOOD COUNT 3.42 10^6/ul (4.70-6.10); WHITE BLOOD COUNT 3.72 K/ul (4.2-10.2)
[2020-04-01 05:30] LABS: ALANINE AMINOTRANSFERASE 9.9 U/L (0-50); ALBUMIN 3.66 g/dL (3.5-5.0); ALKALINE PHOSPHATASE 56.4 U/L (56-119); ASPARTATE AMINO TRANSFERASE 24.5 U/L (17-59); BILIRUBIN,TOTAL 0.38 mg/dL (0.2-1.3); BLOOD UREA NITROGEN 21.3 mg/dL (9-20); CALCIUM 9.18 mg/dL (8.4-10.2); CARBON DIOXIDE 37.4 mmol/L (22-30.0); CHLORIDE 91.3 mmol/L (98-107); CREATININE 0.66 mg/dL (0.60-1.10); GLUCOSE 119.5 mg/dL (74-106); POTASSIUM 4.72 mmol/L (3.5-5.1); SODIUM 131.6 mmol/L (134.5-145); TOTAL PROTEIN 6.58 g/dL (6.3-8.2)
[2020-04-01] MEDS: ROCEPHIN 1 GM/50 ML D5W 1 GM/50 ML BAG IV SCH (08:33)
[2020-04-01] MEDS: NEURONTIN PO SCH ×3 (08:36→20:17)
[2020-04-01] MEDS: COZAAR PO SCH (08:36)
[2020-04-01] MEDS: FERROUS SULFATE PO SCH ×2 (08:36→20:17)
[2020-04-01] MEDS: NORCO 10-325 PO SCH ×3 (08:36→20:17)
[2020-04-01] MEDS: ASPIRIN EC PO SCH (08:36)
[2020-04-01] MEDS: SYMBICORT 160-4.5 MCG INHALER IH SCH ×2 (08:40→20:18)
[2020-04-01] MEDS ORDERED: ZOLOFT PO SCH (09:00)
[2020-04-01] MEDS: SPIRIVA IH SCH (09:39)
[2020-04-01] MEDS: DOXY-100 100 MG in SODIUM CHLORIDE 100 ML IV SCH ×2 (09:39→20:17)
[2020-04-01] MEDS: ATIVAN PO SCH ×2 (09:58→15:25)
[2020-04-01] MEDS ORDERED: ATIVAN PO STA (09:58)
[2020-04-01] MEDS ORDERED: VENTOLIN HFA (PER PUFF-WITH SPACER) IH SCH (10:00)
[2020-04-01] MEDS: ZOLOFT PO SCH (10:04)
--- NOTE | 2020-04-01 10:04 | HP ---
DATE OF SERVICE: 03/31/20 HISTORY OF PRESENT ILLNESS: 70-year-old male who had nosebleed one month ago and went to the emergency room. He has more shortness of breath, coughing with low grade temperature. No signs or symptoms of CHF or CAD. PAST MEDICAL HISTORY: Anemia Chronic respiratory failure COPD-Stage 4 Chronic bronchitis B12 deficiency Cancer of the lung - Dr. Finnegan Neuropathy Depression History of tovar nostrils Cancer of lung - Dr. Finnegan/Dr. 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 HEENT: Sinus drainage. No sore throat. RESPIRATORY: Cough. No hemoptysis. CARDIOVASCULAR: No atypical chest pain for coronary artery disease. No angina, CHF symptoms, palpitations or shortness of breath. GASTROINTESTINAL: No melena or abdominal pain. No GERD. GENITOURINARY: No hematuria, no prostatism, no polyuria. DEAF INTERPRETER: No blackout, no dizziness, no headache, no double vision. MUSCULOSKELETAL: No osteoarthritis pain, no joint swelling. ENDOCRINE: No weight loss, no weight gain. SKIN: Not dry, no rash. PSYCHIATRIC: Not anxious, no depression, no suicidal thoughts, no homicidal thoughts. SOCIAL HISTORY: Chews tobacco. . No alcohol use. MEDICATIONS: [place] 10/325 mg t.i.d. Ativan 0.5 mg one a.m. and one noon and two at h.s. Gabapentin 100 mg t.i.d. Zoloft 100 mg two daily Losartan 100 mg daily Pro-Air INH p.r.n. Symbicort b.i.d. Spiriva b.i.d. 02 Iron 325 mg b.i.d. Nebulizer q.i.d. Prednisone 5 mg daily ALLERGIES: NKDA PHYSICAL EXAMINATION: V/S: Pulse 88, BP 120/72, temperature 99 degrees, 02 sat 89 - the patient is on 02 3L/NC. Unable to weigh. GENERAL APPEARANCE: Oriented times three. HEENT: Normal. NECK: No JVP, no bruits. RESPIRATORY: Severely diminished breath sounds. Bilateral inspiratory and expiratory wheezing. CARDIOVASCULAR: S1, S2, no S3, no murmur. No cyanosis, clubbing. No ascites. GI/ABDOMEN: No tenderness. Bowel sounds are active. EXTREMITIES: No edema, pulses +1, equal. DEAF INTERPRETER: Deep tendon reflexes, sensory, motor and gait all normal. RECTAL/PROSTATE: 12/15/19 (0.5). Colonoscopy - the patient refused. ASSESSMENT: 1. Acute pneumonitis 2. Shortness of breath 3. COPD exacerbation 4. Anemia 5. Chronic respiratory failure 6. COPD, Stage 4 7. Chronic bronchitis 8. B12 deficiency 9. CA of the lung - Dr. Finnegan/Dr. Smith 10. Neuropathy 11. Depression 12. Hypertension 13. Severe DJD spine. 14. Left upper arm amputation 15. PET scan 10/12 16. Steroid dependency 17. Dyslipidemia PLAN: 1. Admit - will do PCR at tent. PUI until results. 2. Routine telemetry orders. 3. No cardiac markers. 4. CBC/CMP now and daily. 5. ABG on 3L now. 6. CT chest with and without contrast. 7. Rocephin 1 gm IV daily. 8. Doxycycline 100 mg IV q.12h. 9. Solu-Cortef 125 mg IV q.8h. 10. Regular diet. 11. 02 as needed. 12. Continue home medications. 13. Patient is DNR. TIME SPENT: More than 70 minutes. MTDD
[2020-04-01] MEDS: VENTOLIN HFA (PER PUFF-WITH SPACER) IH SCH ×2 (13:45→19:15)
[2020-04-01] MEDS ORDERED: ATIVAN PO SCH (21:00)
[2020-04-02 04:59] LABS: BASOPHILS % (AUTO) 0.1 % (0.0-3.0); HEMATOCRIT 30.3 % (42.0-52.0); HEMOGLOBIN 9.8 g/dl (14.0-18.0); IMMATURE GRANULOCYTE % (AUTO) 0.3 % (0.0-5.0); LYMPHOCYTES # (AUTO) 0.9 K/uL (0.60-3.4); LYMPHOCYTES % (AUTO) 12.2 (10.0-50.0); MEAN CORPUSCULAR HEMOGLOBIN 29.9 pg (27.0-31.0); MEAN CORPUSCULAR HGB CONC 32.3 (31.8-35.4); MEAN CORPUSCULAR VOLUME 92.4 fl (80.0-94.0); MONOCYTES # (AUTO) 0.4 K/uL (0.4-2.0); MONOCYTES % (AUTO) 5.3 (0-10); NEUTROPHILS # (AUTO) 6.2 K/ul (2.0-6.9); NEUTROPHILS % (AUTO) 82.1 % (42.2-75.2); PLATELET COUNT 216 10^3/uL (140-440); RDW COEFFICIENT OF VARIATION 12.6 % (11.6-14.8); RED BLOOD COUNT 3.28 10^6/ul (4.70-6.10); WHITE BLOOD COUNT 7.52 K/ul (4.2-10.2)
[2020-04-02] MEDS: SOLU-CORTEF 250 MG IVP SCH (05:05)
[2020-04-02] MEDS: VENTOLIN HFA (PER PUFF-WITH SPACER) IH SCH (05:05)
[2020-04-02 05:15] LABS: ALANINE AMINOTRANSFERASE 10.8 U/L (0-50); ALBUMIN 3.42 g/dL (3.5-5.0); ASPARTATE AMINO TRANSFERASE 27.2 U/L (17-59); BILIRUBIN,TOTAL 0.25 mg/dL (0.2-1.3); BLOOD UREA NITROGEN 25.6 mg/dL (9-20); CALCIUM 9.19 mg/dL (8.4-10.2); CARBON DIOXIDE 35.5 mmol/L (22-30.0); CHLORIDE 92.8 mmol/L (98-107); CREATININE 0.75 mg/dL (0.60-1.10); GLUCOSE 138.3 mg/dL (74-106); POTASSIUM 4.32 mmol/L (3.5-5.1); SODIUM 130.8 mmol/L (134.5-145); TOTAL PROTEIN 6.28 g/dL (6.3-8.2)
[2020-04-02 05:56] VITALS: BP 119/66; TEMP 97.8
[2020-04-02] MEDS: ROCEPHIN 1 GM/50 ML D5W 1 GM/50 ML BAG IV SCH (09:22)
[2020-04-02] MEDS: SPIRIVA IH SCH (09:29)
[2020-04-02] MEDS: SYMBICORT 160-4.5 MCG INHALER IH SCH (09:29)
[2020-04-02] MEDS: ASPIRIN EC PO SCH (09:31)
[2020-04-02] MEDS: ZOLOFT PO SCH (09:31)
[2020-04-02] MEDS: NEURONTIN PO SCH (09:32)
[2020-04-02] MEDS: COZAAR PO SCH (09:32)
[2020-04-02] MEDS: NORCO 10-325 PO SCH (09:32)
[2020-04-02] MEDS: FERROUS SULFATE PO SCH (09:32)
--- NOTE | 2020-04-02 09:54 | PCM.PROG ---
Attending Provider: ATTENDING PROVIDER: Dr. VINNY PITT This patient is seen with Rachael Oliver, Nurse Practitioner. DATE OF SERVICE: 04/02/20 SUBJECTIVE: This 70 year old /WHITE M was hospitalized 03/31/20. The patient is resting comfortably. Shortness of breath has improved. He is less anxious and ready to go home. CT showed no acute process. He has severe COPD which is oxygen and steroid dependent. He no longer wants to see Dr. Finnegan or Calvin given history. REVIEW OF SYSTEMS: CONSTITUTIONAL: No night sweats. No fatigue, malaise, lethargy. No fever or chills. Weakness. HEENT: Eyes: No visual changes. No eye pain. No eye discharge. ENT: No runny nose. No epistaxis. No sinus pain. No odynophagia. No congestion. RESPIRATORY: No cough, no congestion. No hemoptysis. Shortness of breath. CARDIOVASCULAR: No angina symptoms. No CHF symptoms. No atypical chest pain for CAD. No palpitations. No orthopnea.. GASTROINTESTINAL: No abdominal pain. No nausea or vomiting. No diarrhea or constipation. No hematemesis. No hematochezia. GENITOURINARY: No urgency. No frequency. No dysuria. No hematuria. No obstructive symptoms. No discharge. No pain. No significant abnormal bleeding. MUSCULOSKELETAL: No musculoskeletal pain; no joint swelling. NEUROLOGICAL: Awake, alert, oriented to time, place and person. No headache. No neck pain. No syncope. No seizures. No dizziness. PSYCHIATRIC: Anxious. No depression. No suicidal thoughts. No homicidal thoughts. SKIN: No rash. No lesions. No wounds. ENDOCRINE: No unexplained weight loss. No weight gain. HEMATOLOGIC/LYMPHATIC: No anemia. No purpura. No petechiae. No prolonged or excessive bleeding. No palpable lymph nodes. PHYSICAL EXAMINATION: GENERAL: The patient is awake, alert and oriented, sitting in bed in no distress. VITAL SIGNS: Temperature 97.8 F, Pulse 60, Respiratory Rate 16, BP 119/66, Pulse Ox 98% HEENT: Head normocephalic, atraumatic. Eyes: Extraocular muscles are intact. Pupils are equal, round and reactive to light and accommodation. Ears: No lesions. Nose appeared normal. Throat: No exudate or erythema. NECK: Supple. No JVD, no carotid bruit. No lymphadenopathy or thyromegaly. LUNGS: Diminished breath sounds. Clear to auscultation. Percussion note normal. Chest symmetrical. HEART: S1, S2, no S3. No murmurs. No cyanosis or clubbing. No ascites. Pulses: Dorsalis pedis and posterior tibial pulses +1 to +2 both sides. ABDOMEN: Soft. Non-tender. Bowel sounds active. No CVA tenderness. No mass felt. EXTREMITIES: No edema. Full range of motion of all extremities, equal. NEUROLOGIC: No focal deficit. Cranial nerves II through XII are grossly intact. No headache, no double vision or headache. SKIN: Not dry. Intact. Turgor-normal. LYMPHATIC: No palpable lymph nodes/no lymphedema. MUSCULOSKELETAL: Normal joints with no swelling. Muscle tone is normal. LAB REVIEW: 04/02/20 04:50 04/02/20 04:50 04/02/20 04:50: Sodium 130.8 L, Potassium 4.32, Chloride 92.8 L, Carbon Dioxide 35.5 H, Anion Gap 6.82, BUN 25.6 H, Creatinine 0.75, Estimated GFR (MDRD) 103.00, BUN/Creatinine Ratio 34.13, Glucose 138.3 H, Calcium 9.19, Total Bilirubin 0.25, AST 27.2, ALT 10.8, Alkaline Phosphatase 61.0, Total Protein 6.28 L, Albumin 3.42 L, Globulin 2.86, Albumin/Globulin Ratio 1.19 04/02/20 04:50: WBC 7.52, RBC 3.28 L, Hgb 9.8 L, Hct 30.3 L, MCV 92.4, MCH 29.9, MCHC 32.3, RDW Coeff of Dominique 12.6, Plt Count 216, Immature Gran % (Auto) 0.3, Neut % (Auto) 82.1 H, Lymph % (Auto) 12.2, [place] % (Auto) 5.3, Eos % (Auto) 0.0, Baso % (Auto) 0.1, Neut # (Auto) 6.2, Lymph # (Auto) 0.9, [place] # (Auto) 0.4, Eos # (Auto) 0.0, Baso # (Auto) 0.0, Immature Gran # (Auto) 0.0 ASSESSMENT: Please see below. 1. Shortness of breath 3. Acute COPD exacerbation 3. Severe COPD O2 and steroid dependent 4. Chronic anemia 5. Anxiety 6. Hypertension PLAN: 1. Discharge home 2. Kelfex 500mg TID for 7 days 3. Prednisone 30mg BID for 5 days then daily for 3 days 4. We will see about portable oxygen concentrator 5. Continue inhaler and albuterol NEBs PROGNOSIS: Poor given advancing condition of COPD. The patient refuses to see Dr. Finnegan Plan and coordination of the patient's care discussed in the presence of Chief Investigator and nurse. SCRIBED BY: Dionisio GIRON scribed while in presence of service performed by Dr. Pitt/Rachael Oliver APRN on 04/02/20 ([id number])
[2020-04-02] MEDS: ATIVAN PO SCH (10:00)
[2020-04-02] MEDS: DOXY-100 100 MG in SODIUM CHLORIDE 100 ML IV SCH (10:35)
--- NOTE | 2020-04-02 12:10 | CM.DICTOOL ---
ADMISSION: 03/31/20 12:37 DISCHARGE: APRIL 02, 2020 DATE OF SERVICE: 04/02/20 FINAL DIAGNOSIS ACUTE PNEUMONITIS COPD EXACERBATION HX: ANEMIA CHRONIC RESPIRATORY FAILURE COPD- STAGE 4 CHRONIC BRONCHITIS B 12 DEFICIENCY CANCER OF THE LUNG - DR. WALLER/DR. 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 HYPERTENSION SEVERE DJD SPINE LT UPPER ARM AMPUTATION PET SCAN 10/12 STERIOD DEPENDENCY DYSLIPIDEMIA PAST SURGICAL HISTORY: LT ARM AMPUTATION LAST VITALS Temp Pulse Resp BP Pulse Ox 97.8 F 60 16 119/66 98 04/02/20 05:53 04/02/20 05:53 04/02/20 05:53 04/02/20 05:53 04/02/20 10:00 TAKE THESE MEDICATIONS AT HOME Hydrocodone Bitart/Acetaminophen (Hydrocodone Bit/Acetaminophen 10/325 Mg Tablet) 1 tab PO TID [facility] Last Admin: 04/02/20 09:32 Dose: 1 tab Documented by: Albuterol Sulfate (Albuterol Sulfate (Ventolin Hfa) 18 Gm 1 Puff With Spacer) 2 puff IH QID PRN Last Admin: 04/02/20 05:05 Dose: 2 puff Documented by: Budesonide/Formoterol Fumarate (Budesonide/Formoterol Fumarate 160/4.5 Mcg Inhaler) 2 puff IH BID [facility] Last Admin: 04/02/20 09:29 Dose: 1 puff Documented by: Ferrous Sulfate (Ferrous Sulfate 324 Mg Tablet.) 324 mg PO BID [facility] Last Admin: 04/02/20 09:32 Dose: 324 mg Documented by: Gabapentin (Gabapentin 100 Mg Capsule) 100 mg PO TID [facility] Last Admin: 04/02/20 09:32 Dose: 100 mg Documented by: Lorazepam (Lorazepam 0.5 Mg Tablet) 0.5 mg PO 0900,1500 [facility] Last Admin: 04/02/20 10:00 Dose: 0.5 mg Documented by: Lorazepam (Lorazepam 0.5 Mg Tablet) 1 mg PO BEDTIME [facility] Last Admin: 04/01/20 20:17 Dose: 1 mg Documented by: Losartan Potassium (Losartan Potassium 100 Mg Tablet) 100 mg PO DAILY [facility] Last Admin: 04/02/20 09:32 Dose: 100 mg Documented by: Sertraline HCl (Sertraline Hcl 50 Mg Tablet) 200 mg PO DAILY [facility] Last Admin: 04/02/20 09:31 Dose: 200 mg Documented by: Tiotropium [place] (Tiotropium [place] 18 Mcg Cap.W.Dev) 1 cap IH DAILY [facility] Last Admin: 04/02/20 09:29 Dose: 1 cap Documented by: KEFLEX 500 MG PO TID X 7 DAYS ( START 04/03/2020) -- ( NEW) PREDNISONE 20 MG PO BID X 5 DAYS, THEN 20 MG PO DAILY X 3 DAYS, THEN RETURN TO USUAL 5 MG DAILY DOSE ALL WITH FOOD -- ( CHANGED) ALBUTEROL NEBULIZERS 0.083 %/ 2.5 MG TID ALLERGIES No Known Allergies Allergy (Verified 03/06/20 10:33) DISCONTINUED MEDICATIONS NONE NEW PRESCRIPTIONS: KEFLEX 500 MG PO TID X 7 DAYS (START 04/03/2020) PREDNISONE 20 MG PO BID X 5 DAYS, THEN 20 MG PO DAILY X 3 DAYS, THEN RETURN TO USUAL 5 MG DAILY DOSE ALL WITH FOOD (START THIS PM) ALBUTEROL NEBULIZERS 0.083 %/ 2.5 MG TID ( START THIS PM) SMOKING: N/A DISEASE SPECIFIC EDUCATION: COPD OXYGEN NO NSAIDS COVID 19 LAB REVIEW: 04/02/20 04:50 04/02/20 04:50 04/02/20 04:50: Sodium 130.8 L, Potassium 4.32, Chloride 92.8 L, Carbon Dioxide 35.5 H, Anion Gap 6.82, BUN 25.6 H, Creatinine 0.75, Estimated GFR (MDRD) 103.00, BUN/Creatinine Ratio 34.13, Glucose 138.3 H, Calcium 9.19, Total Bilirubin 0.25, AST 27.2, ALT 10.8, Alkaline Phosphatase 61.0, Total Protein 6.28 L, Albumin 3.42 L, Globulin 2.86, Albumin/Globulin Ratio 1.19 04/02/20 04:50: WBC 7.52, RBC 3.28 L, Hgb 9.8 L, Hct 30.3 L, MCV 92.4, MCH 29.9, MCHC 32.3, RDW Coeff of Dominique 12.6, Plt Count 216, Immature Gran % (Auto) 0.3, Neut % (Auto) 82.1 H, Lymph % (Auto) 12.2, [place] % (Auto) 5.3, Eos % (Auto) 0.0, Baso % (Auto) 0.1, Neut # (Auto) 6.2, Lymph # (Auto) 0.9, [place] # (Auto) 0.4, Eos # (Auto) 0.0, Baso # (Auto) 0.0, Immature Gran # (Auto) 0.0 PLAN: DISCHARGE HOME TODAY: March ACTIVITY: UP IN HOME AND WALK FREQUENTLY. CHANGE POSITIONS SLOWLY STAY HOME FOR NOW UNTIL MD FOLLOW-UP APPOINTMENT RECOGNIZE AND FOLLOW SOCIAL/PHYSICAL DISTANCING WHEN IN PUBLIC OXYGEN: 1.5 L/M AT REST TO KEEP O2 SATS BETWEEN 90% TO 95% DISCUSS WITH [employer] PORTABLE CONCENTRATOR VERSES HOME CONCENTRATOR FOR OXY-GO PORTABLE CONCENTRATOR, FAMILY TO DETERMINE ARRANGEMENTS DIET: REGULAR NO NSAIDS MD FOLLOW UP: SEE DR. HUYNH/ JOI BEJARANO APRN/ JARRETT GRAY APRN IN THE OFFICE APRIL 07, 2020 @ [phone] CALL MD OFFICE IF ANY CONCERNS OR QUESTIONS [phone]. IF AFTER HOURS GO TO [facility] CODE STATUS: DO NOT INTUBATE, CPR ONLY MR. PRUITT REMAINS ALERT AND ORIENTED X 4. IS FORGETFUL WITH CERTAIN DETAILS. HE IS UP INDEPENDENTLY AND STEADY. HIS LUNGS ARE DIMINISHED AND HAS A OCCASIONAL NON-PRODUCTIVE COUGH. MANAGING WITH 1.5 L/M PER N/C AT REST. HE REFUSES ANY FURTHER FOLLOW UP WITH DR. WALLER OR DR. ORTEGA RELATED TO HISTORY OF LUNG CA. NUTRITIONAL AND FLUID INTAKE FAIR TO GOOD. IS CONTINENT OF BOWEL AND BLADDER. LAST BM:04/01/2020. SKIN INTAKE. NO ACUTE PAIN NOTED OR REPORTED. AND MRS PRUITT DOES NOT WANT HOME HEALTH AT THIS TIME. MD JOI WILL APRN ALYCE HANNAN, APRN
--- NOTE | 2020-04-03 12:59 | ECHO2D ---
Date of Exam: 04/02/2020 Ordering Physician: DR. VINNY HUYNH Room #: [id number] Reason for Echo: SOA, HTN, EVALUATE LEFT VENTRICULAR FUNCTION M-Mode Normal Adult Results LV Dimensions Normal Adult Results AoV Opening excursions >1.6 1.4 LVEDD-base- 3.5-5.8 5.1 Ao root dimensions 2.0-3.7 3.6 LVESD-base- 3.1-4.6 L. Atrium dimensions 1.9-3.8 3.6 Post. Wall thickness 0.8-1.1 1.1 IV septum (thickness) 0.7-1.2 1.2 Post. Wall excursion 0.72-1.3 NORMAL Septal motion NORMAL Systolic motion R. Ventricular cavity 1.5-2.0 4.0 LVEF 60% 63% Paradoxical septal wall motion NORMAL 2-D : 2-D M Mode Echocardiogram was performed using apical four chamber and left parasternal long and short axis views. Mitral and tricuspid valves appear to be normal. CALCIFIC AORTIC VALVE. Contractility of the left ventricle seems to be normal, so is the cavity size. Left atrial cavity size and aortic root appear to be normal. There is no pericardial effusion. There is no thrombus noted in the left ventricle or left atrial cavity. No mitral valve prolapse noted. ENLARGED RIGHT VENTRICLE CAVITY M-MODE: MV: NORMAL AV: CALCIFIC AORTIC VALVE TV: NORMAL PV: NORMAL CHAMBER SIZE: ENLARGED RIGHT VENTRICLE CAVITY WALL MOTION: NORMAL PERICARDIUM: NORMAL INTERPRETATION: 1. BORDERLINE LEFT VENTRICULAR HYPERTROPHY 2. ENLARGED RIGHT VENTRICLE CAVITY 3. NORMAL LEFT VENTRICLE CONTRACTILITY MTDD
--- NOTE | 2020-04-06 13:47 | PN ---
DATE OF SERVICE: 04/02/2020 SUBJECTIVE: The patient was seen and examined with the Nurse Practitioner. The patient's condition has improved. He wants to go home. The patient's had an echocardiogram done which showed normal LV contractility and enlarged RV cavity. The patient's cardiovascular status is stable. He doesn't want to be followed by any pulmonary physician. He has history of C of the lungs. He continues to smoke. PROGNOSIS: Poor CONDITION: Stable for now. TIME SPENT: More than 30 minutes. Plan and coordination of the patient's care discussed in the presence of nurse. ROBIN
--- NOTE | 2020-04-06 13:47 | PN ---
03/31/2020: Level 5 04/01/2020: Intermediate 04/02/2020: D as in discharge MTDD
--- NOTE | 2020-04-06 14:48 | PN ---
DATE OF SERVICE: 04/01/2020 SUBJECTIVE: 70 year old white male hospitalized with acute pneumonitis with increasing shortness of breath. His condition is slowly improved. He is afebrile. REVIEW OF SYSTEMS: CONSTITUTIONAL: No night sweats. No fatigue, malaise, lethargy. No fever or chills. HEENT: Eyes: No visual changes. No eye pain. No eye discharge. ENT: No runny nose. No epistaxis. No sinus pain. No sore throat. No odynophagia. No congestion. RESPIRATORY: No cough, no congestion. No hemoptysis. Shortness of breath much less than what it was yesterday. CARDIOVASCULAR: No angina symptoms. No CHF symptoms. No atypical chest pain for CAD. No palpitations. No PND. No orthopnea. GASTROINTESTINAL: No abdominal pain. No nausea or vomiting. No diarrhea or constipation. No hematemesis. No hematochezia. Appetite has improved. GENITOURINARY: No urgency. No frequency. No dysuria. No hematuria. No obstructive symptoms. No discharge. No pain. No significant abnormal bleeding. MUSCULOSKELETAL: No musculoskeletal pain; no joint swelling. NEUROLOGICAL: No headache. No neck pain. No syncope. No seizures. No dizziness. PSYCHIATRIC: Not anxious. No depression. No suicidal thoughts. No homicidal thoughts. SKIN: No rash. No lesions. No wounds. ENDOCRINE: No unexplained weight loss. No weight gain. HEMATOLOGIC/LYMPHATIC: No anemia. No purpura. No petechiae. No prolonged or excessive bleeding. No palpable lymph nodes. PHYSICAL EXAMINATION: VITAL SIGNS: Temperature 97.8, pulse 67, respiratory rate 18, blood pressure 127/70 and pulse ox 97% on 2 liters. HEENT: Head normocephalic, atraumatic. Eyes: Extraocular muscles are intact. Pupils are equal, round and reactive to light and accommodation. Ears: No lesions. Nose appeared normal. Throat: No exudate or erythema. NECK: Supple. No JVD, no carotid bruit. No lymphadenopathy or thyromegaly. LUNGS: Decreased breath sounds. Clear to auscultation. Percussion note normal. Chest symmetrical. HEART: S1, S2, no S3. No murmurs. No cyanosis or clubbing. No ascites. Pulses: Dorsalis pedis and posterior tibial pulses +1 to +2 bilaterally. ABDOMEN: Soft. Nontender. Bowel sounds active. No CVA tenderness. No mass felt. EXTREMITIES: No edema. Full range of motion of all extremities, equal. NEUROLOGIC: No focal deficit. Cranial nerves II through XII are grossly intact. No headache, no double vision or headache. SKIN: Not dry. Intact. Turgor - normal. LYMPHATIC: No palpable lymph nodes/no lymphedema. MUSCULOSKELETAL: Normal joints with no swelling. Muscle tone is normal. ASSESSMENT: 1. Severe Chronic lung disease with acute pneumonitis/bronchitis PLAN: 1. Needs to continue steroids and NEBS and antibiotics 2. Continue to monitor oxygen saturation 3. Cardiovascular status is stable with no evidence of CHF or coronary insufficiency. 4. The patient's arterial blood gasses done today showed pH 7.33 with pO2 95, with PcO2 94, 96% saturation ADDENDUM: The patient's blood gasses done this morning showed mild respiratory acidosis which was partially compensated with pCO2. Called the cardiopulmonary department and advised them cut down on oxygen which is being given at 2 liters. Advised to give it at 1.5 liters. Keep the saturation between 90-93%. CONDITION: Stable. TIME SPENT: More than 30 minutes. Plan and coordination of the patient's care discussed in the presence of nurse. ROBIN
--- NOTE | 2020-04-06 14:51 | PN ---
DATE OF SERVICE: 03/31/2020 SUBJECTIVE: The patient was seen and examined with the Nurse Practitioner. History and Physical was done along with Nurse Practitioner. Management was discussed. The patient has severe hypoxemia which is chronic. He is in chronic respiratory failure with acute bronchitis. He will be given Rocephin IV along with steroids and inhalers. CONDITION: Stable. PROGNOSIS: Poor TIME SPENT: More than 30 minutes. Plan and coordination of the patient's care discussed in the presence of nurse. ROBIN
--- NOTE | 2020-04-07 11:17 | DS ---
DATE OF SERVICE: 04/02/20 FINAL DIAGNOSIS: 1. ACUTE PNEUMONITIS 2. COPD EXACERBATION HX: 3. ANEMIA 4. CHRONIC RESPIRATORY FAILURE 5. COPD-STAGE 4 6. CHRONIC BRONCHITIS 7. B12 DEFICIENCY 8. CANCER OF THE LUNG - DR. WALLER/DR. SMITH- REFUSES FURTHER F/U 9. NEUROPATHY 10. DEPRESSION 11. HX OF GALVEZ IN NOSTRILS 12. HYPERTENSION 13. SEVERE DJD SPINE 14. LT UPPER ARM AMPUTATION 15, PET SCAN 10/12 16. STEROID DEPENDENCY 17. DYSLIPIDEMIA PAST SURGICAL HISTORY: 18. LT ARM AMPUTATION LAST VITALS Temp Pulse Resp BP Pulse Ox 97.8 F 60 16 119/66 98 04/02/20 05:53 04/02/20 05:53 04/02/20 05:53 04/02/20 05:53 04/02/20 10:00 DISCHARGE INSTRUCTIONS: 1. DISCHARGE HOME TODAY: APRIL 02, 2020 2. OXYGEN: 1.5 L/M AT REST TO KEEP O2 SATS BETWEEN 90% TO 95%; DISCUSS WITH [facility] PORTABLE CONCENTRATOR VERSES HOME CONCENTRATOR, FOR OXY-GO PORTABLE CONCENTRATOR, FAMILY TO DETERMINE ARRANGEMENTS 3. NO NSAIDS 4. MD FOLLOW UP: SEE DR. HUYNH/ JOI BEJARANO APRN/JARRETT GRAY APRN IN THE OFFICE APRIL 07, 2020 @ 1177. CALL MD OFFICE IF ANY CONCERNS OR QUESTIONS [phone]. IF AFTER HOURS GO TO [facility]. MEDICATIONS AT DISCHARGE: Hydrocodone Bitart/Acetaminophen (Hydrocodone Bit/Acetaminophen 10/325 Mg Tablet) 1 tab PO TID [facility] Last Admin: 04/02/20 09:32 Dose: 1 tab Documented by: Albuterol Sulfate (Albuterol Sulfate (Ventolin Hfa) 18 Gm 1 Puff With Spacer) 2 puff IH QID PRN Last Admin: 04/02/20 05:05 Dose: 2 puff Documented by: Budesonide/Formoterol Fumarate (Budesonide/Formoterol Fumarate 160/4.5 Mcg Inhaler) 2 puff IH BID [facility] Last Admin: 04/02/20 09:29 Dose: 1 puff Documented by: Ferrous Sulfate (Ferrous Sulfate 324 Mg Tablet.) 324 mg PO BID [facility] Last Admin: 04/02/20 09:32 Dose: 324 mg Documented by: Gabapentin (Gabapentin 100 Mg Capsule) 100 mg PO TID [facility] Last Admin: 04/02/20 09:32 Dose: 100 mg Documented by: Lorazepam (Lorazepam 0.5 Mg Tablet) 0.5 mg PO 0900,1500 [facility] Last Admin: 04/02/20 10:00 Dose: 0.5 mg Documented by: Lorazepam (Lorazepam 0.5 Mg Tablet) 1 mg PO BEDTIME [facility] Last Admin: 04/01/20 20:17 Dose: 1 mg Documented by: Losartan Potassium (Losartan Potassium 100 Mg Tablet) 100 mg PO DAILY [facility] Last Admin: 04/02/20 09:32 Dose: 100 mg Documented by: Sertraline HCl (Sertraline Hcl 50 Mg Tablet) 200 mg PO DAILY [facility] Last Admin: 04/02/20 09:31 Dose: 200 mg Documented by: Tiotropium [place] (Tiotropium [place] 18 Mcg Cap.W.Dev) 1 cap IH DAILY [facility] Last Admin: 04/02/20 09:29 Dose: 1 cap Documented by: KEFLEX 500 MG PO TID X 7 DAYS ( START 04/03/2020) -- ( NEW) PREDNISONE 20 MG PO BID X 5 DAYS, THEN 20 MG PO DAILY X 3 DAYS, THEN RETURN TO USUAL 5 MG DAILY DOSE ALL WITH FOOD -- ( CHANGED) ALBUTEROL NEBULIZERS 0.083 %/ 2.5 MG TID NEW PRESCRIPTIONS: KEFLEX 500 MG PO TID X 7 DAYS (START 04/03/2020) PREDNISONE 20 MG PO BID X 5 DAYS, THEN 20 MG PO DAILY X 3 DAYS, THEN RETURN TO USUAL 5 MG DAILY DOSE ALL WITH FOOD (START THIS PM) ALBUTEROL NEBULIZERS 0.083 %/ 2.5 MG TID ( START THIS PM) DISCONTINUED MEDICATIONS: NONE DIET INSTRUCTIONS: REGULAR ACTIVITY: UP IN HOME AND WALK FREQUENTLY CHANGE POSITIONS SLOWLY STAY HOME FOR NOW UNTIL MD FOLLOW-UP APPOINTMENT RECOGNIZE AND FOLLOW SOCIAL/PHYSICAL DISTANCING WHEN IN PUBLIC SMOKING: N/A DISEASE SPECIFIC EDUCATION: COPD OXYGEN NO NSAIDS COVID 19 HOSPITAL COURSE: The patient was a direct admit from the office with worsening shortness of breath, chronic respiratory failure, severe COPD with acute COPD exacerbation. CT of the chest showed no new acute process. He was admitted. ABGs initially were on 3L. p02 was above 100. He was turned down to 2L and has tolerated this well. I do believe a lot of his shortness of breath is due to anxiety. He does have severe COPD however his being short of breath makes him more anxious which then in turn makes him feel more short of breath. His respiratory failure is stable. Again, there was no acute process. He was initially placed on Rocephin 1 gm IV daily and Doxycycline 100 mg IV q.12 hr along with Solu-Medrol 125 mg IV q.8hr. He did report feeling less short of breath after the first 24 hours. Covid test was negative. He has been up and about in the room today, feeling much better. Again, I do believe a lot of his problem is anxiety. He states he is ready to go home. Will discharge him with Keflex 500 t.i.d. for the next 7 days along with Prednisone 20 daily for the next 7 days. He will then resume his regular maintenance dose of Prednisone. It is to be noted there are some areas of chronic changes, possible malignancy to be noted on his CT scan. These again are unchanged. We had a lengthy discussion with both he and his regarding his respiratory status. He no longer wishes to see Dr. Waller or to see Dr. Smith. He is a DNR. He states he is ready to go when it is his time. He is interested in a portable oxygen concentrator. Case Management will be doing that with him. I did have a PT/OT consult for energy conservation due to his shortness of breath. He refuses Home Health. Will discharge him home in stable condition and followup with him in the office next week or the next. His prognosis was discussed in detail. It is poor, given the severity of his COPD and the natural disease process. TIME SPENT: More than 60 minutes. ROBIN
== END 2020-04-02 13:43 | disposition home or self-care (01) | DRG 189 ==
LOC: SCU 12:37 → MEDSURG A 14:29
PROVIDERS: ADMIT Internal Medicine; ATTEND Internal Medicine

== ENCOUNTER 2020-07-27 10:28 | Inpatient (IN) ==
[2020-07-27] MEDS ORDERED: ATROVENT HFA INHALER (PER PUFF-WITH SPACER) IH ONE (10:48)
[2020-07-27] MEDS ORDERED: SOLU-MEDROL 125 MG IVP ONE (10:48)
[2020-07-27] MEDS ORDERED: VENTOLIN HFA (PER PUFF-WITH SPACER) IH ONE (10:48)
[2020-07-27 11:10] LABS: BASOPHILS % (AUTO) 0.4 % (0.0-3.0); EOSINOPHILS # (AUTO) 0.2 K/ul (0.0-0.7); EOSINOPHILS % (AUTO) 3.1 % (0.0-7.0); HEMATOCRIT 35.3 % (42.0-52.0); HEMOGLOBIN 11.6 g/dl (14.0-18.0); IMMATURE GRANULOCYTE % (AUTO) 0.4 % (0.0-5.0); LYMPHOCYTES # (AUTO) 1.5 K/uL (0.60-3.4); LYMPHOCYTES % (AUTO) 19.7 (10.0-50.0); MEAN CORPUSCULAR HEMOGLOBIN 29.7 pg (27.0-31.0); MEAN CORPUSCULAR HGB CONC 32.9 (31.8-35.4); MEAN CORPUSCULAR VOLUME 90.3 fl (80.0-94.0); MONOCYTES # (AUTO) 0.7 K/uL (0.4-2.0); MONOCYTES % (AUTO) 8.8 (0-10); NEUTROPHILS # (AUTO) 5.3 K/ul (2.0-6.9); NEUTROPHILS % (AUTO) 67.6 % (42.2-75.2); PLATELET COUNT 215 10^3/uL (140-440); RDW COEFFICIENT OF VARIATION 13.4 % (11.6-14.8); RED BLOOD COUNT 3.91 10^6/ul (4.70-6.10); WHITE BLOOD COUNT 7.81 K/ul (4.2-10.2)
[2020-07-27 11:12] LABS: ABG O2 HGB 95.2 % (95-100); ABG PH 7.41 (7.35-7.45); BEecf 5.8 (-2.0-3.0); HCO3 30.4 (21-28); MetHb 0.7 (0-1.5); TCO2 31.9 (19-24); sO2 98.1 % (94-98); tHb 11.7 g/dl (11.7-17.4)
[2020-07-27 11:22] LABS: ALANINE AMINOTRANSFERASE 10.1 U/L (0-50); ALBUMIN 3.51 g/dL (3.5-5.0); ALKALINE PHOSPHATASE 63.5 U/L (56-119); ASPARTATE AMINO TRANSFERASE 25.5 U/L (17-59); BILIRUBIN,TOTAL 0.55 mg/dL (0.2-1.3); BLOOD UREA NITROGEN 13.7 mg/dL (9-20); CALCIUM 8.92 mg/dL (8.4-10.2); CARBON DIOXIDE 30.7 mmol/L (22-30.0); CHLORIDE 99.2 mmol/L (98-107); CREATININE 0.76 mg/dL (0.60-1.10); GLUCOSE 98.5 mg/dL (74-106); POTASSIUM 3.84 mmol/L (3.5-5.1); SODIUM 132.2 mmol/L (134.5-145); TOTAL PROTEIN 6.5 g/dL (6.3-8.2)
[2020-07-27 11:34] LABS: TROPONIN I 0.046 ng/ml (0.0000-0.120)
--- NOTE | 2020-07-27 12:27 | ED.PDOC ---
General ED Provider: Dr. NICHO COLLINS MD Chief Complaint: Shortness of Air Stated Complaint: increasing SOB x 3 days. pt has the COPD, but is usually more functional than he has been x 3-4 days. no fever Time Seen by Provider: 07/27/20 10:33 Mode of Arrival: Ambulance Information Source: Patient and EMT Exam Limitations: No limitations Primary Care Provider: VINNY HUYNH Nursing and Triage Documentation Reviewed and Agree: Yes Does patient meet sepsis criteria?: No System Inflammatory Response Syndrome: Not Applicable Sepsis Protocol: For patient's 13 years and over: Temp is 96.8 and below OR 101 and greater Pulse >90 BPM Resp >20/minute Acutely Altered Mental Status Are patient's symptoms suggestive of a new infection, such as: -Pneumonia -Skin, Soft Tissue -Endocarditis -UTI -Bone, Joint Infection -Implantable Device -Acute Abdominal Infection -Wound Infection -Meningitis -Blood Stream Catheter Infection -Unknown Respiratory Complaint Exam Shortness of Air Complaint/Exam Onset/Duration: 3 days Symptoms Are: Still present Timing: Constant Initial Severity: Mild Current Severity: Mild Character: Reports Dyspnea at rest and Dyspnea on exertion Aggravating: Reports None Alleviating: Reports None Associated Signs and Symptoms: Reports Cough and Wheezing; Denies Chest pain with cough, Chest pain, Fever, Chills, Diaphoresis, Nasal congestion, Dizziness, Calf pain, Calf swelling, Edema, Rapid breathing, Labored breathing and Decrease d intake History of Healthcare-Acquired Pneumonia: No Home Oxygen Use: Yes Recent Echo/LV Function: No Respiratory Distress: Mild Stridor Present: No Tracheal Deviation: No Subcutaneous Emphysema: No Accessory Muscle Use: No Retractions: Not Present Diminished Breath Sounds: No Unable to Speak Full Sentences: No Fatigue: No Leg Swelling: No Differential Diagnoses: Airway Obstruction, Foreign body and Bronchospasm Quality Indicators for AMI: EKG in 10min. Review of Systems Review Of Systems Constitutional: Reports No symptoms Eyes: Reports No symptoms Ears, Nose, Mouth, Throat: Reports No symptoms Respiratory: Reports Short of air Cardiac: Reports No symptoms GI: Reports No symptoms and Nausea : Reports No symptoms Musculoskeletal: Reports No symptoms Skin: Reports No symptoms Neurological: Reports No symptoms Endocrine: Reports No symptoms Hematologic/Lymphatic: Reports No symptoms All Other Systems: Reviewed and Negative FOR[facility]LY [facility] Medical History Anemia B12 deficiency Chronic bronchitis Chronic respiratory failure Degenerative joint disease (DJD) of lumbar spine Depression Dyslipidemia HTN (hypertension) Lung cancer Neuropathy Stage 4 very severe COPD by GOLD classification Steroid dependence Upper extremity amputee Family History BROTHER CHF (congestive heart failure) Social History Smoking and tobacco status: Former smoker Tobacco: How many years used: 60 Smokeless tobacco user: chewing tobacco Passive smoking exposure: No How long ago did patient quit smokin years Quit status: quit date established Second hand smoke exposure: No Alcohol intake: former Year quit: 2013 Counseling given: No Counseling provided: none History of recent travel: No Physical Exam Physical Exam Appearance: Reports Well-appearing Ill-appearing: Mild Pain Distress: None Eyes: Reports KODY, EOMI and Conjunctiva clear ENT: Reports Ears normal, Nose normal and Oropharynx normal Neck: Supple Respiratory: Reports Airway patent, Rhonchi and Wheezes Cardiovascular: Reports RRR GI/: Reports Soft, No masses and Bowel sounds normal; Denies Nontender and Bowel sounds hyperactive Musculoskeletal: Reports Normal strength, ROM intact, No edema and No calf tenderness Skin: Reports Warm, Dry and Normal color Neurological: Reports Sensation intact, Motor intact, Reflexes intact, Cranial nerves intact and Alert Psychiatric: Reports Affect appropriate Interpretation Radiology Interpretation Radiology Interpretation By: Radiologist Exam Interpreted: CT Scan Re-Evaluation Re-Evaluation Time of Re-Evaluation: 13:06 Status: Improved Vital Signs Stable: Yes Pain Level: 0 Appearance: NAD Lungs: Other (rhonchi and wheezes.) Skin: Warm and Dry Neuro: Alert and Oriented X3 CV: RRR Critical Care Note Critical Care Note Total Critical Care Time (mins): 0 Course Course Hematology/Chemistry: 07/27/20 11:06 07/27/20 11:06 Orders, Labs, Meds: Lab Review 07/27/20 07/27/20 07/27/20 11:05 11:06 11:06 WBC 7.81 RBC 3.91 L Hgb 11.6 L Hct 35.3 L MCV 90.3 MCH 29.7 MCHC 32.9 RDW Coeff of Dominique 13.4 Plt Count 215 Immature Gran % (Auto) 0.4 Neut % (Auto) 67.6 Lymph % (Auto) 19.7 Wallace % (Auto) 8.8 Eos % (Auto) 3.1 Baso % (Auto) 0.4 Neut # (Auto) 5.3 Lymph # (Auto) 1.5 [place] # (Auto) 0.7 Eos # (Auto) 0.2 Baso # (Auto) 0.0 Immature Gran # (Auto) 0.0 Puncture Site Rbrach Base Excess 5.8 H O2 Saturation 98.1 H ABG pH 7.41 ABG pCO2 48.0 H ABG pO2 105.0 H ABG HCO3 30.4 H ABG Total CO2 31.9 H Hemoglobin 0.7 Oxyhemoglobin 95.2 Carboxyhemoglobin 3.0 H Total Hemoglobin 11.7 O2 Delivery Device Cannula Oxygen Liter Flow 2.00 Sodium 132.2 L Potassium 3.84 Chloride 99.2 Carbon Dioxide 30.7 H Anion Gap 6.14 BUN 13.7 Creatinine 0.76 Estimated GFR (MDRD) 101.00 BUN/Creatinine Ratio 18.02 Glucose 98.5 Calcium 8.92 Total Bilirubin 0.55 AST 25.5 ALT 10.1 Alkaline Phosphatase 63.5 Troponin I 0.046 NT-Pro-B Natriuret Pep 278.000 H Total Protein 6.50 Albumin 3.51 Globulin 2.99 Albumin/Globulin Ratio 1.17 Orders Category Date Time Status ABG DRAW REQUEST Stat CARDIO 07/27/20 10:49 Completed EKG-(ED ONLY) Stat CARDIO 07/27/20 10:48 Completed METERED DOSE INHALATION Routine CARDIO 07/27/20 10:52 Completed NPO REMINDER: IMAGING ONCE CARE 07/27/20 10:49 Completed ABG COOX Stat LAB 07/27/20 11:05 Completed CBC W/ AUTO DIFF Stat LAB 07/27/20 11:06 Completed COMPREHENSIVE METABOLIC PANEL Stat LAB 07/27/20 11:06 Completed NT-PROBNP Stat LAB 07/27/20 11:06 Completed RESPIRATORY PANEL 2.1 (PCR) Stat LAB 07/27/20 Ordered TROPONIN I Stat LAB 07/27/20 11:06 Completed Albuterol Inhaler(with Spacer) [Ventolin Hfa (Per Puff- MEDS 07/27/20 10:48 Discontinued with Spacer)] 2 puff IH ONCE ONE Azithromycin [Zithromax] MEDS 07/27/20 13:14 Discontinued 500 mg PO ONCE ONE Ceftriaxone/D5w 1 gm Premix [Rocephin 1 gm/50 ml D5w] MEDS 07/27/20 13:14 Active 1 gm in 50 ml IV ONCE Ipratropium Inhaler(Spacer) [Atrovent Hfa Inhaler (Per MEDS 07/27/20 10:48 Discontinued Puff-with Spacer)] 2 puff IH ONCE ONE Methylprednisolone Sod Succ/Pf [Solu-Medrol 125 mg] MEDS 07/27/20 10:48 Discontinued [address] CHEST PE PROTOCOL Stat RADS 07/27/20 10:48 Completed Medications Generic Name Dose Route Start Last Admin Trade Name Freq PRN Reason Stop Dose Admin CEFTRIAXONE/D5W 1 GM PREMIX 1 gm in 50 mls @ 75 mls/hr 07/27/20 13:14 Rocephin 1 Gm/50 Ml D5w IV 07/27/20 13:53 ONCE STA Discontinued Medications Generic Name Dose Route Start Last Admin Trade Name Freq PRN Reason Stop Dose Admin Albuterol Sulfate 2 puff 07/27/20 10:48 07/27/20 11:14 Albuterol Sulfate (Ventolin Hfa) 18 Gm 1 Puff With Spacer IH 07/27/20 10:49 2 puff ONCE ONE Administration Azithromycin 500 mg 07/27/20 13:14 Azithromycin 250 Mg Tablet PO 07/27/20 13:15 ONCE ONE Ipratropium [place] 2 puff 07/27/20 10:48 07/27/20 11:13 Ipratropium [place] 12.9 Gm Hfa Inhaler Per Puff With Spacer IH 07/27/20 10:49 2 puff ONCE ONE Administration Methylprednisolone Sodium Succinate 125 mg 07/27/20 10:48 07/27/20 11:21 Methylprednisolone Sod Succ/Pf 125 Mg/2 Ml Vial IVP 07/27/20 10:49 125 mg ONCE ONE Administration Vital Signs: Temp Pulse Resp BP Pulse Ox 07/27/20 12:53 88 20 86 L 07/27/20 12:11 83 20 122/78 86 L 07/27/20 11:27 97.3 F L 90 22 133/93 H 98 07/27/20 11:21 84 22 128/79 98 07/27/20 10:29 97.3 F L 94 H 22 130/73 98 Discharge Plan Discharge Patient Disposition: ADMITTED INPATIENT Discharge Problem: COPD exacerbation Pneumonia Qualifiers: Pneumonia type: due to unspecified organism Laterality: bilateral Lung location: upper lobe of lung Qualified Code(s): J18.9 - Pneumonia, unspecified organism ED Provider: NICHO COLLINS Condition: Serious Physician Progress Note: []Pt was d/w Dr Huynh and admitted.
--- NOTE | 2020-07-27 12:36 | CT ---
Exam: CT angiography of the chest with intravenous contrast, PE protocol with 3-D MIP reformats. Comparison: CT chest performed 05/15/2020. Reason for exam: Increasing shortness of breath. FINDINGS: No main, proximal, or segmental pulmonary arterial filling defect Marked emphysematous disease is seen throughout the lung parenchyma. Similar appearing consolidation in the right apex with air bronchograms measuring approximately 4.6 x 2.3 cm. Thick-walled consolidation in the left upper lobe as seen on axial image 49 and coronal image 34 has a cavitary appearance with air bronchograms. Wall thickening has increased when compared to the previous study. The aorta measures up to 4.1 cm. The heart is not enlarged. No pneumothorax or effusion. No suspicious appearing osteoblastic or osteolytic lesion. Lucency in the left humeral head not significantly changed from previous study. Impression: 1. No main, proximal, or segmental pulmonary arterial filling defects are seen. 2. Left upper lobe cavitary appearing lesion with wall thickening that appears increased on today's exam when compared to the previous study. Findings can be seen with scarring, inflammation, infectio n and neoplasm. Further evaluation is recommended. 3. Similar appearing consolidation in the right apex with air bronchograms. Differential remains as above. 4. Moderate to severe emphysematous disease. 5. 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
[2020-07-27] MEDS ORDERED: ZITHROMAX PO ONE (13:14)
[2020-07-27] MEDS: ROCEPHIN 1 GM/50 ML D5W 1 GM/50 ML BAG IV STA ×3 (14:05→17:15)
[2020-07-27] MEDS: VENTOLIN HFA (PER PUFF-WITH SPACER) IH SCH ×2 (14:13→20:05)
[2020-07-27] MEDS: ATROVENT HFA INHALER (PER PUFF-WITH SPACER) IH SCH ×2 (14:13→20:05)
[2020-07-27 14:43] LABS: BORDETELLA PARAPERTUSSIS (PCR) NOT DETECTED (NOT DETECT); BORDETELLA PERTUSSIS (PCR) NOT DETECTED (NOT DETECT); CHLAMYDIA PNEUMONIAE (PCR) NOT DETECTED (NOT DETECT); CORONAVIRUS 229E (PCR) NOT DETECTED (NOT DETECT); CORONAVIRUS HKU1 (PCR) NOT DETECTED (NOT DETECT); CORONAVIRUS NL63 (PCR) NOT DETECTED (NOT DETECT); CORONAVIRUS OC43 (PCR) NOT DETECTED (NOT DETECT); HUMAN METAPNEUMOVIRUS (PCR) NOT DETECTED (NOT DETECT); HUMAN RHINOVIRUS/ENTEROV (PCR) NOT DETECTED (NOT DETECT); INFLUENZA B (PCR) NOT DETECTED (NOT DETECT); MYCOPLASMA PNEUMONIAE (PCR) NOT DETECTED (NOT DETECT); PARAINFLUENZA VIRUS 1 (PCR) NOT DETECTED (NOT DETECT); PARAINFLUENZA VIRUS 2 (PCR) NOT DETECTED (NOT DETECT); PARAINFLUENZA VIRUS 3 (PCR) NOT DETECTED (NOT DETECT); PARAINFLUENZA VIRUS 4 (PCR) NOT DETECTED (NOT DETECT); RESPIRATORY SYNCYTIAL V (PCR) NOT DETECTED (NOT DETECT); SARS_COV_2 (PCR) NOT DETECTED (NOT DETECT)
[2020-07-27 15:06] LABS: BILIRUBIN,URINE Negative (NEGATIVE); CLARITY,URINE Clear (CLEAR); COLOR,URINE Yellow (YELLOW); GLUCOSE, URINE (UA) Negative (NEGATIVE); KETONES,URINE Negative (NEGATIVE); LEUKOCYTE ESTERASE ,URINE Negative (NEGATIVE); NITRITE,URINE Negative (NEGATIVE); PROTEIN,URINE Negative (NEGATIVE); URINE, BLOOD 1+ (NEGATIVE); UROBILINOGEN,URINE 0.2 (0.2)
[2020-07-27 15:14] LABS: SQUAMOUS EPITHELIAL CELL,UR NOT PRESENT (0-5)
[2020-07-27 15:15] LABS: URINE RBC, MICROSCOPIC 0-2 (0-2)
[2020-07-27 15:30] LABS: ADENOVIRUS (PCR) NOT DETECTED (NOT DETECT)
[2020-07-27] MEDS: SODIUM CHLORIDE 1,000 ML IV SCH (15:30)
[2020-07-27 16:58] VITALS: BMI 18.6
[2020-07-27 17:23] LABS: MOLECULAR FLU A NEGATIVE BY NAAT (NEGATIVE); MOLECULAR FLU B NEGATIVE BY NAAT (NEGATIVE)
[2020-07-27] MEDS: NORCO 10-325 PO SCH ×2 (18:19→21:08)
[2020-07-27] MEDS: NEURONTIN PO SCH ×2 (18:19→21:07)
[2020-07-27] MEDS: FERROUS SULFATE PO SCH (21:07)
[2020-07-27] MEDS: ATIVAN PO SCH (21:07)
[2020-07-27] MEDS: SYMBICORT 80-4.5 MCG INHALER IH SCH (21:15)
[2020-07-27] MEDS: DECADRON IM SCH (22:56)
[2020-07-28] MEDS: SODIUM CHLORIDE 1,000 ML IV SCH ×3 (04:26→22:03)
[2020-07-28] MEDS: ATROVENT HFA INHALER (PER PUFF-WITH SPACER) IH SCH ×4 (04:45→19:25)
[2020-07-28] MEDS: VENTOLIN HFA (PER PUFF-WITH SPACER) IH SCH ×4 (04:45→19:25)
[2020-07-28 07:28] LABS: HEMATOCRIT 33.2 % (42.0-52.0); HEMOGLOBIN 10.7 g/dl (14.0-18.0); IMMATURE GRANULOCYTE % (AUTO) 0.3 % (0.0-5.0); LYMPHOCYTES # (AUTO) 0.8 K/uL (0.60-3.4); LYMPHOCYTES % (AUTO) 13.8 (10.0-50.0); MEAN CORPUSCULAR HEMOGLOBIN 29.5 pg (27.0-31.0); MEAN CORPUSCULAR HGB CONC 32.2 (31.8-35.4); MEAN CORPUSCULAR VOLUME 91.5 fl (80.0-94.0); MONOCYTES # (AUTO) 0.4 K/uL (0.4-2.0); MONOCYTES % (AUTO) 6.4 (0-10); NEUTROPHILS # (AUTO) 4.6 K/ul (2.0-6.9); NEUTROPHILS % (AUTO) 79.5 % (42.2-75.2); PLATELET COUNT 218 10^3/uL (140-440); RDW COEFFICIENT OF VARIATION 13.2 % (11.6-14.8); RED BLOOD COUNT 3.63 10^6/ul (4.70-6.10); WHITE BLOOD COUNT 5.74 K/ul (4.2-10.2)
[2020-07-28 07:41] LABS: ALANINE AMINOTRANSFERASE 9.8 U/L (0-50); ALBUMIN 3.33 g/dL (3.5-5.0); ALKALINE PHOSPHATASE 52.9 U/L (56-119); ASPARTATE AMINO TRANSFERASE 24.7 U/L (17-59); BILIRUBIN,TOTAL 0.43 mg/dL (0.2-1.3); BLOOD UREA NITROGEN 18.7 mg/dL (9-20); CALCIUM 8.44 mg/dL (8.4-10.2); CARBON DIOXIDE 29.5 mmol/L (22-30.0); CHLORIDE 98.3 mmol/L (98-107); CREATININE 0.74 mg/dL (0.60-1.10); GLUCOSE 102.9 mg/dL (74-106); POTASSIUM 4.64 mmol/L (3.5-5.1); TOTAL PROTEIN 6.15 g/dL (6.3-8.2)
[2020-07-28] MEDS: ZOLOFT PO SCH (08:55)
[2020-07-28] MEDS: DECADRON IM SCH (08:55)
[2020-07-28] MEDS: ROCEPHIN 1 GM/50 ML D5W 1 GM/50 ML BAG IV SCH (08:56)
[2020-07-28] MEDS: FERROUS SULFATE PO SCH ×2 (08:56→21:01)
[2020-07-28] MEDS: ZITHROMAX PO SCH (08:56)
[2020-07-28] MEDS: NEURONTIN PO SCH ×3 (08:57→21:01)
[2020-07-28] MEDS: ATIVAN PO SCH ×3 (08:57→21:01)
[2020-07-28] MEDS: NORCO 10-325 PO SCH ×3 (08:57→21:01)
[2020-07-28] MEDS: COZAAR PO SCH (08:57)
[2020-07-28] MEDS: SYMBICORT 80-4.5 MCG INHALER IH SCH ×2 (08:58→21:03)
[2020-07-28] MEDS ORDERED: ZITHROMAX 500 MG in SODIUM CHLORIDE 250 ML IV SCH (09:00)
--- NOTE | 2020-07-28 09:20 | PCM.PROG ---
Attending Provider: ATTENDING PROVIDER: Dr. VINNY PITT This patient is seen with Rachael Oliver, Nurse Practitioner. DATE OF SERVICE: 07/28/20 SUBJECTIVE: This 70 year old /WHITE M was hospitalized 07/27/20. The patient is resting comfortably this morning in bed. Shortness of breath improved this morning. No fever. Slight cough. REVIEW OF SYSTEMS: CONSTITUTIONAL: No night sweats. No fatigue, malaise, lethargy. No fever or chills. HEENT: Eyes: No visual changes. No eye pain. No eye discharge. ENT: No runny nose. No epistaxis. No sinus pain. No odynophagia. No congestion. RESPIRATORY: Shortness of breath. Cough. No hemoptysis. CARDIOVASCULAR: No angina symptoms. No CHF symptoms. No atypical chest pain for CAD. No palpitations. No orthopnea.. GASTROINTESTINAL: No abdominal pain. No nausea or vomiting. No diarrhea or constipation. No hematemesis. No hematochezia. GENITOURINARY: No urgency. No frequency. No dysuria. No hematuria. No obstructive symptoms. No discharge. No pain. No significant abnormal bleeding. MUSCULOSKELETAL: No musculoskeletal pain; no joint swelling. NEUROLOGICAL: Awake, alert, oriented to time, place and person. No headache. No neck pain. No syncope. No seizures. No dizziness. PSYCHIATRIC: Not anxious. No depression. No suicidal thoughts. No homicidal thoughts. SKIN: No rash. No lesions. No wounds. ENDOCRINE: No unexplained weight loss. No weight gain. HEMATOLOGIC/LYMPHATIC: No anemia. No purpura. No petechiae. No prolonged or excessive bleeding. No palpable lymph nodes. PHYSICAL EXAMINATION: GENERAL: The patient is awake, alert and oriented, lying/sitting in bed in no distress. VITAL SIGNS: Temperature 98.3 F, Pulse 66, Respiratory Rate 18, BP 106/61, Pulse Ox 100% HEENT: Head normocephalic, atraumatic. Eyes: Extraocular muscles are intact. Pupils are equal, round and reactive to light and accommodation. Ears: No lesions. Nose appeared normal. Throat: No exudate or erythema. NECK: Supple. No JVD, no carotid bruit. No lymphadenopathy or thyromegaly. LUNGS: Diminished breath sounds. Clear to auscultation. Percussion note normal. Chest symmetrical. HEART: S1, S2, no S3. No murmurs. No cyanosis or clubbing. No ascites. Pulses: Dorsalis pedis and posterior tibial pulses +1 to +2 both sides. ABDOMEN: Soft. Non-tender. Bowel sounds active. No CVA tenderness. No mass felt. EXTREMITIES: No edema. Full range of motion of all extremities, equal. NEUROLOGIC: No focal deficit. Cranial nerves II through XII are grossly intact. No headache. No double vision. SKIN: Not dry. Intact. Turgor-normal. LYMPHATIC: No palpable lymph nodes/no lymphedema. MUSCULOSKELETAL: Normal joints with no swelling. Muscle tone is normal. LAB REVIEW: 07/28/20 07:17 07/28/20 07:17 07/28/20 07:17: Sodium 132.0 L, Potassium 4.64, Chloride 98.3, Carbon Dioxide 29 .5, Anion Gap 8.84, BUN 18.7, Creatinine 0.74, Estimated GFR (MDRD) 104.00, BUN/Creatinine Ratio 25.27, Glucose 102.9, Calcium 8.44, Total Bilirubin 0.43, AST 24.7, ALT 9.8, Alkaline Phosphatase 52.9 L, Total Protein 6.15 L, Albumin 3.33 L, Globulin 2.82, Albumin/Globulin Ratio 1.18 07/28/20 07:17: WBC 5.74, RBC 3.63 L, Hgb 10.7 L, Hct 33.2 L, MCV 91.5, MCH 29.5, MCHC 32.2, RDW Coeff of Dominique 13.2, Plt Count 218, Immature Gran % (Auto) 0.3, Neut % (Auto) 79.5 H, Lymph % (Auto) 13.8, [place] % (Auto) 6.4, Eos % (Auto) 0.0, Baso % (Auto) 0.0, Neut # (Auto) 4.6, Lymph # (Auto) 0.8, [place] # (Auto) 0.4, Eos # (Auto) 0.0, Baso # (Auto) 0.0, Immature Gran # (Auto) 0.0 07/28/20 04:40: TSH 0.530 07/27/20 17:00: Influ A Molecular Assay Negative by naat, Influ B Molecular Assay Negative by naat 07/27/20 15:00: Urine Color Yellow, Urine Clarity Clear, Urine pH 6.0, Ur Specific [place] 1.010, Urine Protein Negative, Urine Glucose (UA) Negative, Urine Ketones Negative, Urine Blood 1+ H, Urine Nitrite Negative, Urine Bilirubin Negative, Urine Urobilinogen 0.2, Ur Leukocyte Esterase Negative, Urine Microscopic RBC 0-2, Ur Squamous Epith Cells Not present 07/27/20 14:40: Adenovirus (PCR) Not detected, B. pertussis DNA (PCR) Not detected, B.parapertussis DNA PCR Not detected, C. pneumoniae DNA (PCR) Not detected, Coronavirus OC43 (PCR) Not detected, Coronavirus HKU1 (PCR) Not detected, Coronavirus 229E (PCR) Not detected, Coronavirus NL63 (PCR) Not detected, Human Metapneumovir PCR Not detected, Influenza Type A (PCR) Not detected, Influenza B (RT-PCR) Not detected, M. pneumoniae (PCR) Not detected, Parainfluenza 1 (PCR) Not detected, Parainfluenza 2 (PCR) Not detected, Parainfluenza 3 (PCR) Not detected, Parainfluenza 4 (PCR) Not detected, RSV (PCR) Not detected, Entero/Rhino (PCR) Not detected, SARS-CoV-2 (PCR) Not detected 07/27/20 14:22: Lactic Acid 0.86 07/27/20 14:12: Procalcitonin < 0.05 07/27/20 11:06: Sodium 132.2 L, Potassium 3.84, Chloride 99.2, Carbon Dioxide 30.7 H, Anion Gap 6.14, BUN 13.7, Creatinine 0.76, Estimated GFR (MDRD) 101.00, BUN/Creatinine Ratio 18.02, Glucose 98.5, Calcium 8.92, Total Bilirubin 0.55, AST 25.5, ALT 10.1, Alkaline Phosphatase 63.5, Troponin I 0.046, NT-Pro-B Natriuret Pep 278.000 H, Total Protein 6.50, Albumin 3.51, Globulin 2.99, Albumin/Globulin Ratio 1.17 07/27/20 11:06: WBC 7.81, RBC 3.91 L, Hgb 11.6 L, Hct 35.3 L, MCV 90.3, MCH 29.7, MCHC 32.9, RDW Coeff of Dominique 13.4, Plt Count 215, Immature Gran % (Auto) 0.4, Neut % (Auto) 67.6, Lymph % (Auto) 19.7, [place] % (Auto) 8.8, Eos % (Auto) 3. 1, Baso % (Auto) 0.4, Neut # (Auto) 5.3, Lymph # (Auto) 1.5, [place] # (Auto) 0.7, Eos # (Auto) 0.2, Baso # (Auto) 0.0, Immature Gran # (Auto) 0.0 07/27/20 11:05: Puncture Site Rbrach, Base Excess 5.8 H, O2 Saturation 98.1 H, ABG pH 7.41, ABG pCO2 48.0 H, ABG pO2 105.0 H, ABG HCO3 30.4 H, ABG Total CO2 31.9 H, Hemoglobin 0.7, Oxyhemoglobin 95.2, Carboxyhemoglobin 3.0 H, Total Hemoglobin 11.7, O2 Delivery Device Cannula, Oxygen Liter Flow 2.00 ASSESSMENT: Please see below. 1. Acute COPD exacerbation. 2. End-stage COPD. 3. Chronic anemia. 4. Chronic respiratory failure. 5. History of lung cancer, left lobe. PLAN: 1. Continue steroids. 2. IV antibiotics. Plan and coordination of the patient's care discussed in the presence of Marcos joseph and nurse. CONDITION: Stable SCRIBED BY: PHOEBE BLUE, [employer] Back[employer] Administrator scribed while in presence of service performed by Dr. Pitt/Rachael Oliver APRN on 07/28/20 ([id number])
[2020-07-28] MEDS: PREDNISONE PO SCH (12:06)
[2020-07-29] MEDS: VENTOLIN HFA (PER PUFF-WITH SPACER) IH SCH ×4 (04:50→20:39)
[2020-07-29] MEDS: ATROVENT HFA INHALER (PER PUFF-WITH SPACER) IH SCH ×4 (04:50→20:39)
[2020-07-29 04:54] LABS: EOSINOPHILS % (AUTO) 0.3 % (0.0-7.0); HEMATOCRIT 32.1 % (42.0-52.0); HEMOGLOBIN 10.2 g/dl (14.0-18.0); IMMATURE GRANULOCYTE % (AUTO) 0.4 % (0.0-5.0); LYMPHOCYTES % (AUTO) 13.7 (10.0-50.0); MEAN CORPUSCULAR HEMOGLOBIN 29.5 pg (27.0-31.0); MEAN CORPUSCULAR HGB CONC 31.8 (31.8-35.4); MEAN CORPUSCULAR VOLUME 92.8 fl (80.0-94.0); MONOCYTES # (AUTO) 0.7 K/uL (0.4-2.0); MONOCYTES % (AUTO) 9.7 (0-10); NEUTROPHILS # (AUTO) 5.7 K/ul (2.0-6.9); NEUTROPHILS % (AUTO) 75.9 % (42.2-75.2); PLATELET COUNT 234 10^3/uL (140-440); RDW COEFFICIENT OF VARIATION 13.7 % (11.6-14.8); RED BLOOD COUNT 3.46 10^6/ul (4.70-6.10)
[2020-07-29 05:08] LABS: ALANINE AMINOTRANSFERASE 10.4 U/L (0-50); ALBUMIN 3.02 g/dL (3.5-5.0); ALKALINE PHOSPHATASE 56.2 U/L (56-119); ASPARTATE AMINO TRANSFERASE 30.1 U/L (17-59); BILIRUBIN,TOTAL 0.21 mg/dL (0.2-1.3); CALCIUM 8.38 mg/dL (8.4-10.2); CARBON DIOXIDE 30.2 mmol/L (22-30.0); CHLORIDE 103.7 mmol/L (98-107); CREATININE 0.73 mg/dL (0.60-1.10); GLUCOSE 115.4 mg/dL (74-106); POTASSIUM 3.77 mmol/L (3.5-5.1); TOTAL PROTEIN 5.6 g/dL (6.3-8.2)
[2020-07-29] MEDS: ZOLOFT PO SCH (09:15)
[2020-07-29] MEDS: FERROUS SULFATE PO SCH ×2 (09:15→21:02)
[2020-07-29] MEDS: NORCO 10-325 PO SCH ×3 (09:15→21:02)
[2020-07-29] MEDS: ATIVAN PO SCH ×3 (09:15→21:02)
[2020-07-29] MEDS: COZAAR PO SCH (09:15)
[2020-07-29] MEDS: ZITHROMAX PO SCH (09:15)
[2020-07-29] MEDS: NEURONTIN PO SCH ×3 (09:15→21:02)
[2020-07-29] MEDS: DECADRON IM SCH (09:16)
[2020-07-29] MEDS: SYMBICORT 80-4.5 MCG INHALER IH SCH ×2 (09:17→21:03)
[2020-07-29] MEDS: ROCEPHIN 1 GM/50 ML D5W 1 GM/50 ML BAG IV SCH (09:18)
--- NOTE | 2020-07-29 09:40 | HP ---
DATE OF SERVICE: 07/27/20 HISTORY OF PRESENT ILLNESS: This 70-year-old white male with a long history of COPD, oxygen dependent who presents to the emergency room with worsening shortness of breath. PAST MEDICAL HISTORY: Chronic anemia Chronic respiratory failure COPD, Stage 4, oxygen dependent Chronic bronchitis B12 deficiency History of left lung cancer, quit seeing Dr. Finnegan, now apparently might see Dr. Howard in [place] Neuropathy Depression Smoker Hypertension Severe degenerative joint disease of the spine Anxiety Dyslipidemia Noncompliance with diet, medications and followup PAST SURGICAL HISTORY: Left arm amputation REVIEW OF SYSTEMS: CONSTITUTIONAL: No night sweats. No fatigue, malaise, lethargy. No fever or chills. HEENT: Eyes: No visual changes. No eye pain. No eye discharge. ENT: No runny nose. No epistaxis. No sinus pain. No sore throat. No odynophagia. No ear pain. No congestion. RESPIRATORY: Positive for cough and shortness of breath. No hemoptysis. No shortness of breath. CARDIOVASCULAR: No angina symptoms. No CHF symptoms. No atypical chest pain for CAD. No palpitations. No PND. No orthopnea. GASTROINTESTINAL: No abdominal pain. No nausea or vomiting. No diarrhea or constipation. No hematemesis. No hematochezia. GENITOURINARY: No urgency. No frequency. No dysuria. No hematuria. No obstructive symptoms. No discharge. No pain. No significant abnormal bleeding. MUSCULOSKELETAL: No musculoskeletal pain. No joint swelling. No arthritis. NEUROLOGICAL: No headache. No neck pain. No syncope. No seizures. No dizziness. PSYCHIATRIC: Not anxious. No depression. No suicidal thoughts. No homicidal thoughts. SKIN: No rash. No lesions. No wounds. ENDOCRINE: No unexplained weight loss. No weight gain. HEMATOLOGIC/LYMPHATIC: No anemia. No purpura. No petechiae. No prolonged or excessive bleeding. No palpable lymph nodes. PERSONAL/FAMILY/SOCIAL HISTORY: Former smoker. He lives at home with his . Oxygen dependent. No alcohol or ilicit drug use. MEDICATIONS: Sertraline 200 mg p.o. daily Hydrocodone-Acetaminophen one tab p.o. t.i.d. Lorazepam 0.5 mg p.o. as directed Gabapentin 100 mg p.o. t.i.d. Tiotropium bromide (Spiriva) 18 mcg capsule with inahlation device, one cap INH daily Ferrous Sulfate 324 mg one tab p.o. b.i.d. Losartan (Cozaar) 100 mg p.o. daily Albuterol Sulfate (ProAir Hfa) one INH q4-6h p.r.n. Lorazepam (Ativan) 1 mg p.o. bedtime Albuterol Sulfate 2.5 mg/3 mL solution for nebulization 2.5 INH t.i.d. Prednisone 5 mg p.o. as directed Budesonide-Formoterol (Symbicort) two puff INH b.i.d. ALLERGIES: NKDA PHYSICAL EXAMINATION: VITAL SIGNS: Temperature 97.3, heart rate 94, respiratory rate 22, blood pressure 130/73, pulse ox 86% on 2L. HEENT: Head normocephalic, atraumatic. Eyes: Extraocular muscles are intact. Pupils are equal, round and reactive to light and accommodation. Ears: No lesions. Nose appeared normal. Throat: No exudate or erythema. NECK: Supple. No JVD, no carotid bruit. No lymphadenopathy or thyromegaly. LUNGS: Clear to auscultation. Percussion note normal. Chest symmetrical. HEART: S1, S2, no S3. No murmur. No cyanosis or clubbing. No ascites. Pulses: Dorsalis pedis and posterior tibial pulses +1 to +2 bilaterally. ABDOMEN: Soft. Nontender. Bowel sounds active. No CVA tenderness. No mass felt. EXTREMITIES: No edema. Full range of motion of all extremities, equal. NEUROLOGIC: No focal deficit. Cranial nerves II through XII are grossly intact. No headache, no double vision or headache. SKIN: Not dry. Intact. Turgor - normal. LYMPHATIC: No palpable lymph nodes/no lymphedema. MUSCULOSKELETAL: Normal joints with no swelling. Muscle tone is normal. LABS: White count 7.81, hemoglobin 11.6, hematocrit 35.3, platelets 215. Sodium 132, potassium 3.8, BUN 13, creatinine 0.76. ABGs on 2L 02 sat 98, pH 7.4, pc02 48, p02 105, bicarb 30.4, total c02 31.9. Troponin less than 0.04, BNP 278. CT of the chest shows no acute process, possible worsening of the cavitary lesion on the left. ASSESSMENT: 1. ACUTE COPD EXACERBATION 2. CHRONIC RESPIRATORY FAILURE 3. HISTORY OF LUNG CANCER 4. ANXIETY 5. CHRONIC ANEMIA PLAN: 1. We will admit. 2. Routine telemetry orders. 3. CBC, CMP daily. 4. Start Rocephin 1 gm IV daily. 5. Zithromax 500 mg p.o. daily for 3 days. 6. Continue oxygen 1 to 2L. 7. 4 mg of Decadron IM daily. 8. Start Pulmicort neb 1 mg b.i.d. 9. Albuterol neb q.i.d. LUCAS. 10. Continue home medications. 11. Regular diet. 12. Will follow closely. TIME SPENT: More than 70 minutes. MTDD
[2020-07-29] MEDS: PREDNISONE PO SCH (12:14)
[2020-07-29] MEDS: SODIUM CHLORIDE 1,000 ML IV SCH (12:14)
[2020-07-30] MEDS: SODIUM CHLORIDE 1,000 ML IV SCH (00:37)
[2020-07-30] MEDS: ATROVENT HFA INHALER (PER PUFF-WITH SPACER) IH SCH ×2 (04:50→10:07)
[2020-07-30] MEDS: VENTOLIN HFA (PER PUFF-WITH SPACER) IH SCH ×2 (04:50→10:07)
[2020-07-30 05:39] VITALS: BP 142/72; TEMP 98.2
[2020-07-30 05:56] LABS: BASOPHILS % (AUTO) 0.2 % (0.0-3.0); EOSINOPHILS # (AUTO) 0.1 K/ul (0.0-0.7); EOSINOPHILS % (AUTO) 1.2 % (0.0-7.0); HEMATOCRIT 31.7 % (42.0-52.0); HEMOGLOBIN 9.9 g/dl (14.0-18.0); IMMATURE GRANULOCYTE % (AUTO) 0.3 % (0.0-5.0); LYMPHOCYTES # (AUTO) 0.9 K/uL (0.60-3.4); LYMPHOCYTES % (AUTO) 13.9 (10.0-50.0); MEAN CORPUSCULAR HEMOGLOBIN 29.6 pg (27.0-31.0); MEAN CORPUSCULAR HGB CONC 31.2 (31.8-35.4); MEAN CORPUSCULAR VOLUME 94.6 fl (80.0-94.0); MONOCYTES # (AUTO) 0.6 K/uL (0.4-2.0); MONOCYTES % (AUTO) 8.8 (0-10); NEUTROPHILS % (AUTO) 75.6 % (42.2-75.2); PLATELET COUNT 206 10^3/uL (140-440); RDW COEFFICIENT OF VARIATION 13.8 % (11.6-14.8); RED BLOOD COUNT 3.35 10^6/ul (4.70-6.10); WHITE BLOOD COUNT 6.56 K/ul (4.2-10.2)
[2020-07-30 06:09] LABS: ALANINE AMINOTRANSFERASE 11.6 U/L (0-50); ALBUMIN 2.97 g/dL (3.5-5.0); ALKALINE PHOSPHATASE 63.7 U/L (56-119); ASPARTATE AMINO TRANSFERASE 28.7 U/L (17-59); BILIRUBIN,TOTAL 0.23 mg/dL (0.2-1.3); BLOOD UREA NITROGEN 15.7 mg/dL (9-20); CALCIUM 8.62 mg/dL (8.4-10.2); CARBON DIOXIDE 30.9 mmol/L (22-30.0); CHLORIDE 104.3 mmol/L (98-107); CREATININE 0.72 mg/dL (0.60-1.10); GLUCOSE 95.1 mg/dL (74-106); POTASSIUM 4.06 mmol/L (3.5-5.1); SODIUM 136.9 mmol/L (134.5-145); TOTAL PROTEIN 5.18 g/dL (6.3-8.2)
[2020-07-30] MEDS: COZAAR PO SCH (09:07)
[2020-07-30] MEDS: ZOLOFT PO SCH (09:07)
[2020-07-30] MEDS: NEURONTIN PO SCH (09:07)
[2020-07-30] MEDS: DECADRON IM SCH (09:07)
[2020-07-30] MEDS: NORCO 10-325 PO SCH (09:07)
[2020-07-30] MEDS: FERROUS SULFATE PO SCH (09:07)
[2020-07-30] MEDS: ATIVAN PO SCH (09:07)
[2020-07-30] MEDS: SYMBICORT 80-4.5 MCG INHALER IH SCH (09:08)
[2020-07-30] MEDS: ROCEPHIN 1 GM/50 ML D5W 1 GM/50 ML BAG IV SCH (09:08)
--- NOTE | 2020-07-30 10:36 | PCM.PROG ---
Attending Provider: ATTENDING PROVIDER: Dr. VINNY PITT This patient is seen with Rachael Oliver, Nurse Practitioner. DATE OF SERVICE: 07/30/20 SUBJECTIVE: This 70 year old /WHITE M was hospitalized 07/27/20. The patient is resting comfortably in bed. Shortness of breath has improved. He does have chronic respiratory failure; however, I feel he gets more short of breath with anxiety and then panics. Sputum culture negative. He is eating well and states he is ready to go home. REVIEW OF SYSTEMS: CONSTITUTIONAL: No night sweats. No fatigue, malaise, lethargy. No fever or chills. HEENT: Eyes: No visual changes. No eye pain. No eye discharge. ENT: No runny nose. No epistaxis. No sinus pain. No odynophagia. No congestion. RESPIRATORY: Cough and shortness of breath. No hemoptysis. CARDIOVASCULAR: No angina symptoms. No CHF symptoms. No atypical chest pain for CAD. No palpitations. No orthopnea.. GASTROINTESTINAL: No abdominal pain. No nausea or vomiting. No diarrhea or constipation. No hematemesis. No hematochezia. GENITOURINARY: No urgency. No frequency. No dysuria. No hematuria. No obstructive symptoms. No discharge. No pain. No significant abnormal bleeding. MUSCULOSKELETAL: No musculoskeletal pain; no joint swelling. NEUROLOGICAL: Awake, alert, oriented to time, place and person. No headache. No neck pain. No syncope. No seizures. No dizziness. PSYCHIATRIC: Not anxious. No depression. No suicidal thoughts. No homicidal thoughts. SKIN: No rash. No lesions. No wounds. ENDOCRINE: No unexplained weight loss. No weight gain. HEMATOLOGIC/LYMPHATIC: No anemia. No purpura. No petechiae. No prolonged or excessive bleeding. No palpable lymph nodes. PHYSICAL EXAMINATION: GENERAL: The patient is awake, alert and oriented, lying/sitting in bed in no distress. VITAL SIGNS: Temperature 98.2 F, Pulse 69, Respiratory Rate 18, BP 142/72, Pulse Ox 99% HEENT: Head normocephalic, atraumatic. Eyes: Extraocular muscles are intact. Pupils are equal, round and reactive to light and accommodation. Ears: No lesions. Nose appeared normal. Throat: No exudate or erythema. NECK: Supple. No JVD, no carotid bruit. No lymphadenopathy or thyromegaly. LUNGS: Diminished breath sounds. Clear to auscultation. Percussion note normal. Chest symmetrical. HEART: S1, S2, no S3. No murmurs. No cyanosis or clubbing. No ascites. Pulses: Dorsalis pedis and posterior tibial pulses +1 to +2 both sides. ABDOMEN: Soft. Non-tender. Bowel sounds active. No CVA tenderness. No mass felt. EXTREMITIES: No edema. Full range of motion of all extremities, equal. NEUROLOGIC: No focal deficit. Cranial nerves II through XII are grossly intact. No headache. No double vision. SKIN: Not dry. Intact. Turgor-normal. LYMPHATIC: No palpable lymph nodes/no lymphedema. MUSCULOSKELETAL: Normal joints with no swelling. Muscle tone is normal. LAB REVIEW: 07/30/20 04:53 07/30/20 04:53 07/30/20 04:53: Sodium 136.9, Potassium 4.06, Chloride 104.3, Carbon Dioxide 30.9 H, Anion Gap 5.76, BUN 15.7, Creatinine 0.72, Estimated GFR (MDRD) 108.00, BUN/Creatinine Ratio 21.80, Glucose 95.1, Calcium 8.62, Total Bilirubin 0.23, AST 28.7, ALT 11.6, Alkaline Phosphatase 63.7, Total Protein 5.18 L, Albumin 2.97 L, Globulin 2.21, Albumin/Globulin Ratio 1.34 07/30/20 04:53: WBC 6.56, RBC 3.35 L, Hgb 9.9 L, Hct 31.7 L, MCV 94.6 H, MCH 29.6, MCHC 31.2 L, RDW Coeff of Dominique 13.8, Plt Count 206, Immature Gran % (Auto) 0.3, Neut % (Auto) 75.6 H, Lymph % (Auto) 13.9, [place] % (Auto) 8.8, Eos % (Auto) 1.2, Baso % (Auto) 0.2, Neut # (Auto) 5.0, Lymph # (Auto) 0.9, [place] # (Auto) 0.6, Eos # (Auto) 0.1, Baso # (Auto) 0.0, Immature Gran # (Auto) 0.0 ASSESSMENT: Please see below. 1. Acute COPD exacerbation. 2. Chronic respiratory failure. 3. History of left lung cancer. PLAN: 1. Keflex 500 mg t.i.d. times 7 days. 2. Prednisone 10 mg b.i.d. times 5 days then back to the home dose. 3. Nebulizer at home. 4. D/C IV fluids. 5. D/C home. 6. The patient is following with Dr. Howard in [place]. Plan and coordination of the patient's care discussed in the presence of Splash Line Operator and nurse. CONDITION: Stable SCRIBED BY: PHOEBE BLUE Jordan Worker scribed while in presence of service performed by Dr. Pitt/Rachael Oliver APRN on 07/30/20 ([id number])
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
--- NOTE | 2020-07-30 11:23 | PN ---
DATE OF SERVICE: 07/27/2020 ADMISSION NOTE SUBJECTIVE: 70 year old male that has a severe end stage chronic lung disease came into the emergency room brought by because of increasing shortness of breath. On CT scan the patient shows cavitary with possibility of infiltrate. The patient has these type of findings with scarring for long time. The patient was hospitalized for further treatment of acute exacerbation of COPD with steroids and antibiotics and NEBS treatment. The patient's prognosis is guarded. TIME SPENT: More than 30 minutes. Plan and coordination of the patient's care discussed in the presence of nurse. ROBIN
--- NOTE | 2020-07-30 14:30 | PN ---
DATE OF SERVICE: 07/28/2020 SUBJECTIVE: The patient was seen and examined with the Nurse Practitioner. The patient is less short of breath. He is on steroids, antibiotics, NEBS and inhalers. The patient's problem is he is non-compliant of recommendations and medications. TIME SPENT: More than 30 minutes. Plan and coordination of the patient's care discussed in the presence of nurse. ROBIN
--- NOTE | 2020-08-03 11:07 | PN ---
DATE OF SERVICE: 07/29/2020 SUBJECTIVE: 70 year old white male hospitalized with acute exacerbation of COPD with bilateral lower lobe infiltrate. His condition seems to have improved. He is breathing a lot better. The patient wants to go home. He says that he is not short of breath and not coughing at least at rest. REVIEW OF SYSTEMS: CONSTITUTIONAL: No night sweats. No fatigue, malaise, lethargy. No fever or chills. HEENT: Eyes: No visual changes. No eye pain. No eye discharge. ENT: No runny nose. No epistaxis. No sinus pain. No sore throat. No odynophagia. No congestion. RESPIRATORY: No cough, no congestion. No hemoptysis. No shortness of breath. CARDIOVASCULAR: No angina symptoms. No CHF symptoms. No atypical chest pain for CAD. No palpitations. No PND. No orthopnea. GASTROINTESTINAL: No abdominal pain. No nausea or vomiting. No diarrhea or constipation. No hematemesis. No hematochezia. Appetite has improved. GENITOURINARY: No urgency. No frequency. No dysuria. No hematuria. No obstructive symptoms. No discharge. No pain. No significant abnormal bleeding. MUSCULOSKELETAL: No musculoskeletal pain; no joint swelling. NEUROLOGICAL: No headache. No neck pain. No syncope. No seizures. No dizziness. PSYCHIATRIC: Not anxious. No depression. No suicidal thoughts. No homicidal thoughts. SKIN: No rash. No lesions. No wounds. ENDOCRINE: No unexplained weight loss. No weight gain. HEMATOLOGIC/LYMPHATIC: No anemia. No purpura. No petechiae. No prolonged or excessive bleeding. No palpable lymph nodes. PHYSICAL EXAMINATION: VITAL SIGNS: Temperature 97.8, pulse 64, respiratory rate 18, blood pressure 117/66 and pulse ox 100% with 2 liters. HEENT: Head normocephalic, atraumatic. Eyes: Extraocular muscles are intact. Pupils are equal, round and reactive to light and accommodation. Ears: No lesions. Nose appeared normal. Throat: No exudate or erythema. NECK: Supple. No JVD, no carotid bruit. No lymphadenopathy or thyromegaly. LUNGS: Decreased breath sounds but clear to auscultation. Percussion note normal. Chest symmetrical. HEART: S1, S2, no S3. No murmurs. No cyanosis or clubbing. No ascites. Pulses: Dorsalis pedis and posterior tibial pulses +1 to +2 bilaterally. ABDOMEN: Soft. Nontender. Bowel sounds active. No CVA tenderness. No mass felt. Above elbow amputation. EXTREMITIES: No edema. Full range of motion of all extremities, equal. NEUROLOGIC: No focal deficit. Cranial nerves II through XII are grossly intact. No headache. No double vision. SKIN: Not dry. Intact. Turgor - normal. LYMPHATIC: No palpable lymph nodes/no lymphedema. MUSCULOSKELETAL: Normal joints with no swelling. Muscle tone is normal. LABS: Hgb 10.2, hct 32, WBC 7,500 normal differential, creatinine 0.7, BUN 20, potassium 3.7 ASSESSMENT: 1. Chronic respiratory failure with severe chronic lung disease with acute exacerbation with possibility of pneumonitis seems to be improving with IV antibiotics, steroids and NEBS. CONDITION: Stable. TIME SPENT: More than 30 minutes. Plan and coordination of the patient's care discussed in the presence of nurse. ROBIN
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
--- NOTE | 2020-08-17 13:06 | PN ---
DATE OF SERVICE: 07/30/2020 SUBJECTIVE: The patient was seen and examined with the Nurse Practitioner. The patient's condition seems to have improved. Bronchitis and COPD exacerbation has resolved. He will discharged home. CONDITION: Stable. TIME SPENT: More than 30 minutes. Plan and coordination of the patient's care discussed in the presence of nurse. ROBIN
--- NOTE | 2020-08-17 13:07 | PN ---
07/27/2020: Level 5 07/28/2020: Intermediate 07/29/2020: Intermediate 07/30/2020: D as in discharge MTDD
== END 2020-07-30 11:57 | disposition home or self-care (01) | DRG 204 ==
LOC: ED 10:28 → MEDSURG A 16:06
PROVIDERS: ADMIT Internal Medicine; ATTEND Internal Medicine
DX: D64.9 Anemia, unspecified; J44.1 Chronic obstructive pulmonary disease with (acute) exacerbation; R05 Cough; R06.02 Shortness of breath; Z99.81 Dependence on supplemental oxygen; Z20.822 Contact with and (suspected) exposure to COVID-19; I10 Essential (primary) hypertension; R06.00 Dyspnea, unspecified; J96.10 Chronic respiratory failure, unspecified whether with hypoxia or hypercapnia; F41.9 Anxiety disorder, unspecified; J18.9 Pneumonia, unspecified organism; R06.2 Wheezing; G62.9 Polyneuropathy, unspecified; E53.8 Deficiency of other specified B group vitamins; F32.9 Major depressive disorder, single episode, unspecified; J43.9 Emphysema, unspecified